=== PATIENT | female | born 1955 | race Caucasian/White ===

== ENCOUNTER 2022-11-25 10:02 | Inpatient (IN) | payer MEDICARE, MEDICAID, SELFPAY ==
[2022-11-25] VITALS (88 sets, daily range): BP systolic 58–145; BP diastolic 45–105; PULSE 73–119; RESP 12–31; TEMP 36.8–36.9; O2SAT 20–100; BMI 43.4; BMI 36.6
--- NOTE | 2022-11-25 09:54 | XR_ITS ---
The [address] [address] Patient Name: ANDERSON IZQUIERDO MRN: [id number] date: 1955 Sex: F Assigned Patient Location: ER Current Patient Location: ED.MAIN Accession/Order Number: [id number] Exam Date: 11/25/2022 10:22 Report Date: 11/25/2022 11:20 At the request of: ASHLEY CLARK Procedure: XR chest 1V XR chest 1V CLINICAL HISTORY: Shortness of breath. COMPARISON: 11/03/2020. TECHNIQUE: Single AP portable upright view of the chest. FINDINGS: Lungs are moderately well-expanded with mild perihilar congestion similar to prior. Cannot exclude trace left effusion but decreased from prior. No effusion on the right. No other active airspace opacities. No pneumothorax. Stable cardiomegaly. Atherosclerotic aorta. Osteopenia. Thoracic spondylosis. IMPRESSION: Cardiomegaly and congestion. Question trace left effusion but decreased from prior. Electronically authenticated by: SCOTTIE HOUSER Date: 11/25/2022 11:20
--- NOTE | 2022-11-25 09:54 | ECG_ITS ---
The [facility] Test Date: 2022-11-25 Pat Name: Alexa Christine Department: Room: - Gender: Female Office Specialist: : 1955 Requested By: MERVAT ARECHIGA Order Number: [id number] Reading MD: KAYLA KNOX Measurements Intervals Gerlaw Rate: 98 P: -19135 KS: -95187 QRS: 32 QRSD: 88 T: 188 QT: 336 QTc: 391 Interpretive Statements 1210 Atrial fibrillation 2420 RSR (QR) in lead V1/V2, consistent with right ventricular conduction delay Low voltage across the precordium 57056 Twave abnormality, possible inferolateral ischemia or digitalis effectt 7300 Indeterminate axis 9150 abnormal ECG No previous ECG available for comparison Electronically Signed On 11-26-2022 11:43:05 EDT by KAYLA KNOX
[2022-11-25 10:18] LABS: Basophils Absolute Auto 0.1 10^3/uL (0.0-0.1); Basophils Percent Auto 0.4 % (0.2-2.0); Eosinophils Absolute Auto 0.1 10^3/uL (0.0-0.7); Eosinophils Percent Auto 1.1 % (0.9-7.0); Hematocrit 41.7 % (36.0-48.0); Hemoglobin 12.2 g/dL (12.0-16.0); Immature Granulocytes Abs Auto 0.07 10^3/uL (0.00-0.03); Immature Granulocytes Pct Auto 0.6 % (0.0-0.5); Lymphocytes Absolute Auto 1.6 10^3/uL (1.2-3.8); Lymphocytes Percent Auto 12.9 % (20.5-60.0); Mean Corpuscular HGB Conc 29.3 g/dL (29.9-35.2); Mean Corpuscular Hemoglobin 26.5 pg (26.7-34.0); Mean Corpuscular Volume 90.7 fL (81.0-99.0); Mean Platelet Volume 9.3 fL (9.5-13.5); Monocytes Absolute Auto 0.9 10^3/uL (0.3-0.8); Monocytes Percent Auto 7.4 % (1.7-12.0); Neutrophils Absolute Auto 9.3 10^3/uL (1.4-6.5); Neutrophils Percent Auto 77.6 % (43.0-75.0); Platelet Count 213 10^3/uL (150-450); Red Cell Distribution Width 15.5 % (11.0-15.0)
[2022-11-25 10:30] LABS: HCO3 ABG 46.7 mmol/L (22.0-26.0); PO2 ABG 64.8 mmHg (80.0-100.0)
[2022-11-25 10:31] LABS: Allen Test POS (POSITIVE); Base Excess ABG 18.9 mmol/L (-2.0-2.0); Liters per Minute 5; O2 Mode NASAL CANNULA; Oxygen Saturation ABG 89.7 %; Puncture Site RIGHT RADIAL
[2022-11-25 10:33] LABS: pH ABG 7.221 (7.350-7.450)
[2022-11-25 10:44] LABS: Anion Gap 3.5; BUN Creatinine Ratio 18.6; Calcium 9.2 mg/dL (8.5-10.1); Carbon Dioxide 45.4 mmol/L (21.0-32.0); Chloride 97 mmol/L (98-107); Estimated GFR (African America >60 (>=60); Estimated GFR (Non-African Ame >60 (>=60); Glucose 173 mg/dL (74-106); Lactate/Lactic Acid 1.1 mmol/L (0.4-2.0); Potassium 3.9 mmol/L (3.5-5.1); Sodium 142 mmol/L (136-145); Troponin I High Sensitivity 21.9 pg/mL (4.0-51.3)
[2022-11-25] MEDS: METHYLPREDNISOLONE SOD SUCC PF 125 MG/2 ML VIAL IVP (10:59)
--- NOTE | 2022-11-25 11:03 | ED.SOB1 ---
HPI - SOB/Dyspnea General Chief Complaint: Shortness of Breath/Dyspnea Stated Complaint: shortness of breath Time Seen by Provider: 11/25/22 10:03 Source: caregiver Source comment: [facility] Mode of arrival: ambulance Limitations: altered mental status History of Present Illness HPI Narrative: patient brought in by ambulance for treatment of shortness fo breath, which began a few days ago but acutely worsened last night. No fever or chills. She is coughing and crying on arrival. Related Data Home Medications Medication Instructions Recorded Confirmed apixaban 5 mg tablet (Eliquis) 5 mg PO BID 11/25/22 11/25/22 atorvastatin 20 mg tablet 20 mg PO .QHS 11/25/22 11/25/22 digoxin 125 mcg (0.125 mg) tablet 0.125 mg PO .QD 11/25/22 11/25/22 dulaglutide 3 mg/0.5 mL 3 mg subcut QWEEK 11/25/22 11/25/22 subcutaneous pen injector (Trulicity) empagliflozin 25 mg tablet 25 mg PO .QD 11/25/22 11/25/22 (Jardiance) fluticasone 500 mcg-salmeterol 50 1 inh inhalation BID 11/25/22 11/25/22 mcg/dose blistr powdr for inhalation (Advair Diskus) furosemide 20 mg tablet 40 mg PO .QD 11/25/22 11/25/22 furosemide 40 mg tablet 40 mg PO .QD 11/25/22 11/25/22 gabapentin 100 mg capsule 100 mg PO .QD 11/25/22 11/25/22 insulin aspart U-100 100 unit/mL subcut 11/25/22 (3 mL) subcutaneous pen (Novolog FlexPen U-100 Insulin aspart) ipratropium 0.5 mg-albuterol 3 mg 3 ml inhalation Q4H PRN shortness 11/25/22 11/25/22 (2.5 mg base)/3 mL nebulization of breath or wheezing soln ipratropium bromide 21 mcg (0.03 2 spray intranasal QID PRN allergy 11/25/22 11/25/22 %) nasal spray symptoms metoprolol succinate 100 mg 100 mg PO .QD 11/25/22 11/25/22 tablet,extended release 24 hr metoprolol succinate 50 mg 50 mg PO .QD 11/25/22 11/25/22 tablet,extended release 24 hr ondansetron HCl 4 mg tablet 4 mg PO BID PRN nausea and vomiting 11/25/22 11/25/22 potassium chloride 20 mEq 20 meq PO .QD 11/25/22 11/25/22 tablet,extended release(part/cryst) sacubitril 49 mg-valsartan 51 mg 1 tab PO BID 11/25/22 11/25/22 tablet (Entresto) spironolactone 50 mg tablet 50 mg PO .QD 11/25/22 11/25/22 trazodone 50 mg tablet 50 mg PO .QHS 11/25/22 11/25/22 triamcinolone acetonide 0.1 % 1 applic topical PRN 11/25/22 11/25/22 topical cream Allergies Allergy/AdvReac Type Severity Reaction Status Date / Time cephalexin [From Keflex] Allergy Intermediate Verified 11/25/22 09:54 silver sulfadiazine Allergy Intermediate Verified 11/25/22 09:54 [From Silvadene] Exam Narrative Exam Narrative: Nurses notes and vital signs reviewed and patient is not hypoxic. afebrile General: Moaning and crying on arrival. Skin: Warm, dry, no pallor noted. Head: Normocephalic, atraumatic. Eye: Pupils are equal, round and EOMI. No scleral icterus. Ears, Nose, Mouth, and Throat: Oral mucosa is moist Cardiovascular: borderline tachycardia. Respiratory: Accessory muscle use or respiratory distress. Lungs with rales and rhonchi throughout Musculoskeletal: normal ROM, no calf or popliteal tenderness, trace lower extremity edema/swelling GI: Abdomen is soft, non-distended. Normal bowel sounds. No tenderness to palpation. No rebound, guarding, or rigidity noted. Neurological: A&O x4. No cranial nerve dysfunction observed. No truncal ataxia. Moves all extremities. Sensation intact. Psychiatric: Cooperative and interactive. Normal mood and affect. Constitutional Vital Signs - 24 hr 11/25/22 09:46 11/25/22 10:07 11/25/22 09:53 Temperature 98.5 F Pulse Rate 110 H Pulse Rate [Monitor] 108 H Respiratory Rate 25 H 20 Blood Pressure Blood Pressure [Left Arm] 92/62 Pulse Oximetry 90 L 90 L 92 L Oxygen Delivery Method Nasal Cannula Nasal Cannula Oxygen Delivery Flow Rate 5 5 Fraction of Inspired Oxygen 11/25/22 09:55 11/25/22 09:55 11/25/22 09:55 Temperature Pulse Rate 100 H 107 H 96 H Pulse Rate [Monitor] Respiratory Rate 25 H 26 H 24 Blood Pressure 82/62 L 82/62 L Blood Pressure [Left Arm] Pulse Oximetry 90 L 92 L Oxygen Delivery Method Oxygen Delivery Flow Rate Fraction of Inspired Oxygen 11/25/22 10:02 11/25/22 10:10 11/25/22 10:48 Temperature Pulse Rate 97 H 97 H Pulse Rate [Monitor] Respiratory Rate 30 H 25 H Blood Pressure Blood Pressure [Left Arm] Pulse Oximetry 93 L 89 L 92 L Oxygen Delivery Method BIPAP Oxygen Delivery Flow Rate Fraction of Inspired Oxygen 11/25/22 10:51 11/25/22 10:51 11/25/22 11:09 Temperature Pulse Rate 104 H Pulse Rate [Monitor] Respiratory Rate Blood Pressure 78/50 L Blood Pressure [Left Arm] Pulse Oximetry 92 L 92 L Oxygen Delivery Method BIPAP Oxygen Delivery Flow Rate Fraction of Inspired Oxygen 40 40 11/25/22 10:20 11/25/22 10:30 11/25/22 10:40 Temperature Pulse Rate 91 H 101 H 92 H Pulse Rate [Monitor] Respiratory Rate 23 25 H 23 Blood Pressure Blood Pressure [Left Arm] Pulse Oximetry 91 L 91 L 91 L Oxygen Delivery Method Oxygen Delivery Flow Rate Fraction of Inspired Oxygen 11/25/22 10:44 11/25/22 10:44 11/25/22 10:44 Temperature Pulse Rate 88 102 H 114 H Pulse Rate [Monitor] Respiratory Rate 20 17 19 Blood Pressure 78/52 L 78/52 L Blood Pressure [Left Arm] Pulse Oximetry 90 L 89 L 92 L Oxygen Delivery Method Oxygen Delivery Flow Rate Fraction of Inspired Oxygen 11/25/22 11:00 11/25/22 11:05 11/25/22 11:10 Temperature Pulse Rate 90 103 H 107 H Pulse Rate [Monitor] Respiratory Rate 20 15 16 Blood Pressure 58/45 L Blood Pressure [Left Arm] Pulse Oximetry 88 L 89 L 94 L Oxygen Delivery Method Oxygen Delivery Flow Rate Fraction of Inspired Oxygen 11/25/22 11:20 11/25/22 11:30 11/25/22 11:40 Temperature Pulse Rate 108 H 100 H 106 H Pulse Rate [Monitor] Respiratory Rate 16 21 19 Blood Pressure Blood Pressure [Left Arm] Pulse Oximetry 95 95 98 Oxygen Delivery Method Oxygen Delivery Flow Rate Fraction of Inspired Oxygen 11/25/22 11:46 11/25/22 11:46 11/25/22 11:50 Temperature Pulse Rate 89 92 H 101 H Pulse Rate [Monitor] Respiratory Rate 13 15 16 Blood Pressure Blood Pressure [Left Arm] Pulse Oximetry 96 99 96 Oxygen Delivery Method Oxygen Delivery Flow Rate Fraction of Inspired Oxygen 11/25/22 11:59 11/25/22 12:00 11/25/22 12:00 Temperature Pulse Rate 91 H 87 88 Pulse Rate [Monitor] Respiratory Rate 22 19 19 Blood Pressure 109/60 109/60 Blood Pressure [Left Arm] Pulse Oximetry 93 L 89 L 93 L Oxygen Delivery Method Oxygen Delivery Flow Rate Fraction of Inspired Oxygen 11/25/22 12:16 11/25/22 12:16 Temperature Pulse Rate 84 91 H Pulse Rate [Monitor] Respiratory Rate 15 14 Blood Pressure 114/65 114/65 Blood Pressure [Left Arm] Pulse Oximetry 99 92 L Oxygen Delivery Method Oxygen Delivery Flow Rate Fraction of Inspired Oxygen Course Vital Signs Vital signs: Vital Signs Temperature 98.5 F 11/25/22 09:46 Pulse Rate 108 H 11/25/22 09:46 Respiratory Rate 25 H 11/25/22 09:46 Blood Pressure 92/62 11/25/22 09:46 Pulse Oximetry 90 L 11/25/22 09:46 Oxygen Delivery Method Nasal Cannula 11/25/22 09:46 Oxygen Delivery Flow Rate 5 11/25/22 09:46 Temperature 98.2 F 11/25/22 13:33 Pulse Rate 88 11/25/22 18:16 Respiratory Rate 28 H 11/25/22 18:16 Blood Pressure 109/94 H 11/25/22 18:16 Pulse Oximetry 95 11/25/22 18:16 Oxygen Delivery Method Nasal Cannula 11/25/22 16:24 Oxygen Delivery Flow Rate 5 11/25/22 16:24 Fraction of Inspired Oxygen 40 11/25/22 14:53 MDM - SOB/Dyspnea MDM Narrative Medical decision making narrative: Patient was placed on maintenance mechanic millwright and EKG obtained. Blood drawn and sent for evaluation. portable chest x-ray obtained. ABG obtained. The patient's pH is 7.22 but her PCO2 was 114 hours patient to be started on BiPAP. Chest x-ray is consistent with acute congestive heart failure. BNP elevated. The patient initially had a blood pressure with borderline hypotension. I was reluctant to start normal saline IV fluid to the patient's exam findings and history of congestive heart failure. White blood cell count was elevated at 13k but lactate was negative. Patient was given IV Levaquin for coverage of any infiltrate that may not be identified due to the cephalization from the congestive heart failure. The cultures were obtained and are pending. The patient's blood pressure remained low therefore I ordered normal saline IV fluid at 500 mL's but also ordered 40 mg of Lasix IV. I ordered pressors to be started. the patient will need to be admitted to the ICU for continued care and monitoring of her blood pressure as well as and BiPAP use. Call placed to the on-call physician to discuss admission. Dr Chambers and I discussed the patient's case and she will be admitted for further evaluation and testing in the ICU. Lab Data Attestation: I reviewed the patient's lab results. Labs: Lab Results 11/25/22 11/25/22 Range/Units 10:01 10:19 WBC 12.0 H (4.0-11.0) 10^3/uL RBC 4.60 (4.20-5.40) 10^6/uL Hgb 12.2 (12.0-16.0) g/dL Hct 41.7 (36.0-48.0) % MCV 90.7 (81.0-99.0) fL MCH 26.5 L (26.7-34.0) pg MCHC 29.3 L (29.9-35.2) g/dL RDW 15.5 H (11.0-15.0) % Plt Count 213 (150-450) 10^3/uL MPV 9.3 L (9.5-13.5) fL Neut % (Auto) 77.6 H (43.0-75.0) % Lymph % (Auto) 12.9 L (20.5-60.0) % Sanders % (Auto) 7.4 (1.7-12.0) % Eos % (Auto) 1.1 (0.9-7.0) % Baso % (Auto) 0.4 (0.2-2.0) % Neut # (Auto) 9.3 H (1.4-6.5) 10^3/uL Lymph # (Auto) 1.6 (1.2-3.8) 10^3/uL Sanders # (Auto) 0.9 H (0.3-0.8) 10^3/uL Eos # (Auto) 0.1 (0.0-0.7) 10^3/uL Baso # (Auto) 0.1 (0.0-0.1) 10^3/uL Abs Immat Gran (auto) 0.07 H (0.00-0.03) 10^3/uL Imm/Tot Granulo (auto) 0.6 H (0.0-0.5) % Puncture Site Right radial ABG pH 7.221 L* (7.350-7.450) ABG pCO2 114.0 H* (35.0-45.0) mmHg ABG pO2 64.8 L (80.0-100.0) mmHg ABG HCO3 46.7 H (22.0-26.0) mmol/L ABG O2 Saturation 89.7 % ABG Base Excess 18.9 H (-2.0-2.0) mmol/L Mariano Test Pos (POSITIVE) O2 Liters/Min 5 Sodium 142 (136-145) mmol/L Potassium 3.9 (3.5-5.1) mmol/L Chloride 97 L (98-107) mmol/L Carbon Dioxide 45.4 H (21.0-32.0) mmol/L Anion Gap 3.5 BUN 13.0 (7.0-18.0) mg/dL Creatinine 0.70 (0.55-1.02) mg/dL Est GFR ( Amer) >60 (>=60) Est GFR (Non-Af Amer) >60 (>=60) BUN/Creatinine Ratio 18.6 Glucose 173 H (74-106) mg/dL Lactate 1.1 (0.4-2.0) mmol/L Calcium 9.2 (8.5-10.1) mg/dL Troponin I High Sens 21.9 (4.0-51.3) pg/mL NT-Pro-B Natriuret Pep 2297.0 H* (<=900.0) pg/mL ABG Data Attestation: I have reviewed the pertinent ABG results. Interpretation: acidosis with CO2 retention Imaging Data Chest x-ray: Attestation: I have reviewed the pertinent imaging results. Radiologist's impression: Patient Name: ANDERSON IZQUIERDO MRN: [facility]:[id number] date: 1955 Sex: F Assigned Patient Location: ER Current Patient Location: ED.MAIN Accession/Order Number: [id number] Exam Date: 11/25/2022 10:22 Report Date: 11/25/2022 11:20 At the request of: ASHLEY CLARK Procedure: XR chest 1V XR chest 1V CLINICAL HISTORY: Shortness of breath. COMPARISON: 11/03/2020. TECHNIQUE: Single AP portable upright view of the chest. FINDINGS: Lungs are moderately well-expanded with mild perihilar congestion similar to prior. Cannot exclude trace left effusion but decreased from prior. No effusion on the right. No other active airspace opacities. No pneumothorax. Stable cardiomegaly. Atherosclerotic aorta. Osteopenia. Thoracic spondylosis. IMPRESSION: Cardiomegaly and congestion. Question trace left effusion but decreased from prior. Electronically authenticated by: SCOTTIE HOUSER Date: 11/25/2022 11:20 ECG Data Attestation: ?I have reviewed the pertinent ECG results. Interpretation: EKG interpretation: Emergency Department physician interpretation. atrial fibrillation at 98bpm. Indeterminate axis, Right ventricular conduction delay. Non-specific ST-T changes. No ST segment elevation. SOme ST depression noted. Discharge Plan Discharge Chief Complaint: Shortness of Breath/Dyspnea Clinical Impression: Acute hypotension, Congestive heart failure Patient Disposition: Admitted As Inpatient Time of Disposition Decision: 11:04 Discharge Date/Time: 11/25/22 13:24
[2022-11-25] MEDS: 0.9 % SODIUM CHLORIDE 500 ML IV (11:26)
[2022-11-25] MEDS: FUROSEMIDE 40 MG/4 ML VIAL IVP (11:27)
[2022-11-25] MEDS: LEVOFLOXACIN IN DEXTROSE 5 % 750 MG/150 ML IV.SOLN 100 MG IV (11:37)
[2022-11-25] MEDS: NOREPINEPHRINE BITARTRATE 4 MG in DEXTROSE 5 % IN WATER 250 ML 30.48 MG IV (11:38)
--- NOTE | 2022-11-25 15:00 | CA_ITS ---
Patient: ANDERSON IZQUIERDO Exam Date: 11/27/2022 : 1955 Gender:F Ordering : DR SABINE TANNER . Admission #: [id number] Family : Order #: [id number] CLICK HERE TO VIEW EXAM ECHOCARDIOGRAM REPORT PROCEDURE: CA ECHO DOPPLER COMPLETE INDICATIONS: CHF COMPARISON: None. DESCRIPTION: COMPLETE ECHOCARDIOGRAM Real-time transthoracic echocardiography with 2D, M-mode, spectral and color flow Doppler performed. QUALITY: Technical quality was adequate. LEFT VENTRICLE: Normal chamber size. Moderate concentric left ventricular hypertrophy. LV EF: Global left ventricular systolic function is normal. Visual estimation of left ventricular ejection fraction is 55-60% DIASTOLIC: Not adequately assessed due to heart rhythm. ATRIAL SEPTUM: Inadequately seen. LEFT ATRIUM: The left atrium appears enlarged. RIGHT ATRIUM: The right atrium appears enlarged. RIGHT VENTRICLE: Right ventricle is poorly seen; appears enlarged with reduced systolic function. TRICUSPID VALVE: Normal mobility and thickness. No stenosis with mild regurgitation. Moderate to severe pulmonary hypertension.RVSP 59mmHg MITRAL VALVE: Normal mobility and thickness. No evidence of mitral valve stenosis. There is no mitral annular calcification. No mitral regurgitation. AORTIC VALVE: Normal trileaflet appearance. Thickened aortic valve. Normal leaflet mobility. No evidence of aortic valve stenosis. No aortic regurgitation. AORTIC ROOT: Mildly dilated. Measuring 4.2cm. The ascending aorta is mildly dilated measuring 3.7cm. PULMONIC VALVE: Normal thickness and mobility. No stenosis. Trivial regurgitation. PERICARDIUM: Anterior free space; trivial effusion versus fat pad IVC: Mild dilation measuring .6cm with partial collapse. CONCLUSION: 1. Global left ventricular systolic function is normal; visually estimated ejection fraction is 55 to 60% 2. Moderate left ventricular hypertrophy 3. Biatrial enlargement 4. The right ventricle appears enlarged with reduced systolic function 5. Mild tricuspid regurgitation 6. Moderately elevated right ventricular systolic pressure; RVSP 59 mmHg 7. The aortic root and ascending aorta are mildly dilated 8. Anterior free space; trivial effusion versus fat pad Adult Echocardiography Procedure Report Left Ventricle LVEDD (3.7 - 5.6 cm): 4.70 cm LVESD (2.2 - 4.0 cm): 3.00 cm LVIVS thickness (0.6 - 1.2 cm): 1.35 cm LVPW thickness (0.5 - 1.0 cm): 1.16 cm e': 0.13 m/s E - e': 5.97 LVOT Max Gradient: 2.33 mm[Hg] LVOT Area (cm2): 0.76 m/s Peak Velocity (LVOT): 0.76 m/s LVOT Diameter 2.45 cm Left Atrium Left Atrium Systolic Dimension: 5.31 cm Mitral Valve Mitral Valve E-Wave Peak Velocity: 0.75 m/s Right Ventricle RV Internal Diastolic Dimension: 4.24 cm Aorta AO Root Diam: 4.22 cm Ascending Ao Diam: 3.71 cm Aortic Valve AoV Area (Peak Jose): 2.49 cm2, 2.49 cm2 Peak Velocity(Antegrade Flow): 1.44 m/s Peak Gradient(Antegrade Flow): 8.26 mm[Hg] Tricuspid Valve Peak Velocity (Regurgitant Flow): 2.86 m/s, 2.46 m/s, 3.32 m/s Pulmonic Valve Peak Velocity: 0.99 m/s Peak Gradient: 3.30 mm[Hg], 4.54 mm[Hg] Right Atrium Right Atrium Systolic Pressure: 109.73 ml, 109.73 ml Dictated by: Philippe Mann M.D. on 11/30/2022 at 12:43 Approved by: Philippe Mann M.D. on 11/30/2022 at 12:47
--- NOTE | 2022-11-25 15:16 | PC.NURSE ---
Patient is on a BIPAP machine.
--- NOTE | 2022-11-25 15:24 | PC.NURSE ---
bilateral excoriation under both breasts with a strong odor
--- NOTE | 2022-11-25 15:27 | PC.NURSE ---
patient is unable to answer questions at this time
--- NOTE | 2022-11-25 15:36 | P.HP_ITS ---
H&P: HPI History of Present Illness Chief complaint: shortness of breath Narrative: 67 y/o female with a history of COPD and CHF presents with worsening SOB. C/o increased symptoms over the past few days. Severe SOB and chest tightness. Increased sedation and sleeping more. Frequent cough and sputum. To ER and 88% on room air. Placed on 5 LPM. ABG showed CO2 114 and placed on BiPAP. Chest x-ray with fluid overload and given IV lasix. Given levaquin and steroids. BNP elevated. BP low and started levophed. Admitted to ICU for treatment. Review of Systems ROS Narrative Not able to obtain due to somnolence Meds Home Medications and Allergies Home Medications Medication Instructions Recorded Confirmed Type apixaban 5 mg tablet (Eliquis) 5 mg PO BID 11/25/22 11/25/22 History atorvastatin 20 mg tablet 20 mg PO .QHS 11/25/22 11/25/22 History digoxin 125 mcg (0.125 mg) tablet 0.125 mg PO .QD 11/25/22 11/25/22 History dulaglutide 3 mg/0.5 mL 3 mg subcut QWEEK 11/25/22 11/25/22 History subcutaneous pen injector (Trulicity) empagliflozin 25 mg tablet 25 mg PO .QD 11/25/22 11/25/22 History (Jardiance) fluticasone 500 mcg-salmeterol 50 1 inh inhalation BID 11/25/22 11/25/22 History mcg/dose blistr powdr for inhalation (Advair Diskus) furosemide 20 mg tablet 20 mg PO .QD 11/25/22 11/25/22 History furosemide 40 mg tablet 40 mg PO .QD 11/25/22 11/25/22 History gabapentin 100 mg capsule 100 mg PO .QD 11/25/22 11/25/22 History insulin aspart U-100 100 unit/mL subcut 11/25/22 History (3 mL) subcutaneous pen (Novolog FlexPen U-100 Insulin aspart) ipratropium 0.5 mg-albuterol 3 mg 3 ml inhalation Q4H PRN shortness 11/25/22 11/25/22 History (2.5 mg base)/3 mL nebulization of breath or wheezing soln ipratropium bromide 21 mcg (0.03 2 spray intranasal QID PRN allergy 11/25/22 11/25/22 History %) nasal spray symptoms metoprolol succinate 100 mg 100 mg PO .QD 11/25/22 11/25/22 History tablet,extended release 24 hr metoprolol succinate 50 mg 50 mg PO .QD 11/25/22 11/25/22 History tablet,extended release 24 hr ondansetron HCl 4 mg tablet 4 mg PO BID PRN nausea and vomiting 11/25/22 11/25/22 History potassium chloride 20 mEq 20 meq PO .QD 11/25/22 11/25/22 History tablet,extended release(part/cryst) sacubitril 49 mg-valsartan 51 mg 1 tab PO BID 11/25/22 11/25/22 History tablet (Entresto) spironolactone 50 mg tablet 50 mg PO .QD 11/25/22 11/25/22 History trazodone 50 mg tablet 50 mg PO .QHS 11/25/22 11/25/22 History triamcinolone acetonide 0.1 % 1 applic topical PRN 11/25/22 11/25/22 History topical cream Allergies Allergy/AdvReac Type Severity Reaction Status Date / Time cephalexin [From Keflex] Allergy Intermediate Verified 11/25/22 09:54 silver sulfadiazine Allergy Intermediate Verified 11/25/22 09:54 [From Silvadene] Exam Constitutional Vital Signs - 24 hr 11/25/22 09:46 11/25/22 10:07 11/25/22 09:53 Temperature 98.5 F Pulse Rate 110 H Pulse Rate [Monitor] 108 H Respiratory Rate 25 H 20 Blood Pressure Blood Pressure [Left Arm] 92/62 Pulse Oximetry 90 L 90 L 92 L Oxygen Delivery Method Nasal Cannula Nasal Cannula Oxygen Delivery Flow Rate 5 5 Fraction of Inspired Oxygen 11/25/22 09:55 11/25/22 09:55 11/25/22 09:55 Temperature Pulse Rate 100 H 107 H 96 H Pulse Rate [Monitor] Respiratory Rate 25 H 26 H 24 Blood Pressure 82/62 L 82/62 L Blood Pressure [Left Arm] Pulse Oximetry 90 L 92 L Oxygen Delivery Method Oxygen Delivery Flow Rate Fraction of Inspired Oxygen 11/25/22 10:02 11/25/22 10:10 11/25/22 10:48 Temperature Pulse Rate 97 H 97 H Pulse Rate [Monitor] Respiratory Rate 30 H 25 H Blood Pressure Blood Pressure [Left Arm] Pulse Oximetry 93 L 89 L 92 L Oxygen Delivery Method BIPAP Oxygen Delivery Flow Rate Fraction of Inspired Oxygen 11/25/22 10:51 11/25/22 10:51 11/25/22 11:09 Temperature Pulse Rate 104 H Pulse Rate [Monitor] Respiratory Rate Blood Pressure 78/50 L Blood Pressure [Left Arm] Pulse Oximetry 92 L 92 L Oxygen Delivery Method BIPAP Oxygen Delivery Flow Rate Fraction of Inspired Oxygen 40 40 11/25/22 10:20 11/25/22 10:30 11/25/22 10:40 Temperature Pulse Rate 91 H 101 H 92 H Pulse Rate [Monitor] Respiratory Rate 23 25 H 23 Blood Pressure Blood Pressure [Left Arm] Pulse Oximetry 91 L 91 L 91 L Oxygen Delivery Method Oxygen Delivery Flow Rate Fraction of Inspired Oxygen 11/25/22 10:44 11/25/22 10:44 11/25/22 10:44 Temperature Pulse Rate 88 102 H 114 H Pulse Rate [Monitor] Respiratory Rate 20 17 19 Blood Pressure 78/52 L 78/52 L Blood Pressure [Left Arm] Pulse Oximetry 90 L 89 L 92 L Oxygen Delivery Method Oxygen Delivery Flow Rate Fraction of Inspired Oxygen 11/25/22 11:00 11/25/22 11:05 11/25/22 11:10 Temperature Pulse Rate 90 103 H 107 H Pulse Rate [Monitor] Respiratory Rate 20 15 16 Blood Pressure 58/45 L Blood Pressure [Left Arm] Pulse Oximetry 88 L 89 L 94 L Oxygen Delivery Method Oxygen Delivery Flow Rate Fraction of Inspired Oxygen 11/25/22 11:20 11/25/22 11:30 11/25/22 11:40 Temperature Pulse Rate 108 H 100 H 106 H Pulse Rate [Monitor] Respiratory Rate 16 21 19 Blood Pressure Blood Pressure [Left Arm] Pulse Oximetry 95 95 98 Oxygen Delivery Method Oxygen Delivery Flow Rate Fraction of Inspired Oxygen 11/25/22 11:46 11/25/22 11:46 11/25/22 11:50 Temperature Pulse Rate 89 92 H 101 H Pulse Rate [Monitor] Respiratory Rate 13 15 16 Blood Pressure Blood Pressure [Left Arm] Pulse Oximetry 96 99 96 Oxygen Delivery Method Oxygen Delivery Flow Rate Fraction of Inspired Oxygen 11/25/22 11:59 11/25/22 12:00 11/25/22 12:00 Temperature Pulse Rate 91 H 87 88 Pulse Rate [Monitor] Respiratory Rate 22 19 19 Blood Pressure 109/60 109/60 Blood Pressure [Left Arm] Pulse Oximetry 93 L 89 L 93 L Oxygen Delivery Method Oxygen Delivery Flow Rate Fraction of Inspired Oxygen 11/25/22 12:16 11/25/22 13:33 11/25/22 13:33 Temperature 98.2 F 98.2 F Pulse Rate 84 77 77 Pulse Rate [Monitor] Respiratory Rate 15 22 22 Blood Pressure 114/65 Blood Pressure [Left Arm] 112/80 H 112/80 H Pulse Oximetry 99 94 L 94 L Oxygen Delivery Method BIPAP BIPAP Oxygen Delivery Flow Rate Fraction of Inspired Oxygen 11/25/22 14:53 11/25/22 12:16 11/25/22 12:31 Temperature Pulse Rate 91 H 86 Pulse Rate [Monitor] Respiratory Rate 20 14 14 Blood Pressure 114/65 Blood Pressure [Left Arm] Pulse Oximetry 20 L 92 L 100 Oxygen Delivery Method BIPAP Oxygen Delivery Flow Rate Fraction of Inspired Oxygen 40 11/25/22 12:48 11/25/22 12:50 11/25/22 12:52 Temperature Pulse Rate 92 H 89 82 Pulse Rate [Monitor] Respiratory Rate 12 19 22 Blood Pressure 118/87 H Blood Pressure [Left Arm] Pulse Oximetry 99 98 96 Oxygen Delivery Method Oxygen Delivery Flow Rate Fraction of Inspired Oxygen 11/25/22 12:52 11/25/22 12:52 11/25/22 13:00 Temperature Pulse Rate 89 84 88 Pulse Rate [Monitor] Respiratory Rate 16 24 22 Blood Pressure 118/87 H 109/63 Blood Pressure [Left Arm] Pulse Oximetry 94 L 93 L Oxygen Delivery Method Oxygen Delivery Flow Rate Fraction of Inspired Oxygen 11/25/22 13:15 11/25/22 13:18 11/25/22 13:20 Temperature Pulse Rate 91 H 89 89 Pulse Rate [Monitor] Respiratory Rate 20 20 19 Blood Pressure 119/53 L Blood Pressure [Left Arm] Pulse Oximetry Oxygen Delivery Method Oxygen Delivery Flow Rate Fraction of Inspired Oxygen 11/25/22 13:26 11/25/22 13:26 11/25/22 13:28 Temperature Pulse Rate 90 93 H 81 Pulse Rate [Monitor] Respiratory Rate 19 24 17 Blood Pressure 112/80 H Blood Pressure [Left Arm] Pulse Oximetry 81 L Oxygen Delivery Method Oxygen Delivery Flow Rate Fraction of Inspired Oxygen 11/25/22 14:02 11/25/22 14:15 11/25/22 14:31 Temperature Pulse Rate 78 91 H 76 Pulse Rate [Monitor] Respiratory Rate 24 27 H 21 Blood Pressure 128/90 H 113/84 H 119/79 Blood Pressure [Left Arm] Pulse Oximetry 92 L 95 Oxygen Delivery Method Oxygen Delivery Flow Rate Fraction of Inspired Oxygen 11/25/22 14:45 11/25/22 15:07 11/25/22 15:10 Temperature Pulse Rate 78 86 84 Pulse Rate [Monitor] Respiratory Rate 19 26 H 27 H Blood Pressure 136/78 H Blood Pressure [Left Arm] Pulse Oximetry 93 L 92 L 91 L Oxygen Delivery Method Oxygen Delivery Flow Rate Fraction of Inspired Oxygen 11/25/22 15:20 11/25/22 15:22 11/25/22 15:22 Temperature Pulse Rate 80 84 81 Pulse Rate [Monitor] Respiratory Rate 25 H 26 H 24 Blood Pressure 140/92 H Blood Pressure [Left Arm] Pulse Oximetry 92 L 91 L 91 L Oxygen Delivery Method Oxygen Delivery Flow Rate Fraction of Inspired Oxygen 11/25/22 15:22 11/25/22 15:30 Temperature Pulse Rate 73 76 Pulse Rate [Monitor] Respiratory Rate 30 H 23 Blood Pressure 140/92 H 143/84 H Blood Pressure [Left Arm] Pulse Oximetry 92 L 91 L Oxygen Delivery Method Oxygen Delivery Flow Rate Fraction of Inspired Oxygen Documenting provider has reviewed patient's vital signs: yes Common normals: no apparent distress and well nourished Nutritional appearance: overweight HENMT Common normals: normocephalic Eye Common normals: PERRL and EOMs intact bilaterally Neck & C-Spine Common normals: no lymphadenopathy, supple and no carotid bruits Respiratory Auscultation: diminished lung sounds bilateral Cardio Common normals: regular rate, regular rhythm, no gallops, no murmurs and no rub GI Common normals: Normal to inspection, nondistended, normoactive bowel sounds present and non-tender Extremity General: no edema Results Labs Labs: Short CBC 11/25/22 Range/Units 10:01 WBC 12.0 H (4.0-11.0) 10^3/uL Hgb 12.2 (12.0-16.0) g/dL Hct 41.7 (36.0-48.0) % Plt Count 213 (150-450) 10^3/uL BMP 11/25/22 10:01 Sodium 142 Potassium 3.9 Chloride 97 L Carbon Dioxide 45.4 H BUN 13.0 Creatinine 0.70 Glucose 173 H Calcium 9.2 ABG ABG results: 11/25/22 10:19 ABG pH 7.221 L* ABG pCO2 114.0 H* ABG pO2 64.8 L ABG HCO3 46.7 H ABG O2 Saturation 89.7 ABG Base Excess 18.9 H Attestation: I have reviewed the pertinent ABG results. Imaging Chest x-ray: Attestation: I have reviewed the pertinent imaging results. Assessment and Plan Assessment and Plan (1) Acute on chronic HFrEF (heart failure with reduced ejection fraction): (2) Acute on chronic respiratory failure with hypoxia and hypercapnia: (3) COPD with exacerbation: (4) Acute hypotension: (5) Type 2 diabetes mellitus with hyperglycemia: (6) Benign essential hypertension: (7) Paroxysmal atrial fibrillation: (8) Obesity (BMI 30-39.9): Plan Given IV lasix for fluid overload and will start bumex drip. Continue BiPAP for hypercapnea and monitor ABG. Start antibiotics, steroids, and breathing treatments for COPD exacerbation. Continue levophed for hypotension. Repeat x- ray in am. Resume home medication. Will need PT/OT evaluation. Check echo. Add insulin sliding scale. Will need 3-4 days in the hospital.
[2022-11-25] MEDS: BUMETANIDE 10 MG in 0.9 % SODIUM CHLORIDE 160 ML 20 MG IV (15:44)
--- NOTE | 2022-11-25 16:07 | PC.NURSE ---
BUMEX DRIP STARTED ORDERED . HERMOSILLO EMPTIED AT TIME OF START
--- NOTE | 2022-11-25 16:24 | RESP.RT ---
removed from BiPAP and placed on 5 LPM NC
[2022-11-25] MEDS: NOREPINEPHRINE BITARTRATE 4 MG in DEXTROSE 5 % IN WATER 250 ML 37.5 MG IV (17:10)
[2022-11-25] MEDS: METHYLPREDNISOLONE SOD SUCC PF 125 MG/2 ML VIAL 60 MG IVP ×2 (17:11→22:28)
[2022-11-25 17:35] LABS: Glucometer 287 mg/dL (74-106)
[2022-11-25] MEDS: INSULIN ASPART 300 UNIT/3 ML PEN SUBQ ×2 (18:23→22:29)
[2022-11-25 22:24] LABS: Glucometer 329 mg/dL (74-106)
[2022-11-25] MEDS: APIXABAN 5 MG TABLET PO (22:29)
[2022-11-25] MEDS: ATORVASTATIN CALCIUM 20 MG TABLET PO (22:29)
[2022-11-25] MEDS: TRAZODONE HCL 50 MG TABLET PO (22:29)
[2022-11-25] MEDS: ALBUTEROL SULFATE 2.5 MG/3 ML VIAL NEB IH (23:23)
[2022-11-25] MEDS: BUDESONIDE 0.5 MG/2 ML AMPULE NEB IH (23:25)
--- NOTE | 2022-11-25 23:40 | RESP.RT ---
Placed patient back on bipap at this time
[2022-11-26] VITALS (106 sets, daily range): BP systolic 66–138; BP diastolic 33–100; PULSE 79–162; RESP 10–46; TEMP 36.6; O2SAT 76–100
--- NOTE | 2022-11-26 02:36 | RESP.RT ---
increased to 50
--- NOTE | 2022-11-26 02:38 | RESP.RT ---
increased to 50
--- NOTE | 2022-11-26 02:39 | RESP.RT ---
increase to 50%
--- NOTE | 2022-11-26 02:40 | RESP.RT ---
increase to 50%
[2022-11-26] MEDS: ALBUTEROL SULFATE 2.5 MG/3 ML VIAL NEB IH ×2 (04:13→11:02)
[2022-11-26 04:41] LABS: pH ABG 7.341 (7.350-7.450)
[2022-11-26 04:42] LABS: ABG PCO2 79.3 mmHg (35.0-45.0); PO2 ABG 72.8 mmHg (80.0-100.0)
[2022-11-26 04:43] LABS: Allen Test POSITIVE (POSITIVE); Base Excess ABG 17.1 mmol/L (-2.0-2.0); Fractionated Inspired Oxygen 50 %; HCO3 ABG 42.9 mmol/L (22.0-26.0); O2 Mode BIPAP; Oxygen Saturation ABG 95.1 %; Puncture Site R RADIAL
[2022-11-26 04:44] LABS: BIPAP Pressure 18/5; Rate 20
[2022-11-26 05:28] LABS: Basophils Percent Auto 0.2 % (0.2-2.0); Hematocrit 41.4 % (36.0-48.0); Hemoglobin 12.5 g/dL (12.0-16.0); Immature Granulocytes Abs Auto 0.05 10^3/uL (0.00-0.03); Lymphocytes Absolute Auto 0.6 10^3/uL (1.2-3.8); Lymphocytes Percent Auto 10.9 % (20.5-60.0); Mean Corpuscular HGB Conc 30.2 g/dL (29.9-35.2); Mean Corpuscular Hemoglobin 26.8 pg (26.7-34.0); Mean Corpuscular Volume 88.8 fL (81.0-99.0); Monocytes Absolute Auto 0.2 10^3/uL (0.3-0.8); Monocytes Percent Auto 4.2 % (1.7-12.0); Neutrophils Absolute Auto 4.4 10^3/uL (1.4-6.5); Neutrophils Percent Auto 83.7 % (43.0-75.0); Platelet Count 199 10^3/uL (150-450); Red Blood Count 4.66 10^6/uL (4.20-5.40); Red Cell Distribution Width 15.5 % (11.0-15.0); White Blood Count 5.2 10^3/uL (4.0-11.0)
[2022-11-26 06:00] LABS: Alanine Aminotransferase <6 U/L (14-59); Albumin Globulin Ratio 0.5; Albumin Level 2.7 g/dL (3.4-5.0); Alkaline Phosphatase 88 U/L (46-116); Anion Gap 9.7; Aspartate Amino Transferase 16 U/L (15-37); BUN Creatinine Ratio 28.7; Bilirubin Total 0.5 mg/dL (0.2-1.0); Calcium 9.5 mg/dL (8.5-10.1); Carbon Dioxide 36.7 mmol/L (21.0-32.0); Chloride 98 mmol/L (98-107); Estimated GFR (African America >60 (>=60); Estimated GFR (Non-African Ame 55 (>=60); Globulin 5.2 g/dL; Glucose 332 mg/dL (74-106); Potassium 4.4 mmol/L (3.5-5.1); Sodium 140 mmol/L (136-145); Total Protein 7.9 g/dL (6.4-8.2)
--- NOTE | 2022-11-26 06:00 | XR_ITS ---
[place] [id number] Patient Name: ANDERSON IZQUIERDO MRN: [id number] date: 1955 Sex: F Assigned Patient Location: ICU Current Patient Location: ICU Accession/Order Number: [id number] Exam Date: 11/26/2022 06:10 Report Date: 11/26/2022 08:15 At the request of: SABINE TANNER Procedure: XR chest 1V Exam: Radiographs: XR chest 1V Reason for exam: Dyspnea Comparison: Chest x-ray from yesterday IMPRESSION: Pulmonary venous hypertension. Chest is otherwise unremarkable. Electronically authenticated by: GAB DE LA CRUZ Date: 11/26/2022 08:15
[2022-11-26] MEDS: METHYLPREDNISOLONE SOD SUCC PF 125 MG/2 ML VIAL 60 MG IVP ×4 (06:01→22:58)
[2022-11-26 07:44] LABS: Glucometer 311 mg/dL (74-106)
[2022-11-26] MEDS: INSULIN ASPART 300 UNIT/3 ML PEN SUBQ ×4 (07:45→21:27)
[2022-11-26] MEDS: POTASSIUM CHLORIDE 10 MEQ ER TABLET 20 MEQ PO (09:09)
[2022-11-26] MEDS: METOPROLOL SUCCINATE 100 MG TAB.ER.24H PO (09:09)
[2022-11-26] MEDS: SPIRONOLACTONE 25 MG TABLET 50 MG PO (09:09)
[2022-11-26] MEDS: GABAPENTIN 100 MG CAPSULE PO (09:10)
[2022-11-26] MEDS: APIXABAN 5 MG TABLET PO ×2 (09:10→21:24)
[2022-11-26] MEDS: DIGOXIN 125 MCG TABLET PO (09:10)
[2022-11-26] MEDS: ACETAMINOPHEN 500 MG TABLET 1000 MG PO ×3 (09:10→23:31)
[2022-11-26] MEDS: CANAGLIFLOZIN 100 MG TABLET 300 MG PO (09:37)
[2022-11-26] MEDS: BUDESONIDE 0.5 MG/2 ML AMPULE NEB IH (11:03)
--- NOTE | 2022-11-26 11:15 | RESP.RT ---
o2 decreased to 40%
[2022-11-26 12:07] LABS: Glucometer 330 mg/dL (74-106)
[2022-11-26] MEDS: SACUBITRIL/VALSARTAN 1 EACH TABLET 2 TAB PO ×2 (12:07→21:24)
[2022-11-26] MEDS: FUROSEMIDE 40 MG/4 ML VIAL IVP (12:07)
--- NOTE | 2022-11-26 14:07 | PM.PN ---
Progress Note: Subjective Subjective Interval history: Patient improved overnight. Remains on BiPAP and ABG showed improved CO2. More alert this am and answering questions. Continued to have chest tightness and SOB. Edema improved. Afebrile. Starting to feel hungry and no emesis or diarrhea. Exam Constitutional Vital Signs - 24 hr 11/25/22 14:53 11/25/22 14:15 11/25/22 14:31 Temperature Pulse Rate 91 H 76 Pulse Rate [Monitor] Respiratory Rate 20 27 H 21 Blood Pressure 113/84 H 119/79 Pulse Oximetry 20 L 92 L 95 Oxygen Delivery Method BIPAP Oxygen Delivery Flow Rate Fraction of Inspired Oxygen 40 11/25/22 14:45 11/25/22 15:07 11/25/22 15:10 Temperature Pulse Rate 78 86 84 Pulse Rate [Monitor] Respiratory Rate 19 26 H 27 H Blood Pressure 136/78 H Pulse Oximetry 93 L 92 L 91 L Oxygen Delivery Method Oxygen Delivery Flow Rate Fraction of Inspired Oxygen 11/25/22 15:20 11/25/22 15:22 11/25/22 15:22 Temperature Pulse Rate 80 84 81 Pulse Rate [Monitor] Respiratory Rate 25 H 26 H 24 Blood Pressure 140/92 H Pulse Oximetry 92 L 91 L 91 L Oxygen Delivery Method Oxygen Delivery Flow Rate Fraction of Inspired Oxygen 11/25/22 15:22 11/25/22 15:30 11/25/22 15:44 Temperature Pulse Rate 73 76 Pulse Rate [Monitor] Respiratory Rate 30 H 23 Blood Pressure 140/92 H 143/84 H 143/84 H Pulse Oximetry 92 L 91 L Oxygen Delivery Method Oxygen Delivery Flow Rate Fraction of Inspired Oxygen 11/25/22 16:08 11/25/22 16:24 11/25/22 17:35 Temperature Pulse Rate 81 85 Pulse Rate [Monitor] Respiratory Rate Blood Pressure Pulse Oximetry 96 Oxygen Delivery Method Nasal Cannula Oxygen Delivery Flow Rate 5 Fraction of Inspired Oxygen 11/25/22 15:30 11/25/22 15:45 11/25/22 16:01 Temperature Pulse Rate 74 80 79 Pulse Rate [Monitor] Respiratory Rate 21 20 16 Blood Pressure 143/84 H 142/100 H 124/68 H Pulse Oximetry 92 L 96 96 Oxygen Delivery Method Oxygen Delivery Flow Rate Fraction of Inspired Oxygen 11/25/22 16:16 11/25/22 16:30 11/25/22 16:45 Temperature Pulse Rate 78 90 86 Pulse Rate [Monitor] Respiratory Rate 31 H 19 29 H Blood Pressure 119/85 H 135/76 H 135/105 H Pulse Oximetry 97 90 L 96 Oxygen Delivery Method Oxygen Delivery Flow Rate Fraction of Inspired Oxygen 11/25/22 17:00 11/25/22 17:15 11/25/22 17:30 Temperature Pulse Rate 82 78 84 Pulse Rate [Monitor] Respiratory Rate 28 H 28 H 25 H Blood Pressure 129/89 H 130/88 H 125/83 H Pulse Oximetry 96 97 96 Oxygen Delivery Method Oxygen Delivery Flow Rate Fraction of Inspired Oxygen 11/25/22 17:45 11/25/22 18:00 11/25/22 18:16 Temperature Pulse Rate 85 83 88 Pulse Rate [Monitor] Respiratory Rate 26 H 23 28 H Blood Pressure 125/72 H 131/81 H 109/94 H Pulse Oximetry 95 95 95 Oxygen Delivery Method Oxygen Delivery Flow Rate Fraction of Inspired Oxygen 11/25/22 18:16 11/25/22 18:31 11/25/22 18:45 Temperature Pulse Rate 90 91 H 81 Pulse Rate [Monitor] Respiratory Rate 23 20 24 Blood Pressure 109/94 H 141/87 H 131/102 H Pulse Oximetry 97 Oxygen Delivery Method Oxygen Delivery Flow Rate Fraction of Inspired Oxygen 11/25/22 18:53 11/25/22 19:00 11/25/22 19:15 Temperature Pulse Rate 94 H 93 H 93 H Pulse Rate [Monitor] Respiratory Rate 27 H 28 H 25 H Blood Pressure 136/83 H 120/84 H 118/81 H Pulse Oximetry 95 96 96 Oxygen Delivery Method Oxygen Delivery Flow Rate Fraction of Inspired Oxygen 11/25/22 19:15 11/25/22 19:30 11/25/22 22:00 Temperature Pulse Rate 88 86 Pulse Rate [Monitor] 94 H Respiratory Rate 25 H 24 Blood Pressure 118/81 H 117/78 Pulse Oximetry 96 96 Oxygen Delivery Method Oxygen Delivery Flow Rate Fraction of Inspired Oxygen 11/25/22 20:26 11/25/22 20:26 11/25/22 21:01 Temperature Pulse Rate 96 H 91 H Pulse Rate [Monitor] Respiratory Rate Blood Pressure Pulse Oximetry 93 L 93 L 94 L Oxygen Delivery Method BIPAP Oxygen Delivery Flow Rate Fraction of Inspired Oxygen 40 40 11/25/22 19:30 11/25/22 19:45 11/25/22 20:00 Temperature Pulse Rate 96 H 94 H 97 H Pulse Rate [Monitor] Respiratory Rate 24 24 24 Blood Pressure 117/78 116/71 119/77 Pulse Oximetry 96 95 94 L Oxygen Delivery Method Oxygen Delivery Flow Rate Fraction of Inspired Oxygen 11/25/22 20:15 11/25/22 20:30 11/25/22 20:45 Temperature Pulse Rate 88 93 H 93 H Pulse Rate [Monitor] Respiratory Rate 23 27 H 24 Blood Pressure 132/81 H 115/78 114/81 H Pulse Oximetry 93 L 94 L 94 L Oxygen Delivery Method Oxygen Delivery Flow Rate Fraction of Inspired Oxygen 11/25/22 23:23 11/25/22 23:23 11/25/22 23:23 Temperature Pulse Rate 100 H 100 H Pulse Rate [Monitor] Respiratory Rate 23 Blood Pressure Pulse Oximetry 96 96 96 Oxygen Delivery Method BIPAP Oxygen Delivery Flow Rate 4 Fraction of Inspired Oxygen 40 40 11/26/22 00:00 11/26/22 00:00 11/25/22 20:45 Temperature Pulse Rate 88 97 H Pulse Rate [Monitor] 88 Respiratory Rate 16 23 Blood Pressure 114/81 H Pulse Oximetry 95 Oxygen Delivery Method Oxygen Delivery Flow Rate Fraction of Inspired Oxygen 11/25/22 21:00 11/25/22 21:15 11/25/22 21:30 Temperature Pulse Rate 95 H 94 H 82 Pulse Rate [Monitor] Respiratory Rate 22 23 18 Blood Pressure 145/72 H 113/81 H 109/73 Pulse Oximetry 96 97 95 Oxygen Delivery Method Oxygen Delivery Flow Rate Fraction of Inspired Oxygen 11/25/22 21:46 11/25/22 22:00 11/25/22 22:15 Temperature Pulse Rate 104 H 103 H 108 H Pulse Rate [Monitor] Respiratory Rate 17 20 23 Blood Pressure 134/92 H 140/102 H 135/83 H Pulse Oximetry 96 96 94 L Oxygen Delivery Method Oxygen Delivery Flow Rate Fraction of Inspired Oxygen 11/25/22 22:30 11/25/22 22:45 11/25/22 23:00 Temperature Pulse Rate 94 H 104 H 109 H Pulse Rate [Monitor] Respiratory Rate 25 H 26 H 23 Blood Pressure 129/84 H 102/83 H 99/63 Pulse Oximetry 90 L 92 L 95 Oxygen Delivery Method Oxygen Delivery Flow Rate Fraction of Inspired Oxygen 11/25/22 23:15 11/25/22 23:28 11/25/22 23:30 Temperature Pulse Rate 109 H 100 H 119 H Pulse Rate [Monitor] Respiratory Rate 25 H 19 17 Blood Pressure 83/59 L 90/66 88/58 L Pulse Oximetry 95 Oxygen Delivery Method Oxygen Delivery Flow Rate 3.5 3.5 Fraction of Inspired Oxygen 40 11/25/22 23:45 11/26/22 00:04 11/26/22 00:14 Temperature Pulse Rate 101 H 100 H 120 H Pulse Rate [Monitor] Respiratory Rate 27 H 34 H 25 H Blood Pressure 90/64 87/70 L 104/69 Pulse Oximetry 96 96 93 L Oxygen Delivery Method Oxygen Delivery Flow Rate Fraction of Inspired Oxygen 40 40 40 11/26/22 00:16 11/26/22 00:30 11/26/22 01:01 Temperature Pulse Rate 113 H 106 H 91 H Pulse Rate [Monitor] Respiratory Rate 33 H 20 20 Blood Pressure 118/69 96/68 83/60 L Pulse Oximetry 99 84 L 90 L Oxygen Delivery Method Oxygen Delivery Flow Rate Fraction of Inspired Oxygen 40 40 11/26/22 01:10 11/26/22 01:11 11/26/22 01:17 Temperature Pulse Rate 98 H 101 H 95 H Pulse Rate [Monitor] Respiratory Rate 20 20 20 Blood Pressure 66/49 L 74/48 L 107/33 L Pulse Oximetry 92 L 96 93 L Oxygen Delivery Method Oxygen Delivery Flow Rate Fraction of Inspired Oxygen 40 11/26/22 01:30 11/26/22 01:45 11/26/22 01:10 Temperature Pulse Rate 92 H 102 H Pulse Rate [Monitor] Respiratory Rate 20 20 Blood Pressure 93/60 103/57 L Pulse Oximetry 94 L 94 L 87 L Oxygen Delivery Method Oxygen Delivery Flow Rate Fraction of Inspired Oxygen 50 40 11/26/22 01:10 11/26/22 01:10 11/26/22 04:00 Temperature Pulse Rate Pulse Rate [Monitor] 79 Respiratory Rate 16 Blood Pressure Pulse Oximetry 87 L 87 L Oxygen Delivery Method BIPAP BIPAP Oxygen Delivery Flow Rate Fraction of Inspired Oxygen 40 40 11/26/22 04:00 11/26/22 01:45 11/26/22 02:00 Temperature Pulse Rate 112 H 109 H 102 H Pulse Rate [Monitor] Respiratory Rate 20 20 Blood Pressure 103/57 L 91/63 Pulse Oximetry 95 93 L Oxygen Delivery Method Oxygen Delivery Flow Rate Fraction of Inspired Oxygen 50 50 11/26/22 02:15 11/26/22 02:30 11/26/22 02:46 Temperature Pulse Rate 95 H 103 H 104 H Pulse Rate [Monitor] Respiratory Rate 20 16 20 Blood Pressure 90/61 94/64 107/73 Pulse Oximetry 95 97 96 Oxygen Delivery Method Oxygen Delivery Flow Rate Fraction of Inspired Oxygen 11/26/22 03:00 11/26/22 03:15 11/26/22 03:30 Temperature Pulse Rate 110 H 117 H 113 H Pulse Rate [Monitor] Respiratory Rate 17 20 20 Blood Pressure 110/73 113/58 L 96/74 Pulse Oximetry 99 96 96 Oxygen Delivery Method Oxygen Delivery Flow Rate Fraction of Inspired Oxygen 11/26/22 03:45 11/26/22 04:00 11/26/22 04:15 Temperature Pulse Rate 98 H 107 H 125 H Pulse Rate [Monitor] Respiratory Rate 20 20 38 H Blood Pressure 88/65 L 93/68 103/68 Pulse Oximetry 97 97 95 Oxygen Delivery Method Oxygen Delivery Flow Rate Fraction of Inspired Oxygen 11/26/22 04:30 11/26/22 04:48 11/26/22 04:50 Temperature Pulse Rate 140 H 127 H 109 H Pulse Rate [Monitor] Respiratory Rate 26 H 26 H 20 Blood Pressure 97/65 95/69 Pulse Oximetry 97 96 Oxygen Delivery Method Oxygen Delivery Flow Rate Fraction of Inspired Oxygen 11/26/22 04:50 11/26/22 05:00 11/26/22 04:13 Temperature Pulse Rate 132 H 121 H 96 H Pulse Rate [Monitor] Respiratory Rate 22 20 Blood Pressure 100/60 Pulse Oximetry 94 L 96 97 Oxygen Delivery Method Oxygen Delivery Flow Rate Fraction of Inspired Oxygen 50 11/26/22 04:13 11/26/22 05:00 11/26/22 05:16 Temperature Pulse Rate 96 H 114 H 128 H Pulse Rate [Monitor] Respiratory Rate 20 20 27 H Blood Pressure 100/60 111/63 Pulse Oximetry 97 94 L 94 L Oxygen Delivery Method BIPAP Oxygen Delivery Flow Rate Fraction of Inspired Oxygen 50 11/26/22 05:31 11/26/22 05:46 11/26/22 06:00 Temperature Pulse Rate 120 H 130 H 123 H Pulse Rate [Monitor] Respiratory Rate 17 20 19 Blood Pressure 95/60 92/59 L 98/56 L Pulse Oximetry 96 95 99 Oxygen Delivery Method Oxygen Delivery Flow Rate Fraction of Inspired Oxygen 11/26/22 06:16 11/26/22 06:31 11/26/22 06:46 Temperature Pulse Rate 119 H 157 H 123 H Pulse Rate [Monitor] Respiratory Rate 20 21 21 Blood Pressure 87/61 L 83/65 L Pulse Oximetry 98 97 93 L Oxygen Delivery Method Oxygen Delivery Flow Rate Fraction of Inspired Oxygen 11/26/22 06:52 11/26/22 07:00 11/26/22 07:16 Temperature Pulse Rate 133 H 117 H 134 H Pulse Rate [Monitor] Respiratory Rate 29 H 26 H 21 Blood Pressure 106/63 112/85 H 105/78 Pulse Oximetry 97 97 97 Oxygen Delivery Method Oxygen Delivery Flow Rate Fraction of Inspired Oxygen 11/26/22 07:16 11/26/22 07:33 11/26/22 07:34 Temperature 97.8 F Pulse Rate 115 H 113 H 115 H Pulse Rate [Monitor] Respiratory Rate 20 21 15 Blood Pressure 135/74 H Pulse Oximetry 98 97 98 Oxygen Delivery Method Oxygen Delivery Flow Rate Fraction of Inspired Oxygen 11/26/22 07:35 11/26/22 09:09 11/26/22 09:10 Temperature Pulse Rate 115 H 123 H Pulse Rate [Monitor] Respiratory Rate 20 Blood Pressure 135/74 H 123/84 H Pulse Oximetry 98 Oxygen Delivery Method Oxygen Delivery Flow Rate Fraction of Inspired Oxygen 11/26/22 08:00 11/26/22 11:02 11/26/22 11:06 Temperature Pulse Rate 123 H 128 H Pulse Rate [Monitor] Respiratory Rate 20 Blood Pressure Pulse Oximetry 100 Oxygen Delivery Method Oxygen Delivery Flow Rate Fraction of Inspired Oxygen 50 11/26/22 11:06 11/26/22 07:35 11/26/22 07:46 Temperature Pulse Rate 126 H 130 H 111 H Pulse Rate [Monitor] Respiratory Rate 20 20 21 Blood Pressure 135/74 H 123/91 H Pulse Oximetry 100 100 95 Oxygen Delivery Method BIPAP Oxygen Delivery Flow Rate Fraction of Inspired Oxygen 50 11/26/22 08:00 11/26/22 08:16 11/26/22 08:32 Temperature Pulse Rate 116 H 116 H 120 H Pulse Rate [Monitor] Respiratory Rate 20 23 20 Blood Pressure 126/82 H 106/70 Pulse Oximetry 94 L 100 99 Oxygen Delivery Method Oxygen Delivery Flow Rate Fraction of Inspired Oxygen 11/26/22 08:46 11/26/22 09:00 11/26/22 09:16 Temperature Pulse Rate 135 H 122 H 150 H Pulse Rate [Monitor] Respiratory Rate 20 22 23 Blood Pressure 116/76 123/84 H 99/80 H Pulse Oximetry 100 98 97 Oxygen Delivery Method Oxygen Delivery Flow Rate Fraction of Inspired Oxygen 11/26/22 09:32 11/26/22 09:46 11/26/22 10:00 Temperature Pulse Rate 120 H 134 H 118 H Pulse Rate [Monitor] Respiratory Rate 18 27 H 26 H Blood Pressure 136/65 H 126/98 H 138/100 H Pulse Oximetry 100 99 99 Oxygen Delivery Method Oxygen Delivery Flow Rate Fraction of Inspired Oxygen 11/26/22 10:16 11/26/22 10:31 11/26/22 10:45 Temperature Pulse Rate 106 H 118 H 110 H Pulse Rate [Monitor] Respiratory Rate 32 H 25 H 27 H Blood Pressure 111/60 96/63 86/65 L Pulse Oximetry Oxygen Delivery Method Oxygen Delivery Flow Rate Fraction of Inspired Oxygen 11/26/22 11:01 11/26/22 11:16 11/26/22 11:31 Temperature Pulse Rate 150 H 125 H 124 H Pulse Rate [Monitor] Respiratory Rate 29 H 24 23 Blood Pressure 101/68 110/76 101/68 Pulse Oximetry 99 100 98 Oxygen Delivery Method Oxygen Delivery Flow Rate Fraction of Inspired Oxygen 11/26/22 11:46 11/26/22 12:07 11/26/22 12:00 Temperature Pulse Rate 144 H 115 H Pulse Rate [Monitor] Respiratory Rate 20 Blood Pressure 105/71 105/71 Pulse Oximetry 99 Oxygen Delivery Method Oxygen Delivery Flow Rate Fraction of Inspired Oxygen 11/26/22 11:46 Temperature Pulse Rate 123 H Pulse Rate [Monitor] Respiratory Rate 15 Blood Pressure 105/71 Pulse Oximetry 95 Oxygen Delivery Method Oxygen Delivery Flow Rate Fraction of Inspired Oxygen Documenting provider has reviewed patient's vital signs: yes Common normals: no apparent distress, oriented x3 and alert HENMT Common normals: normocephalic Eye Common normals: PERRL and EOMs intact bilaterally Respiratory Common normals: normal respiratory effort and clear to auscultation bilaterally Cardio Common normals: regular rate, regular rhythm, no gallops, no murmurs and no rub GI Common normals: Normal to inspection, nondistended, normoactive bowel sounds present and non-tender Extremity General: edema (1+ bipedal edema) Progress Note: Objective Labs Labs: Short CBC 11/26/22 Range/Units 04:37 WBC 5.2 (4.0-11.0) 10^3/uL Hgb 12.5 (12.0-16.0) g/dL Hct 41.4 (36.0-48.0) % Plt Count 199 (150-450) 10^3/uL BMP 11/26/22 04:37 Sodium 140 Potassium 4.4 Chloride 98 Carbon Dioxide 36.7 H BUN 29.0 H Creatinine 1.01 Glucose 332 H Calcium 9.5 Liver Function 11/26/22 Range/Units 04:37 Total Bilirubin 0.5 (0.2-1.0) mg/dL AST 16 (15-37) U/L ALT <6 L (14-59) U/L Alkaline Phosphatase 88 (46-116) U/L Albumin 2.7 L (3.4-5.0) g/dL ABG Attestation: I have reviewed the pertinent ABG results. Progress Note: A&P Assessment and Plan (1) Acute on chronic HFrEF (heart failure with reduced ejection fraction): (2) Acute on chronic respiratory failure with hypoxia and hypercapnia: (3) COPD with exacerbation: (4) Acute hypotension: (5) Type 2 diabetes mellitus with hyperglycemia: (6) Benign essential hypertension: (7) Paroxysmal atrial fibrillation: (8) Obesity (BMI 30-39.9): Plan Patient improved and more alert. Continue BiPAP and monitor ABG. Continue antibiotics, steroids, and breathing treatments. Continue lasix for edema. Start PT/OT. Monitor labs. Wean levophed.
[2022-11-26 17:26] LABS: Glucometer 308 mg/dL (74-106)
[2022-11-26] MEDS: ATORVASTATIN CALCIUM 20 MG TABLET PO (21:24)
[2022-11-26] MEDS: TRAZODONE HCL 50 MG TABLET PO (21:24)
[2022-11-26] MEDS: METOPROLOL SUCCINATE 50 MG TAB.ER.24H PO (21:24)
[2022-11-26 21:34] LABS: Glucometer 347 mg/dL (74-106)
[2022-11-27] VITALS (24 sets, daily range): BP systolic 94–127; BP diastolic 48–83; PULSE 99–171; RESP 12–49; TEMP 36.7; O2SAT 93–100
[2022-11-27] MEDS: ALBUTEROL SULFATE 2.5 MG/3 ML VIAL NEB IH ×2 (04:15→12:01)
[2022-11-27 04:52] LABS: Hematocrit 39.3 % (36.0-48.0); Hemoglobin 12.3 g/dL (12.0-16.0); Immature Granulocytes Abs Auto 0.03 10^3/uL (0.00-0.03); Immature Granulocytes Pct Auto 0.5 % (0.0-0.5); Lymphocytes Absolute Auto 0.6 10^3/uL (1.2-3.8); Lymphocytes Percent Auto 10.3 % (20.5-60.0); Mean Corpuscular HGB Conc 31.3 g/dL (29.9-35.2); Mean Corpuscular Hemoglobin 26.6 pg (26.7-34.0); Mean Corpuscular Volume 85.1 fL (81.0-99.0); Mean Platelet Volume 9.9 fL (9.5-13.5); Monocytes Absolute Auto 0.3 10^3/uL (0.3-0.8); Monocytes Percent Auto 5.3 % (1.7-12.0); Neutrophils Absolute Auto 4.6 10^3/uL (1.4-6.5); Neutrophils Percent Auto 83.9 % (43.0-75.0); Platelet Count 189 10^3/uL (150-450); Red Blood Count 4.62 10^6/uL (4.20-5.40); Red Cell Distribution Width 15.4 % (11.0-15.0); White Blood Count 5.5 10^3/uL (4.0-11.0)
[2022-11-27 05:13] LABS: Alanine Aminotransferase 12 U/L (14-59); Albumin Globulin Ratio 0.7; Albumin Level 2.8 g/dL (3.4-5.0); Alkaline Phosphatase 76 U/L (46-116); Anion Gap 6.3; Aspartate Amino Transferase 11 U/L (15-37); BUN Creatinine Ratio 43.5; Bilirubin Total 0.4 mg/dL (0.2-1.0); Calcium 9.6 mg/dL (8.5-10.1); Carbon Dioxide 39.7 mmol/L (21.0-32.0); Chloride 94 mmol/L (98-107); Estimated GFR (African America >60 (>=60); Estimated GFR (Non-African Ame 51 (>=60); Globulin 4.1 g/dL; Glucose 323 mg/dL (74-106); Sodium 136 mmol/L (136-145); Total Protein 6.9 g/dL (6.4-8.2)
[2022-11-27] MEDS: METHYLPREDNISOLONE SOD SUCC PF 125 MG/2 ML VIAL 60 MG IVP ×2 (05:35→11:48)
[2022-11-27] MEDS: ACETAMINOPHEN 500 MG TABLET 1000 MG PO (05:36)
[2022-11-27 07:27] LABS: ABG PCO2 46.7 mmHg (35.0-45.0); Allen Test POSITIVE (POSITIVE); Base Excess ABG 13.9 mmol/L (-2.0-2.0); Oxygen Saturation ABG 97.3 %; PO2 ABG 80.1 mmHg (80.0-100.0)
[2022-11-27 07:28] LABS: BIPAP Pressure 40; O2 Mode BIPAP; Puncture Site RR
[2022-11-27 07:31] LABS: pH ABG 7.507 (7.350-7.450)
[2022-11-27] MEDS: INSULIN ASPART 300 UNIT/3 ML PEN SUBQ ×2 (09:15→11:47)
[2022-11-27] MEDS: SPIRONOLACTONE 25 MG TABLET 50 MG PO (09:16)
[2022-11-27] MEDS: DIGOXIN 125 MCG TABLET PO (09:16)
[2022-11-27] MEDS: CANAGLIFLOZIN 100 MG TABLET 300 MG PO (09:16)
[2022-11-27] MEDS: POTASSIUM CHLORIDE 10 MEQ ER TABLET 20 MEQ PO (09:16)
[2022-11-27] MEDS: SACUBITRIL/VALSARTAN 1 EACH TABLET 2 TAB PO (09:16)
[2022-11-27] MEDS: APIXABAN 5 MG TABLET PO (09:17)
[2022-11-27] MEDS: METOPROLOL SUCCINATE 100 MG TAB.ER.24H PO (09:17)
[2022-11-27] MEDS: FUROSEMIDE 40 MG/4 ML VIAL IVP (09:27)
--- NOTE | 2022-11-27 10:06 | SWNOTE1 ---
Pt is from [facility], ready for dc today. SW to send updates.
--- NOTE | 2022-11-27 11:18 | SWNOTE1 ---
SANTOSH met with pt to discuss any dc needs. Pt is from [place], she has been there for 2 years. Pt does like it at [facility] and she does want to return. SANTOSH did send updates to [facility] and will set up transport once dc orders are in.
--- NOTE | 2022-11-27 11:36 | PM.DS1 ---
DS: Providers Provider Date of admission: 11/25/22 12:24 Primary care physician: MERVAT ARECHIGA Consults: 11/25/22 15:44 Occupational Therapy Eval and Treat Routine Physical Therapy Eval and Treat Routine DS: Diagnosis Discharge Diagnosis (1) Acute on chronic HFrEF (heart failure with reduced ejection fraction): (2) Acute on chronic respiratory failure with hypoxia and hypercapnia: (3) COPD with exacerbation: (4) Acute hypotension: (5) Type 2 diabetes mellitus with hyperglycemia: (6) Benign essential hypertension: (7) Paroxysmal atrial fibrillation: (8) Obesity (BMI 30-39.9): Plan Primary diagnosis: Acute on chronic HFrEF Secondary diagnosis: 1. Acute on chronic hypercapnic and hypoxic respiratory failure 2. COPD exacerbation 3. Acute hyponatension 4. DM2 with hyperglycemia 5. HTN 6. Paroxysmal afib 7. Obesity DS: Summary Hospital Course Hospital Course: Reason for admission: See H&P for details. 67 y/o female with a history of COPD and CHF presents with worsening SOB.? C/o increased symptoms over the past few days.? Severe SOB and chest tightness.? Increased sedation and sleeping more.? Frequent cough and sputum.? To ER and 88% on room air.? Placed on 5 LPM.? ABG showed CO2 114 and placed on BiPAP.? Chest x-ray with fluid overload and given IV lasix.? Given levaquin and steroids.? BNP elevated.? BP low and started levophed.? Admitted to ICU for treatment. Continued levophed for hypotension. Remained on BiPAP for hypercapnea. Started IV lasix and solu-medrol. Resumed home medication. Patient slowly improved. ABG showed improved CO2 and more alert. Edema improved. BP improved and able to wean off levophed. Able to remove BiPAP and place on NC. Alert and felt well. No SOB and back to baseline. Transferred back to SNF in stable condition. Will take medrol dose pack. Resume home medication as directed. Time Spent with Patient Time attestation: Total time spent providing and/or coordinating discharge services: Exam Constitutional Vital Signs - 24 hr 11/26/22 11:46 11/26/22 12:07 11/26/22 12:00 Temperature Pulse Rate 144 H 115 H Respiratory Rate 20 Blood Pressure 105/71 105/71 Pulse Oximetry 99 Oxygen Delivery Method Oxygen Delivery Flow Rate Fraction of Inspired Oxygen 11/26/22 11:46 11/26/22 15:32 11/26/22 11:46 Temperature Pulse Rate 123 H 140 H 139 H Respiratory Rate 15 28 H Blood Pressure 105/71 105/71 Pulse Oximetry 95 96 Oxygen Delivery Method Oxygen Delivery Flow Rate Fraction of Inspired Oxygen 11/26/22 14:26 11/26/22 14:30 11/26/22 14:45 Temperature Pulse Rate 135 H 134 H 119 H Respiratory Rate 26 H 46 H 26 H Blood Pressure 106/68 122/62 H 103/84 H Pulse Oximetry Oxygen Delivery Method Oxygen Delivery Flow Rate Fraction of Inspired Oxygen 11/26/22 15:00 11/26/22 15:15 11/26/22 15:31 Temperature Pulse Rate 114 H 160 H 116 H Respiratory Rate 24 30 H 18 Blood Pressure 109/66 108/67 97/76 Pulse Oximetry 94 L 97 Oxygen Delivery Method Oxygen Delivery Flow Rate Fraction of Inspired Oxygen 11/26/22 15:37 11/26/22 15:45 11/26/22 16:01 Temperature Pulse Rate 114 H 117 H 141 H Respiratory Rate 36 H 23 10 L Blood Pressure 110/87 H 106/77 127/67 H Pulse Oximetry 97 97 96 Oxygen Delivery Method Oxygen Delivery Flow Rate Fraction of Inspired Oxygen 11/26/22 16:16 11/26/22 16:00 11/26/22 20:00 Temperature Pulse Rate 123 H 118 H 82 Respiratory Rate 25 H Blood Pressure 92/70 Pulse Oximetry 95 Oxygen Delivery Method Oxygen Delivery Flow Rate Fraction of Inspired Oxygen 11/26/22 20:06 11/26/22 20:11 11/26/22 16:16 Temperature Pulse Rate 136 H 135 H Respiratory Rate 24 Blood Pressure 92/70 Pulse Oximetry 97 94 L Oxygen Delivery Method Nasal Cannula Oxygen Delivery Flow Rate 4 Fraction of Inspired Oxygen 11/26/22 16:30 11/26/22 16:46 11/26/22 17:01 Temperature Pulse Rate 127 H 126 H 125 H Respiratory Rate 25 H 23 25 H Blood Pressure 124/58 H 101/58 L 96/59 L Pulse Oximetry 97 95 95 Oxygen Delivery Method Oxygen Delivery Flow Rate Fraction of Inspired Oxygen 11/26/22 17:15 11/26/22 17:31 11/26/22 17:45 Temperature Pulse Rate 138 H 150 H 144 H Respiratory Rate 21 29 H 27 H Blood Pressure 98/66 108/93 H 106/60 Pulse Oximetry 97 Oxygen Delivery Method Oxygen Delivery Flow Rate Fraction of Inspired Oxygen 11/26/22 18:00 11/26/22 18:16 11/26/22 18:30 Temperature Pulse Rate 143 H 146 H 129 H Respiratory Rate 25 H 41 H 15 Blood Pressure 111/79 102/66 114/81 H Pulse Oximetry 95 95 84 L Oxygen Delivery Method Oxygen Delivery Flow Rate Fraction of Inspired Oxygen 11/26/22 18:47 11/26/22 19:01 11/26/22 19:15 Temperature Pulse Rate 162 H 123 H 129 H Respiratory Rate 28 H 26 H 21 Blood Pressure 95/67 99/55 L Pulse Oximetry 76 L 95 95 Oxygen Delivery Method Oxygen Delivery Flow Rate 4 4 4 Fraction of Inspired Oxygen 11/26/22 19:30 11/26/22 19:46 11/26/22 20:00 Temperature Pulse Rate 126 H 138 H 116 H Respiratory Rate 27 H 26 H 25 H Blood Pressure 99/67 109/61 98/79 Pulse Oximetry 94 L 96 96 Oxygen Delivery Method Oxygen Delivery Flow Rate 4 4 4 Fraction of Inspired Oxygen 11/26/22 20:15 11/26/22 20:31 11/26/22 20:31 Temperature Pulse Rate 124 H 121 H 117 H Respiratory Rate 29 H 28 H 28 H Blood Pressure 96/73 131/67 H 131/67 H Pulse Oximetry 96 94 L 94 L Oxygen Delivery Method Oxygen Delivery Flow Rate 4 4 Fraction of Inspired Oxygen 11/26/22 20:46 11/26/22 21:01 11/26/22 21:16 Temperature Pulse Rate 130 H 119 H 136 H Respiratory Rate 23 19 23 Blood Pressure 109/72 108/77 134/62 H Pulse Oximetry 96 95 89 L Oxygen Delivery Method Oxygen Delivery Flow Rate Fraction of Inspired Oxygen 11/26/22 21:31 11/26/22 21:45 11/26/22 22:01 Temperature Pulse Rate 121 H 124 H 116 H Respiratory Rate 26 H 25 H 27 H Blood Pressure 93/66 115/69 118/60 Pulse Oximetry 92 L 91 L 93 L Oxygen Delivery Method Oxygen Delivery Flow Rate Fraction of Inspired Oxygen 11/26/22 22:15 11/26/22 22:31 11/26/22 22:46 Temperature Pulse Rate 130 H 126 H 124 H Respiratory Rate 26 H 15 14 Blood Pressure 131/71 H 138/68 H 100/69 Pulse Oximetry 96 96 92 L Oxygen Delivery Method Oxygen Delivery Flow Rate Fraction of Inspired Oxygen 11/26/22 23:02 11/26/22 23:16 11/26/22 23:31 Temperature Pulse Rate 123 H 134 H 124 H Respiratory Rate 21 27 H 26 H Blood Pressure 127/73 H 120/72 H 130/76 H Pulse Oximetry 96 95 93 L Oxygen Delivery Method Oxygen Delivery Flow Rate Fraction of Inspired Oxygen 11/26/22 23:31 11/26/22 23:46 11/27/22 00:03 Temperature Pulse Rate 155 H 127 H 124 H Respiratory Rate 24 21 Blood Pressure 130/76 H 111/49 L Pulse Oximetry 91 L 94 L 96 Oxygen Delivery Method Oxygen Delivery Flow Rate 4 4 Fraction of Inspired Oxygen 40 11/27/22 00:07 11/26/22 23:46 11/27/22 00:01 Temperature Pulse Rate 124 H 138 H 104 H Respiratory Rate 24 24 Blood Pressure 111/49 L 103/83 H Pulse Oximetry 94 L 93 L Oxygen Delivery Method Oxygen Delivery Flow Rate 4 Fraction of Inspired Oxygen 11/27/22 01:14 11/27/22 00:01 11/27/22 01:01 Temperature Pulse Rate 142 H 136 H 122 H Respiratory Rate 24 25 H Blood Pressure 103/83 H 94/68 Pulse Oximetry 98 98 Oxygen Delivery Method Oxygen Delivery Flow Rate 4 Fraction of Inspired Oxygen 11/27/22 01:01 11/27/22 01:01 11/27/22 02:01 Temperature Pulse Rate 153 H 122 H 140 H Respiratory Rate 17 19 37 H Blood Pressure 94/68 94/68 127/60 H Pulse Oximetry 98 97 98 Oxygen Delivery Method Oxygen Delivery Flow Rate 4 4 Fraction of Inspired Oxygen 11/27/22 03:25 11/27/22 02:01 11/27/22 03:01 Temperature Pulse Rate 111 H 99 H Respiratory Rate 18 42 H Blood Pressure 127/60 H 111/78 Pulse Oximetry 96 99 97 Oxygen Delivery Method BIPAP Oxygen Delivery Flow Rate Fraction of Inspired Oxygen 11/27/22 04:15 11/27/22 04:16 11/27/22 04:16 Temperature Pulse Rate 119 H 119 H 127 H Respiratory Rate 20 Blood Pressure Pulse Oximetry 97 97 Oxygen Delivery Method Oxygen Delivery Flow Rate Fraction of Inspired Oxygen 40 40 11/27/22 05:03 11/27/22 03:01 11/27/22 04:01 Temperature Pulse Rate 124 H 131 H 129 H Respiratory Rate 27 H 21 Blood Pressure 111/78 126/48 H Pulse Oximetry 95 99 Oxygen Delivery Method Oxygen Delivery Flow Rate Fraction of Inspired Oxygen 11/27/22 05:02 11/27/22 05:10 11/27/22 05:20 Temperature Pulse Rate 151 H 128 H 151 H Respiratory Rate 16 49 H 17 Blood Pressure Pulse Oximetry 99 Oxygen Delivery Method Oxygen Delivery Flow Rate Fraction of Inspired Oxygen 11/27/22 05:30 11/27/22 05:40 11/27/22 05:50 Temperature Pulse Rate 136 H 139 H 171 H Respiratory Rate 18 16 13 Blood Pressure Pulse Oximetry 98 97 99 Oxygen Delivery Method Oxygen Delivery Flow Rate Fraction of Inspired Oxygen 11/27/22 06:00 11/27/22 06:01 11/27/22 06:01 Temperature Pulse Rate 125 H 167 H 164 H Respiratory Rate 22 12 19 Blood Pressure 97/70 Pulse Oximetry 100 100 100 Oxygen Delivery Method Oxygen Delivery Flow Rate Fraction of Inspired Oxygen 11/27/22 06:01 11/27/22 09:23 11/27/22 09:00 Temperature 98.0 F Pulse Rate 131 H 127 H 124 H Respiratory Rate 23 Blood Pressure 97/70 108/59 L Pulse Oximetry 99 98 Oxygen Delivery Method Oxygen Delivery Flow Rate 4 Fraction of Inspired Oxygen Documenting provider has reviewed patient's vital signs: yes Common normals: no apparent distress, oriented x3 and alert HENMT Common normals: normocephalic Eye Common normals: PERRL and EOMs intact bilaterally Respiratory Common normals: normal respiratory effort and clear to auscultation bilaterally Cardio Common normals: regular rate, regular rhythm, no gallops, no murmurs and no rub GI Common normals: Normal to inspection, nondistended, normoactive bowel sounds present and non-tender Extremity General: no edema DS: Data Data Completed and Pending Labs on day of discharge: Labs from last 24 hours 11/27/22 11/27/22 11/26/22 07:10 04:03 21:23 WBC 5.5 RBC 4.62 Hgb 12.3 Hct 39.3 MCV 85.1 MCH 26.6 L MCHC 31.3 RDW 15.4 H Plt Count 189 MPV 9.9 Neut % (Auto) 83.9 H Lymph % (Auto) 10.3 L [place] % (Auto) 5.3 Eos % (Auto) 0.0 L Baso % (Auto) 0.0 L Neut # (Auto) 4.6 Lymph # (Auto) 0.6 L [place] # (Auto) 0.3 Eos # (Auto) 0.0 Baso # (Auto) 0.0 Abs Immat Gran (auto) 0.03 Imm/Tot Granulo (auto) 0.5 Puncture Site Rr ABG pH 7.507 H* ABG pCO2 46.7 H ABG pO2 80.1 ABG HCO3 37.0 H ABG O2 Saturation 97.3 ABG Base Excess 13.9 H Mariano Test Positive BiPAP 40 Sodium 136 Potassium 4.0 Chloride 94 L Carbon Dioxide 39.7 H Anion Gap 6.3 BUN 47.0 H Creatinine 1.08 H Est GFR ( Amer) >60 Est GFR (Non-Af Amer) 51 L BUN/Creatinine Ratio 43.5 Glucose 323 H Calcium 9.6 Total Bilirubin 0.4 AST 11 L ALT 12 L Alkaline Phosphatase 76 Total Protein 6.9 Albumin 2.8 L Globulin 4.1 Albumin/Globulin Ratio 0.7 POC Glucose 347 H 11/26/22 11/26/22 17:24 12:06 WBC RBC Hgb Hct MCV MCH MCHC RDW Plt Count MPV Neut % (Auto) Lymph % (Auto) Nicollet % (Auto) Eos % (Auto) Baso % (Auto) Neut # (Auto) Lymph # (Auto) [place] # (Auto) Eos # (Auto) Baso # (Auto) Abs Immat Gran (auto) Imm/Tot Granulo (auto) Puncture Site ABG pH ABG pCO2 ABG pO2 ABG HCO3 ABG O2 Saturation ABG Base Excess Mariano Test BiPAP Sodium Potassium Chloride Carbon Dioxide Anion Gap BUN Creatinine Est GFR ( Amer) Est GFR (Non-Af Amer) BUN/Creatinine Ratio Glucose Calcium Total Bilirubin AST ALT Alkaline Phosphatase Total Protein Albumin Globulin Albumin/Globulin Ratio POC Glucose 308 H 330 H Preliminary micro results at discharge 11/25/22 10:01 - Preliminary Blood NO GROWTH AT 36-48 HOURS. FINAL TO FOLLOW. 11/25/22 10:01 Blood Culture Result 1 - Preliminary Blood NO GROWTH AT 36-48 HOURS. FINAL TO FOLLOW. Discharge Plan Discharge Discharge Medications: New methylprednisolone [Methylpred DP] 4 mg tablets,dose pack 4 mg PO DAILY Qty: 21 0RF Rx Instructions: as directed Continued furosemide 40 mg tablet 40 mg PO .QD atorvastatin 20 mg tablet 20 mg PO .QHS ipratropium-albuterol 0.5 mg-3 mg(2.5 mg base)/3 mL solution for nebulization 3 ml INHALATION Q4H PRN (Reason: shortness of breath or wheezing) trazodone 50 mg tablet 50 mg PO .QHS metoprolol succinate 50 mg tablet extended release 24 hr 50 mg PO BEDTIME ondansetron HCl 4 mg tablet 4 mg PO BID PRN (Reason: nausea and vomiting) metoprolol succinate 100 mg tablet extended release 24 hr 100 mg PO .QD triamcinolone acetonide 0.1 % cream 1 applic TOPICAL .QHS PRN (Reason: TOP) Rx Instructions: APPLY TO FEET potassium chloride 20 mEq tablet,ER particles/crystals 20 meq PO .QD fluticasone propion-salmeterol [Advair Diskus] 500-50 mcg/dose blister with device 1 inh INHALATION BID digoxin 125 mcg (0.125 mg) tablet 0.125 mg PO .QD gabapentin 100 mg capsule 100 mg PO .HS ipratropium bromide 21 mcg (0.03 %) spray,non-aerosol 2 spray INTRANASAL TID PRN (Reason: allergy symptoms) spironolactone 50 mg tablet 50 mg PO .QD insulin aspart U-100 [Novolog FlexPen U-100 Insulin] 100 unit/mL (3 mL) insulin pen 10 unit SUBCUT BID Eliquis 5 mg tablet 5 mg PO BID Jardiance 25 mg tablet 25 mg PO .QD Entresto 49-51 mg tablet 1 tab PO BID Trulicity 3 mg/0.5 mL pen injector 3 mg subcut QWEEK ammonium lactate 12 % cream 1 applic topical .QHS Rx Instructions: apply to BLE topically every evening bismuth subsalicylate 525 mg/15 mL suspension 525 mg PO .q24 hours PRN (Reason: diarrhea) Patient Comments: PRN every 24 hours for diarrhea Rx Instructions: do not exceed 8 doses in a 24 hour period (DME) FreeStyle Mara 14 Day Sensor Kit See Rx Instructions .ROUTE Rx Instructions: As directed polyethylene glycol 3350 [ClearLax] 17 gram/dose powder 17 g PO DAILY PRN (Reason: constipation) loperamide [Anti-Diarrheal (loperamide)] 2 mg capsule 4 mg PO Q6H PRN (Reason: loose stool) psyllium Packet 1 packet PO DAILY Rx Instructions: mix into at least 8 oz of water or juice before administering hydrocodone-acetaminophen 5-325 mg tablet 1 tab PO Q8H PRN (Reason: pain) nystatin 100,000 unit/gram powder 1 applic topical DAILY PRN (Reason: excoriation) Saccharomyces boulardii [Daily Probiotic (S. boulardii)] 250 mg capsule 250 mg PO DAILY Rx Instructions: probiotic sennosides [Shannen-victor manuel] 8.6 mg tablet 8.6 mg PO DAILY PRN (Reason: constipation) calcium carbonate [Calcium 500] 500 mg calcium (1,250 mg) tablet,chewable 1,000 mg PO .q6 hours PRN (Reason: indigestion) acetaminophen [Tylenol] 325 mg capsule 650 mg PO Q6H PRN (Reason: pain) melatonin 5 mg tablet 5 mg PO .QHS Forms: Portal Instructions
[2022-11-27 11:53] LABS: Glucometer 360 mg/dL (74-106)
[2022-11-27] MEDS: BUDESONIDE 0.5 MG/2 ML AMPULE NEB IH (12:00)
--- NOTE | 2022-11-27 13:28 | SWNOTE1 ---
SW set up stretcher transport with [facility]. Transport will be here between 1:15-1:30. SW completed forms, packet is updated. SANTOSH let nursing, pt, [place], and pt's sister know of time.
--- NOTE | 2022-11-27 13:39 | PC.NURSE ---
Report called to nurse Brumfield at the [facility].
--- NOTE | 2022-11-27 16:04 | CM.NOTE ---
0930- Rounds made with emanuel Parisi for discharge back to [facility] today. No discharge needs identified. Dr. Chambers discussed with pt importance of wearing BIPAP. Pt verbalizes understanding.
== END 2022-11-27 13:40 | DRG 291 ==
LOC: ER 11:58 → ICU 12:25
PROVIDERS: Admitting Provider Family Medicine; Emergency Provider Emergency Medicine; PCP Internal Medicine; Visit Provider Family Medicine
DX: I11.0 Hypertensive heart disease with heart failure (principal); I50.23 Acute on chronic systolic (congestive) heart failure; J96.21 Acute and chronic respiratory failure with hypoxia; J96.22 Acute and chronic respiratory failure with hypercapnia; J44.1 Chronic obstructive pulmonary disease with (acute) exacerbation; I95.9 Hypotension, unspecified; E11.65 Type 2 diabetes mellitus with hyperglycemia; I48.0 Paroxysmal atrial fibrillation; E66.9 Obesity, unspecified; Z68.30 Body mass index [BMI] 30.0-30.9, adult; Z79.01 Long term (current) use of anticoagulants; Z79.84 Long term (current) use of oral hypoglycemic drugs; Z79.51 Long term (current) use of inhaled steroids; Z79.4 Long term (current) use of insulin; Z79.899 Other long term (current) drug therapy; Z88.1 Allergy status to other antibiotic agents; Z88.8 Allergy status to other drugs, medicaments and biological substances
CPT/HCPCS: 36415; 36600; 51702; 71045; 80048; 80053; 82805; 82948; 83605; 83880; 84484; 85025; 87040; 93005; 93306; 94640; 94660; 94761; 96365; 96366; 96368; 96375; 96376; 97165; 99285; J2930

== ENCOUNTER 2023-10-04 15:08 | Outpatient (REF) | payer MEDICARE, MEDICAID, SELFPAY ==
[2023-10-04 15:30] LABS: Basophils Absolute Auto 0.1 10^3/uL (0.0-0.1); Basophils Percent Auto 0.6 % (0.2-2.0); Eosinophils Absolute Auto 0.4 10^3/uL (0.0-0.7); Eosinophils Percent Auto 4.6 % (0.9-7.0); Hemoglobin 12.2 g/dL (12.0-16.0); Immature Granulocytes Abs Auto 0.04 10^3/uL (0.00-0.03); Immature Granulocytes Pct Auto 0.5 % (0.0-0.5); Lymphocytes Absolute Auto 1.7 10^3/uL (1.2-3.8); Lymphocytes Percent Auto 21.9 % (20.5-60.0); Mean Corpuscular HGB Conc 30.5 g/dL (29.9-35.2); Mean Corpuscular Hemoglobin 28.5 pg (26.7-34.0); Mean Corpuscular Volume 93.5 fL (81.0-99.0); Mean Platelet Volume 10.1 fL (9.5-13.5); Monocytes Absolute Auto 0.6 10^3/uL (0.3-0.8); Monocytes Percent Auto 8.1 % (1.7-12.0); Neutrophils Percent Auto 64.3 % (43.0-75.0); Platelet Count 161 10^3/uL (150-450); Red Blood Count 4.28 10^6/uL (4.20-5.40); White Blood Count 7.8 10^3/uL (4.0-11.0)
[2023-10-04 17:16] LABS: Anion Gap 7.6; BUN Creatinine Ratio 24.7; Carbon Dioxide 38.7 mmol/L (21.0-32.0); Chloride 97 mmol/L (98-107); Estimated GFR (African America >60 (>=60); Estimated GFR (Non-African Ame >60 (>=60); Glucose 230 mg/dL (74-106); Potassium 3.3 mmol/L (3.5-5.1); Sodium 140 mmol/L (136-145)
== END 2023-10-04 15:09 | disposition home or self-care (01) ==
LOC: LAB 15:08
PROVIDERS: PCP Internal Medicine; Visit Provider Family Medicine
DX: R41.82 Altered mental status, unspecified (principal)
CPT/HCPCS: 36415; 80048; 85025

== ENCOUNTER 2024-05-08 08:55 | Emergency (ER) | payer MEDICARE, MEDICAID, SELFPAY ==
[2024-05-08 08:58] VITALS: BP 106/64; PULSE 102; TEMP 36.4; O2SAT 96; BMI 40.7
--- NOTE | 2024-05-08 09:01 | ECG_ITS ---
The [facility] Test Date: 2024-05-08 Pat Name: ANDERSON IZQUIERDO Department: Room: - Gender: Female Fans Clerk: : 1955 Requested By: MERVAT ARECHIGA Order Number: [id number] Reading MD: KEVIN LINO Measurements Intervals [place] Rate: 93 P: -[id number] IN: -[id number] QRS: 84 QRSD: 76 T: 101 QT: 312 QTc: 363 Interpretive Statements 1210 Atrial fibrillation [address] depression, probably digitalis effect 9150 abnormal ECG Compared to ECG 11/25/2022 09:53:00 ST (T wave) deviation now present Possible ischemia no longer present Indeterminate axis no longer present Electronically Signed On 05-13-2024 6:51:22 EST by KEVIN LINO
--- NOTE | 2024-05-08 09:01 | XR_ITS ---
The [place] [id number] Patient Name: ANDERSON IZQUIERDO MRN: [id number] date: 1955 Sex: F Assigned Patient Location: ED.MAIN Current Patient Location: ER Accession/Order Number: [id number] Exam Date: 05/08/2024 10:00 Report Date: 05/08/2024 10:30 At the request of: BRIAN BECKWITH Procedure: XR chest 1V EXAMINATION: XR chest 1V HISTORY: sob COMPARISON: 11/26/2022 TECHNIQUE: AP portable erect FINDINGS: LUNGS: No significant pulmonary parenchymal abnormalities. Low lung volumes VASCULATURE: No increased pulmonary vasculature. PLEURA: No pneumothorax, effusion, or pleural thickening. CARDIAC: Mild stable cardiomegaly. MEDIASTINUM: No visible mass or adenopathy. BONES: No fracture or visible bone lesion. OTHER: Negative. XR/XR chest 1V IMPRESSION: No acute cardiopulmonary process Electronically authenticated by: JASON DALTON Date: 05/08/2024 10:30
--- OUTSIDE RECORDS SUMMARY | 2024-05-08 09:18 | XMS_ITS | CCD ---
Author Organization [facility] Care Team Providers [facility] Technician Name Role Phone BRYCE REID Referring Unavailable BRYCE REID Primary Care Unavailable UNKNOWN, PROVIDER Attending Unavailable UNKNOWN, PROVIDER Admitting Unavailable PROVIDER, UNKNOWN Admitting Unavailable PROVIDER, UNKNOWN Attending Unavailable REQUEST, IP PLASTICS PLATER SERVICE Consul maggi Unavailable ANDRIY LUCAS Admitting Unavailable ANDRIY LUCAS Attending Unavailable GAB CARDENAS Referring Unavailable REQUEST, IP PHYSICAL THERAPY SERVICE Consulting Unavailable REQUEST, IP OCCUPATIONAL THERAPY SERVICE Consult ing Unavailable PROVIDER, UNKNOWN Attending Unavailable ANDRIY LUCAS Admitting Unavailable GAB CARDENAS Referring Unavailable HAWK, DR CROWELL Primary Care Unavailable PAY, DR VILLA Consulting Unavailable SHAIKH Rufus COLMENARES Admitting Unavailable SHAIKH Rufus COLMENARES Attending Unavailable AMBER, DR RAMIREZ Consulting Unavailable DEVIN TORRES Consulting Unavailable KERRY CAMPOS Consulting Unavailable DARRIAN, RUDOLPH H Consulting Unavailable NETO REYNA Consulting Unavailable Brayden Tomas DO Primary Care Provider Allergies Allergy Classification Reported Allergen(s) Allergy Type Date of Onset Reaction(s) Facility (1 source) 53360,00 Drug allergy (disorder) 1 [facility] Repository (9 sources) Cephalexin; Translations: [CEPHALEXIN] Drug Allergy 1 [facility] Repository (9 sources) silver sulfADIAZINE; Translations: [SILVER SULFADIAZINE] Drug Allergy 1 [facility] Repository (1 source) Cephalexin Drug Allergy 0 [facility] Repository (1 source) Gestronol Drug Allergy 0 [facility] Repository (8 sources) Sulfamethoxazole / Trimethoprim Drug Allergy 2 [facility] Medications Current Medications Medication Drug Class(es) Dates Sig (Normalized) Sig (Original) albuterol 0.21 mg/ml inhalation solution (8 sources) beta2-Adrenergic Agonist albuterol (ACCUNEB) 0.63 mg/3 mL nebulizer solution Inhale 1 ampule by nebulization every 4 (four) hours as needed for wheezing. Active allopurinol 100 mg oral tablet (8 sources) Xanthine Oxidase Inhibitor take 1 tablet by mouth once daily allopurinoL (ZYLOPRIM) 100 mg tablet Take 100 mg by mouth daily. Active apixaban 5 mg oral tablet (8 sources) Factor Xa Inhibitor take 1 tablet by mouth twice daily apixaban (ELIQUIS) 5 mg tablet Take 5 mg by mouth 2 (two) times a day. Active atorvastatin 40 mg oral tablet (8 sources) HMG-CoA Reductase Inhibitor take 1 tablet by mouth once daily atorvastatin (LIPITOR) 40 mg tablet Take 40 mg by mouth daily. Active busPIRone hydrochloride 15 mg oral tablet (8 sources) take 1 tablet by mouth three times daily busPIRone (BUSPAR) 15 mg tablet Take 15 mg by mouth 3 (three) times a day. Active 24 hr dilTIAZem hydrochloride 360 mg extended release oral tablet (8 sources) Calcium Channel Chanell take 1 tablet by mouth once daily dilTIAZem LA (CARDIZEM LA) 360 mg 24 hr tablet Take 360 mg by mouth daily. Active docusate sodium 100 mg oral capsule (8 sources) take 1 capsule by mouth twice daily docusate sodium (COLACE) 100 mg capsule Take 100 mg by mouth 2 (two) times a day. Active empagliflozin 10 mg oral tablet (8 sources) Sodium-Glucose Cotransporter 2 Inhibitor Start: 01-08-2021 take 2.5 tablets by mouth in the morning empagliflozin (JARDIANCE) 10 mg tablet tablet Take 2.5 tablets (25 mg total) by mouth in the morning. 01/08/2021 Active fluticasone / salmeterol (8 sources) Corticosteroid, beta2-Adrenergic Agonist take 1 puff(s) by inhalation twice daily fluticasone propion-salmeteroL (ADVAIR) 250-50 mcg/dose DISKUS Inhale 1 puff 2 (two) times a day. Active take 1 puff(s) by in halation twice daily fluticasone propion-salmeteroL (ADVAIR) 250-50 mcg/dose DISKUS Inhale 1 puff 2 (two) times a day. 0 Active furosemide 40 mg oral tablet (8 sources) Loop Diuretic take 1 tablet by mouth once daily furosemide (LASIX) 40 mg tablet Take 40 mg by mouth daily. Active 3 ml insulin aspart, human 100 unt/ml pen injector (8 sources) Insulin Analog Start: 01-08-2021 inject 10 [IU] by subcutaneous injection in the morning insulin aspart U-100 (NovoLOG Flexpen U-100 Insulin) 100 unit/mL (3 mL) insulin pen Inject 10 Units under the skin in the morning and 10 Units before bedtime. 01/08/2021 Active 3 ml insulin glargine 100 unt/ml pen injector (8 sources) Insulin Analog insulin glargine (LANTUS, BASAGLAR) 100 unit/mL (3 mL) insulin pen Inject 25 Units under the skin. Active insulin glargine (LANTUS, BASAGLAR) 100 unit/mL (3 mL) insulin pen Inject 25 Units under the skin. 0 Active ipratropium bromide 0.021 mg/actuat metered dose nasal spray (8 sources) Anticholinergic Start: 01-08-2021 ipratropium (ATROVENT) 21 mcg (0.03 %) nasal spray Administer 2 sprays into each nostril. 01/08/2021 Active ammonium lactate 120 mg/ml topical cream (8 sources) ammonium lactate (AMLACTIN) 12 % cream Apply 1 application topically as needed for dry skin. LOWER LEGS BID Active 24 hr metoprolol succinate 50 mg extended release oral tablet (16 sources) beta-Adrenergic Chanell Start: 01-08-2021 take 1 tablet by mouth every twenty-four hours metoprolol succinate XL (TOPROL XL) 50 mg 24 hr tablet Take 1 tablet (50 mg total) by mouth. 01/08/2021 Active metoprolol succi millicent 100 mg capsule,sprinkle,ER 24hr daily. Active morphine sulfate 15 mg oral tablet (8 sources) Opioid Agonist Start: 01-08-2021 take 1 tablet by mouth in the morning morphine (MSIR) 15 mg tablet Take 1 tablet (15 mg total) by mouth in the morning and 1 tablet (15 mg total) before bedtime. Max Daily Amount: 30 mg. 01/08/2021 Active nitroglycerin 0.4 mg sublingual tablet (8 sources) Nitrate Vasodilator nitroglyceri n (NITROSTAT) 0.4 MG SL tablet nitroglycerin 0.[address] 1 tablet as needed by sublingual route. Active ondansetron 4 mg oral tablet (8 sources) Serotonin-3 Receptor Antagonist Start: 01-08-2021 ondansetron (ZOFRAN) 4 mg tablet Take 1 tablet (4 mg total) by mouth. 01/08/2021 Active polyethylene glycol 3350 10104 mg powder for oral solution (8 sources) Osmotic Laxative polyethylene glycol (GLYCOLAX) 17 gram packet Take 17 g by mouth daily. Active microencapsulated potassium chloride 20 meq extended release oral tablet (8 sources) potassium chloride (KLOR-CON M 20) 20 MEQ CR tablet daily. Active roflumilast 0.5 mg oral tablet (8 sources) Phosphodiesterase 4 Inhibitor take 1 tablet by mouth once daily roflumilast (DALIRESP) 500 mcg tablet Take 500 mcg by mouth daily. Active sennosides, senior care 8.6 mg oral tablet (8 sources) Start: 01-08-2021 senna (SENOKOT) 8.6 mg tablet Take 1 tablet (8.6 mg total) by mouth. 01/08/2021 Active traZODone hydrochloride 50 mg oral tablet (8 sources) Serotonin Reuptake Inhibitor Start: 01-08-2021 traZODone (DESYREL) 50 mg tablet Take 1 tablet (50 mg total) by mouth. 01/08/2021 Active Problems Active Problems Problem Classification Problem Date Documented Date Episodic/Chronic Abdominal pain (1 source) Pelvic and perineal pain; Translations: [PELVIC AND PERINEAL PAIN] Onset: 3 Episodic Acute and unspecified renal failure (1 source) Acute kidney failure, unspecified; Translations: [ACUTE KIDNEY FAILURE UNSPECIFIED] Onset: 3 Episodic Administrative/social admission (1 source) Bed confinement status; Translations: [BED CONFINEMENT STATUS] Onset: 3 Episodic Allergic reactions (1 source) Dermatitis, unspecified; Translations: [DERMATITIS UNSPECIFIED] Onset: 3 Episodic Cardiac dysrhythmias (13 sources) Unspecified atrial fibrillation; Translations: [Paroxysmal atrial fibrillation] Onset: 9 Chronic Chronic kidney disease (18 sources) Chronic kidney disease, stage 2 (mild); Translations: [Chronic kidney disease stage 2] Onset: 9 Resolved: 3 06-22-2023 Chronic Chronic obstructive pulmonary disease and bronchiectasis (11 sources) Chronic obstructive pulmonary disease, unspecified; Translations: [Chronic obstructive lung disease] Onset: 9 05-26-2022 Chronic Congestive heart failure; nonhypertensive (20 sources) Chronic systolic (congestive) heart failure; Translations: [Chronic combined systolic and diastolic heart failure] Onset: 9 06-22-2023 Chronic Diabetes mellitus with complications (13 sources) Type 2 diabetes mellitus with diabetic chronic kidney disease; Translations: [Type 2 diabetes mellitus] Onset: 2 06-22-2023 Chronic Disorders of lipid metabolism (10 sources) Hyperlipidemia, unspecified; Translations: [Hyperlipidemia] Onset: 3 07-28-2022 Chronic Essential hypertension (11 sources) Benign essential hypertension; Translations: [Essential (primary) hypertension] Onset: 9 05-26-2022 Chronic Hypertension with complications and secondary hypertension (1 source) Hypertensive heart and chronic kidney disease with heart failure and stage 1 through stage 4 chronic kidney disease, or unspecified chronic kidney disease; Translations: [HTN HRT CKD W/HF STAGE 1-4/UNS CKD] Onset: 3 Chronic Inflammation; infection of eye (except that caused by tuberculosis or sexually transmitteddisease) (2 sources) Allergic conjunctivitis of bilateral eyes; Translations: [Acute atopic conjunctivitis, bilateral] Onset: 4 05-02-2024 Episodic Mood disorders (6 sources) Single episode of major depression in full remission; Translations: [Major depressive disorder, single episode, in full remission] Onset: 4 08-31-2023 Chronic Open wounds of extremities (8 sources) Traumatic amputation, finger, multiple; Translations: [Complete traumatic metacarpophalangeal amputation of unspecified finger, initial encounter] Onset: 2 05-26-2022 Chronic Other aftercare (1 source) Other adjunct faculty for medical terminology (current) drug therapy; Translations: [OTH SENIOR LIVING CURRENT DRUG THERAPY] Onset: 3 Episodic Other aftercare (1 source) skilled nursing (current) use of insulin; Translations: [SENIOR LIVING CURRENT USE OF INSULIN] Onset: 3 Episodic Other bone disease and musculoskeletal deformities (1 source) Acquired absence of unspecified finger(s); Translations: [ACQUIRED ABSENCE UNSPEC FINGERS] Onset: 3 Episodic Other connective tissue disease (8 sources) Muscle weakness; Translations: [Muscle weakness (generalized)] 10-18-2022 Episodic Other nervous system disorders (1 source) Other chronic pain; Translations: [OTHER CHRONIC PAIN] Onset: 3 Chronic Other non-traumatic joint disorders (1 source) Pain in left hip; Translations: [PAIN IN LEFT HIP] Onset: 3 Episodic Other non-traumatic joint disorders (1 source) Pain in right hip; Translations: [PAIN IN RIGHT HIP] Onset: 3 Episodic Other non-traumatic joint disorders (1 source) Pain in left knee; Translations: [Pain in joint, lower leg] 06-27-2023 Episodic Other nutritional; endocrine; and metabolic disorders (1 source) Morbid (severe) obesity due to excess calories; Translations: [MORBID SEVERE OBES D/T EXCESS OMAR] Onset: 3 Chronic Other nutritional; endocrine; and metabolic disorders (1 source) Body mass index (BMI) 38.0-38.9, adult; Translations: [BODY MASS INDEX BMI 38.0-38.9 ADULT] Onset: 3 Chronic Other nutritional; endocrine; and metabolic disorders (9 sources) Hypocalcemia; Translations: [Hypocalcemia] Onset: 9 06-22-2023 Chronic Other nutritional; endocrine; and metabolic disorders (11 sources) Morbid obesity; Translations: [Morbid (severe) obesity due to excess calories] Onset: 8 05-26-2022 Chronic Other skin disorders (9 sources) Asteatosis cutis; Translations: [Xerosis cutis] Onset: 3 06-18-2022 Episodic Phlebitis; thrombophlebitis and thromboembolism (1 source) Personal history of other venous thrombosis and embolism; Translations: [PERS HX OTH VENOUS THROMBOSIS AND EMBO] Onset: 3 Episodic Pulmonary heart disease (1 source) Personal history of pulmonary embolism; Translations: [PERSONAL HISTORY PULMONARY EMBOLISM] Onset: 3 Episodic Residual codes; unclassified (5 sources) Sleep apnea; Translations: [Sleep apnea, unspecified] Onset: 4 10-05-2023 Chronic Respiratory failure; insufficiency; arrest (adult) (10 sources) Chronic respiratory failure with hypoxia; Translations: [Dependence on supplemental oxygen] Onset: 3 Resolved: 3 10-18-2022 Chronic Screening and history of mental health and substance abuse codes (1 source) Personal history of nicotine dependence; Translations: [PERSONAL HISTORY OF NICOTINE DEPEND] Onset: 3 Episodic Unclassified (1 source) LOW BACK PAIN, UNSPECIFIED; Translations: [LOW BACK PAIN, UNSPECIFIED] Onset: 3 Unclassified (1 source) CONTACT W/AND (SUSP) EXPOS COVID-19; Translations: [CONTACT W/AND (SUSP) EXPOS COVID-19] Onset: 3 Past or Other Problems Problem Classification Problem Date Documented Da te Episodic/Chronic Fluid and electrolyte disorders (11 sources) Hyperkalemia; Translations: [Hypokalemia] Onset: 05-26-2022 06-22-2023 Episodic Intestinal infection (16 sources) Clostridioides difficile infection; Translations: [Enterocolitis due to Clostridium difficile, not specified as recurrent] Onset: 06-18-2022 Resolved: 10-31-2022 10-31-2022 Episodic Other gastrointestinal disorders (8 sources) Diarrhea of presumed infectious origin; Translations: [Diarrhea, unspecified] Onset: 05-26-2022 Resolved: 10-31-2022 10-31-2022 Episodic Other infections; including parasitic (8 sources) Personal history of other infectious and parasitic diseases; Translations: [Personal history of other infectious and parasitic diseases] Onset: 07-03-2022 Resolved: 10-31-2022 10-31-2022 Episodic Other lower respiratory disease (9 sources) Hypoxemia; Translations: [Hypoxemia] Onset: 02-07-2019 06-22-2023 Episodic Other nervous system disorders (8 sources) Allodynia; Translations: [Other disturbances of skin sensation] Onset: 09-06-2022 09-06-2022 Episodic Other nervous system disorders (8 sources) Abnormal gait; Translations: [Unspecified abnormalities of gait and mobility] Onset: 12-22-2022 12-22-2022 Episodic Residual codes; unclassified (6 sources) Insomnia; Translations: [Insomnia, unspecified] Onset: 08-31-2023 08-31-2023 Episodic Skin and subcutaneous tissue infections (16 sources) Cellulitis of lower limb; Translations: [Cellulitis of unspecified part of limb] Onset: 05-26-2022 Resolved: 10-31-2022 10-31-2022 Episodic Spondylosis; intervertebral disc disorders; other back problems (8 sources) Chronic back pain ; Translations: [Dorsalgia, unspecified] Onset: 05-26-2022 05-26-2022 Episodic Results Test Name Value Interpretation Reference Range Facil ity CBC AUTO DIFFon 07-01-2022 BASO # 0.0 103/ul Normal 0.0-0.1 [facility] Comment on above: Performed By: #### C BC #### [facility] [address] [place] [address] Dr. Xiomara Li Basophils/100 WBC (Bld) 0.4 % Normal 0.2-2.0 [facility] Comment on above: Performed By: #### C BC #### [facility] [address] [address] [address] Xiomara Li EO # 0.3 103/ul Normal 0.0-0.7 [facility] Comment on above: Performed By: #### C BC #### [facility] [address] [address] [address] Xiomara Li Eosinophils/100 WBC (Bld) 4.1 % Normal 0.9-7.0 [facility] Comment on above: Performed By: #### C BC #### [facility] [address] [place] [address] Dr. Xiomara Li Erythrocyte distribution width (RBC) [Ratio] 15.9 % Critically high 11.0-15.0 [facility] Comment on above: Performed By: #### C BC #### [facility] [address] [place] [address] Dr. Xiomara Li Hematocrit (Bld) [Volume fraction] 38.5 % Normal 36.0-48.0 [facility] Comment on above: Performed By: #### C BC #### [facility] [address] [place] [address] Dr. Xiomara Li Hemoglobin (Bld) [Mass/Vol] 11.9 g/dL Critically low 12.0-16.0 [facility] Comment on above: Performed By: #### C BC #### [facility] [address] [place] [address] Dr. Xiomara Li IG # 0.03 10e3/ul Normal 0.00-0.03 [facility] Comment on above: Performed By: #### C BC #### [facility] [address] [place] [address] Dr. Xiomara Li IG % 0.4 % Normal 0.0-0.5 [facility] Comment on above: Performed By: #### C BC #### [facility] [address] [place] [address] Dr. Xiomara Li LYMPH # 1.7 103/ul Normal 1.2-3.8 [facility] Comment on above: Performed By: #### C BC #### [facility] [address] [place] [address] Dr. Xiomara Li Lymphocytes/100 WBC (Bld) 22.1 % Normal 20.5-60.0 [facility] Comment on above: Performed By: #### C BC #### [facility] [address] [place] [address] Dr. Xiomara Li MANUAL DIFF REQ NO Normal [facility] Comment on above: Performed By: #### C BC #### [facility] [address] [place] [address] Dr. Xiomara Li MCH (RBC) [Entitic mass] 29.2 pg Normal 26.7-34.0 [facility] Comment on above: Performed By: #### C BC #### [facility] [address] [place] [address] Dr. Xiomara Li MCHC (RBC) [Mass/Vol] 30.9 g/dL Normal 29.9-35.2 [facility] Comment on above: Performed By: #### C BC #### [facility] [address] [address] [address] Xiomara Li MCV (RBC) [Entitic vol] 94.6 fL Normal 81.0-99.0 [facility] Comment on above: Performed By: #### C BC #### [facility] [address] [address] [address] Xiomara Li MONO # 0.5 103/ul Normal 0.3-0.8 [facility] Comment on above: Performed By: #### C BC #### [facility] [address] [address] [address] Xiomara Li Monocytes/100 WBC (Bld) 7.0 % Normal 1.7-12.0 [facility] Comment on above: Performed By: #### C BC #### [facility] [address] [place] [address] Dr. Xiomara Li NEUT # 5.0 103/ul Normal 1.4-6.5 [facility] Comment on above: Performed By: #### C BC #### [facility] [address] [place] [address] Dr. Xiomara Li Neutrophils/100 WBC (Bld) 66.0 % Normal 43.0-75.0 [facility] Comment on above: Performed By: #### C BC #### [facility] [address] [place] [address] Dr. Xiomara Li Platelet mean volume (Bld) [Entitic vol] 9.8 fL Normal 9.5-13.5 [facility] Comment on above: Performed By: #### C BC #### [facility] [address] [place] [address] Dr. Xiomara Li PLT 192 103/ul Normal 150-450 [facility] Comment on above: Performed By: #### C BC #### [facility] [address] [address] [address] Xiomara Li RBC 4.07 106/ul Critically low 4.20-5.40 [facility] Comment on above: Performed By: #### C BC #### [facility] [address] [place] [address] Dr. Xiomara Li WBC 7.6 103/ul Normal 4.0-11.0 [facility] Comment on above: Performed By: #### C BC #### [facility] [address] [place] [address] Dr. Xiomara Li Covid-19 PCR (CVDTB)on SARS-CoV-2 (COVID-19) RNA PARISH+probe Ql (Unsp spec) Not detected Normal NOT DETECTED [facility] Comment on above: Result Comment: When diagnostic testing is negative, the possibility of a false negative should be considered in the context of a patient's recent exposures and the presence of clinical signs and symptoms consistent with SARS-CoV-2. This test is not yet approved or cleared by the [place] FDA. When there are no FDA-approved or cleared tests available, and other criteria are met, FDA can make tests available under an emergency access mechanism called an Emergency Use Authorization (EUA). The EUA for this test is supported by the [place] of Health and Human Service's declaration that circumstances exist to justify the emergency use of in vitro diagnostics for the detection and/or diagnosis of the virus that causes COVID-19. This EUA will remain in effect for the duration of the COVID-19 declaration justifying emergency of IVDs, unless it is terminated or revoked by the FDA (after which the test may no longer be used). Performed By: #### C VDTBH #### [facility] [address] [place] [address] Dr. Xiomara Li POINT OF CARE GLUCOSEon Glucose [Mass/Vol] 182 mg/dL Critically high 74-106 [facility] Comment on above: Performed By: #### P OCGLUC #### [facility] [address] [place] [address] Dr. Xiomara Li Glucose [Mass/Vol] 160 mg/dL Critically high 74-106 [facility] Comment on above: Performed By: #### P OCGLUC #### [facility] [address] [place] [address] Dr. Xiomara Li PROF CHEM 8 (BAS METB)on Anion gap [Moles/Vol] 10.3 mmol/L Normal [facility] Comment on above: Performed By: #### B MP ####[facility] [address] [place], [place] [address]Dr. Xiomara Li Calcium [Mass/Vol] 9.5 mg/dL Normal 8.5-10.1 [facility] Comment on above: Performed By: #### B MP ####[facility] [address] [place], [place] [address]Dr. Xiomara Li Chloride [Moles/Vol] 105 mmol/L Normal 98-107 [facility] Comment on above: Performed By: #### B MP ####[facility] [address] [place], [place] [address]Dr. Xiomara Li CO2 [Moles/Vol] 29.8 mmol/L Normal 21.0-32.0 [facility] Comment on above: Performed By: #### B MP ####[facility] [address] [place], [place] [address]Dr. Xiomara Li Creatinine [Mass/Vol] 1.07 mg/dL Critically high 0.55-1.02 [facility] Comment on above: Performed By: #### B MP ####[facility] [address] [place], [place] [address]Dr. Xiomara Li EGFR-AF PANAMANIAN >60 Normal >=60 [facility] Comment on above: Performed By: #### B MP ####[facility] [address] [place], [place] [address]Dr. Xiomara Li EGFR-NON AF PANAMANIAN 51 mL/min/1.73m2 Critically low >=60 [facility] Comment on above: Performed By: #### B MP ####[facility] [address] [place], [place] [address]Dr. Xiomara Li Glucose [Mass/Vol] 184 mg/dL Critically high 74-106 [facility] Comment on above: Performed By: #### B MP ####[facility] [address] [place], [place] [address]Dr. Xiomara Li Potassium [Moles/Vol] 5.1 mmol/L Normal 3.5-5.1 [facility] Comment on above: Performed By: #### B MP ####[facility] [address] [address]Dr. Xiomara Li Sodium [Moles/Vol] 140 mmol/L Normal 136-145 [facility] Comment on above: Performed By: #### B MP ####[facility] [address] [address]DrChristel Li Urea nitrogen [Mass/Vol] 52.0 mg/dL Critically high 7.0-18.0 [facility] Comment on above: Performed By: #### B MP ####[facility] [address] [address]Dr. Xiomara Li Urea nitrogen/Creatinin e [Mass ratio] 48.6 mg/mg Normal [facility] [facility] Comment on above: Performed By: #### B MP ####[facility] [id number] [id number] Li Anion gap [Moles/Vol] 12.0 mmol/L Normal [facility] Comment on above: Performed By: #### B MP #### [facility] [address] [address] [address] Xiomara Li Calcium [Mass/Vol] 9.5 mg/dL Normal 8.5-10.1 The [facility] Comment on above: Performed By: #### B MP #### [facility] [address] [address] [address] Xiomara Li Chloride [Moles/Vol] 105 mmol/L Normal 98-107 [facility] Comment on above: Performed By: #### B MP #### [facility] [address] [address] [address] Xiomara Li CO2 [Moles/Vol] 27.3 mmol/L Normal 21.0-32.0 [facility] Comment on above: Performed By: #### B MP #### [facility] [address] [address] [address] Xiomara Li Creatinine [Mass/Vol] 1.10 mg/dL Critically high 0.55-1.02 [facility] Comment on above: Performed By: #### B MP #### [facility] [address] [address] [address] Xiomara Li EGFR-AF PANAMANIAN 60 mL/min/1.73m2 Normal >=60 Th [facility] Comment on above: Performed By: #### B MP #### [facility] [address] [address] [address] Xiomara Li EGFR-NON AF PANAMANIAN 50 mL/min/1.73m2 Critically low >=60 [facility] Comment on above: Performed By: #### B MP #### [facility] [address] [place] [address] Dr. Xiomara Li Glucose [Mass/Vol] 189 mg/dL Critically high 74-106 T [facility] Comment on above: Performed By: #### B MP #### [facility] [address] [address] [address] Xiomara Li Potassium [Moles/Vol] 5.3 mmol/L Critically high 3.5-5.1 [facility] Comment on above: Performed By: #### B MP #### [facility] [address] [place] [address] Dr. Xiomara Li Sodium [Moles/Vol] 139 mmol/L Normal 136-145 [facility] Comment on above: Performed By: #### B MP #### [facility] [address] [address] [address] Xiomara Li Urea nitrogen [Mass/Vol] 53.0 mg/dL Critically high 7.0-18.0 [facility] Comment on above: Performed By: #### B MP #### [facility] [address] [place] [address] Dr. Xiomara Li Urea nitrogen/Creatinin e [Mass ratio] 48.2 mg/mg Normal [facility] Comment on above: Performed By: #### B MP #### [facility] [address] [place] [address] Dr. Xiomara Li CBC AUTO DIFFon 06-30-2022 BASO # 0.1 103/ul Normal 0.0-0.1 [facility] Comment on above: Performed By: #### C BC #### [facility] [address] [place] [address] Dr. Xiomara Li Basophils/100 WBC (Bld) 0.7 % Normal 0.2-2.0 [facility] Comment on above: Performed By: #### C BC #### [facility] [address] [place] [address] Dr. Xiomara Li EO # 0.4 103/ul Normal 0.0-0.7 [facility] Comment on above: Performed By: #### C BC #### [facility] [address] [place] [address] Dr. Xiomara Li Eosinophils/100 WBC (Bld) 4.0 % Normal 0.9-7.0 [facility] Comment on above: Performed By: #### C BC #### [facility] [address] [place] [address] Dr. Xiomara Li Erythrocyte distribution width (RBC) [Ratio] 15.8 % Critically high 11.0-15.0 [facility] Comment on above: Performed By: #### C BC #### [facility] [address] [place] [address] Dr. Xiomara Li Hematocrit (Bld) [Volume fraction] 43.0 % Normal 36.0-48.0 [facility] Comment on above: Performed By: #### C BC #### [facility] [address] [place] [address] Dr. Xiomara Li Hemoglobin (Bld) [Mass/Vol] 13.6 g/dL Normal 12.0-16.0 [facility] Comment on above: Performed By: #### C BC #### [facility] [address] [place] [address] Dr. Xiomara Li IG # 0.03 10e3/ul Normal 0.00-0.03 [facility] Comment on above: Performed By: #### C BC #### [facility] [address] [place] [address] Dr. Xiomara Li IG % 0.3 % Normal 0.0-0.5 [facility] Comment on above: Performed By: #### C BC #### [facility] [address] [place] [address] Dr. Xiomara Li LYMPH # 2.6 103/ul Normal 1.2-3.8 [facility] Comment on above: Performed By: #### C BC #### [facility] [address] [place] [address] Dr. Xiomara Li Lymphocytes/100 WBC (Bld) 27.1 % Normal 20.5-60.0 [facility] Comment on above: Performed By: #### C BC #### [facility] [address] [place] [address] Dr. Xiomara Li MANUAL DIFF REQ NO Normal [facility] Comment on above: Performed By: #### C BC #### [facility] [address] [place] [address] Dr. Xiomara Li MCH (RBC) [Entitic mass] 29.1 pg Normal 26.7-34.0 [facility] Comment on above: Performed By: #### C BC #### [facility] [address] [place] [address] Dr. Xiomara Li MCHC (RBC) [Mass/Vol] 31.6 g/dL Normal 29.9-35.2 [facility] Comment on above: Performed By: #### C BC #### [facility] [address] [place] [address] Dr. Xiomara Li MCV (RBC) [Entitic vol] 91.9 fL Normal 81.0-99.0 [facility] Comment on above: Performed By: #### C BC #### [facility] [address] [place] [address] Dr. Xiomara Li MONO # 0.7 103/ul Normal 0.3-0.8 [facility] Comment on above: Performed By: #### C BC #### [facility] [address] [place] [address] Dr. Xiomara Li Monocytes/100 WBC (Bld) 7.1 % Normal 1.7-12.0 [facility] Comment on above: Performed By: #### C BC #### [facility] [address] [place] [address] Dr. Xiomara Li NEUT # 5.7 103/ul Normal 1.4-6.5 [facility] Comment on above: Performed By: #### C BC #### [facility] [address] [place] [address] Dr. Xiomara Li Neutrophils/100 WBC (Bld) 60.8 % Normal 43.0-75.0 [facility] Comment on above: Performed By: #### C BC #### [facility] [address] [place] [address] Dr. Xiomara Li Platelet mean volume (Bld) [Entitic vol] 9.9 fL Normal 9.5-13.5 [facility] Comment on above: Performed By: #### C BC #### [facility] [address] [place] [address] Dr. Xiomara Li PLT 258 103/ul Normal 150-450 [facility] Comment on above: Performed By: #### C BC #### [facility] [address] [place] [address] Dr. Xiomara Li RBC 4.68 106/ul Normal 4.20-5.40 [facility] Comment on above: Performed By: #### C BC #### [facility] [address] [place] [address] Dr. Xiomara Li WBC 9.4 103/ul Normal 4.0-11.0 [facility] Comment on above: Performed By: #### C BC #### [facility] [address] [place] [address] Dr. Xiomara Li CPKon 06-30-2022 CK [Catalytic activity/Vol] 53 U/L Normal 26-192 [facility] Comment on above: Performed By: #### C K #### [facility] [address] [place] [address] LSPINE WO CONon 3 CT LSPINE WO CON EXAM: CT L-SPINE WO CON HISTORY: MUSCLE WEAKNESS (GENERALIZED), right lower extremity radiculopathy. COMPARISON: 06/26/2019. TECHNIQUE: Unenhanced helical acquisition obtained through the lumbar spine with axial, coronal and sagittal MPR reconstructions. FINDINGS: Diffuse demineralization. Chronic mild compression deformity of the superior T11 vertebral body endplate. Chronic moderate compression deformity of the inferior T12 vertebral body endplate. Moderate compression deformity of L2 vertebral body which has mildly progressed, with approximately 40% height loss. Chronic mild compression deformity of the inferior L3 vertebral body endplate, unchanged. Severe multilevel bilateral facet arthropathy is present throughout the lumbar spine. Associated grade 1 degenerative anterolisthesis of L4 on L5, unchanged. There is evidence of multilevel spinal canal stenosis throughout the lumbar spine with AP diameter of the thecal sac at the L3-L4 level measuring approximately 9 mm and at L4-L5 level measuring approximately 7 mm. Moderate right L2-L3 and severe left L5-S1 foraminal narrowing. Moderate-severe diffuse atherosclerotic disease is noted. Stable 3.8 cm benign left adrenal adenoma is present. Stable left renal cysts which are not optimally assessed. IMPRESSION: 1. No evidence of acute fracture. Multilevel chronic compression deformities involving visualized lower thoracic and lumbar vertebral bodies with interval mild progression of moderate compression fracture deformity of L2 vertebral body. 2. Multilevel spinal canal stenosis. Moderate right L2-L3 and severe left L5-S1 foraminal narrowing. 3. Moderate-severe diffuse atherosclerotic disease. Benign stable left adrenal adenoma. Renal cysts which are not optimally assessed on this examination. Electronically authenticated by: KERRY CAMPOS Date: 2022-06-30 20:[address] [facility] CT PELVIS WO CONon 3 CT PELVIS WO CON EXAMINATION: CT PELVIS WO CON HISTORY: MUSCLE WEAKNESS (GENERALIZED) right leg pain COMPARISON: 04/05/2020, 06/26/2019 TECHNIQUE: Multiplanar CT images of the pelvis without contrast Dose reduction techniques were achieved by using automated exposure control and/or adjustment of mA and/or kV according to patient size and/or use of iterative reconstruction technique. FINDINGS: No CT evidence of acute osseous abnormality of the pelvis. Osteopenia. Severe osteoarthritis of bilateral hips. Enthesopathic change at bilateral trochanters. Moderate degenerative change of bilateral SI joints. Refer to CT L-spine dictation for evaluation of the lumbar spine. No acute intrapelvic abnormality. No presacral edema. Severe atherosclerosis. Colonic diverticulosis. IMPRESSION: No CT evidence of acute osseous abnormality of the pelvis. Osteopenia. Severe osteoarthritis of bilateral hips. Electronically authenticated by: DEVIN FELIPEZ Date: 2022-06-30 19:49 Normal [facility] PROF CHEM 8 (BAS METB)on Anion gap [Moles/Vol] 16.4 mmol/L Normal [facility] Comment on above: Performed By: #### B MP #### [facility] [address] [address] [address] Xiomara Li Calcium [Mass/Vol] 10.3 mg/dL Critically high 8.5-10.1 [facility] Comment on above: Performed By: #### B MP #### [facility] [address] [address] [address] Xiomara Li Chloride [Moles/Vol] 99 mmol/L Normal 98-107 [facility] Comment on above: Performed By: #### B MP #### [facility] [address] [address] [address] Xiomara Li CO2 [Moles/Vol] 26.7 mmol/L Normal 21.0-32.0 [facility] Comment on above: Performed By: #### B MP #### [facility] [address] [address] [address] Xiomara Li Creatinine [Mass/Vol] 1.27 mg/dL Critically high 0.55-1.02 [facility] Comment on above: Performed By: #### B MP #### [facility] [address] [address] [address] Xiomara Li EGFR-AF PANAMANIAN 51 mL/min/1.73m2 Critically low >=60 [facility] Comment on above: Performed By: #### B MP #### [facility] [address] [address] [address] Xiomara Li EGFR-NON AF PANAMANIAN 42 mL/min/1.73m2 Critically low >=60 [facility] Comment on above: Performed By: #### B MP #### [facility] [address] [address] [address] Xiomara Li Glucose [Mass/Vol] 215 mg/dL Critically high 74-106 T [facility] Comment on above: Performed By: #### B MP #### [facility] [address] [place] [address] Dr. Xiomara Li Potassium [Moles/Vol] 6.0 mmol/L Critically high 3.5-5.1 [facility] Comment on above: Performed By: #### B MP #### [facility] [address] [place] [address] Dr. Xiomara Li Sodium [Moles/Vol] 135 mmol/L Critically low 136-145 Th [facility] Comment on above: Performed By: #### B MP #### [facility] [address] [place] [address] Dr. Xiomara Li Urea nitrogen [Mass/Vol] 58.0 mg/dL Critically high 7.0-18.0 [facility] Comment on above: Performed By: #### B MP #### [facility] [address] [place] [address] Dr. Xiomara Li Urea nitrogen/Creatinin e [Mass ratio] 45.7 mg/mg Normal [facility] Comment on above: Performed By: #### B MP #### [facility] [address] [place] [address] Dr. Xiomara Li BASIC METABOLIC PANELon 12-26 Anion gap [Moles/Vol] 15 mmol/L High 5-13 [facility] Comment on above: Performed By: #### C R BGA #### [facility] [address] [place] [address], Calcium [Mass/Vol] 8.7 mg/dL Normal 8.4-10.4 [facility] Comment on above: Performed By: #### C R BGA #### [facility] [address] [place] [address], Chloride [Moles/Vol] 95 mmol/L Low 97-111 [facility] Comment on above: Performed By: #### C R BGA #### [facility] [address] [place] [address], CO2 [Moles/Vol] 37 mmol/L High 21-30 [facility] Comment on above: Performed By: #### C R BGA #### [facility] [address] [place] [address], Creatinine [Mass/Vol] 0.69 mg/dL Normal 0.50-1.10 [facility] Comment on above: Performed By: #### C R BGA #### [facility] [address] [place] [address], ESTIMATED GFR (CKD-EPI) 93 mL/min/1.73sqm Normal >=60 [facility] Comment on above: Performed By: #### C R BGA #### [facility] [address] [place] [address], Glucose [Mass/Vol] 113 mg/dL Normal 80-116 [facility] Comment on above: Performed By: #### C R BGA #### [facility] [address] [place] [address], Potassium [Moles/Vol] 3.2 mmol/L Low 3.3-5.3 [facility] Comment on above: Performed By: #### C R BGA #### [facility] [address] [place] [address], Sodium [Moles/Vol] 144 mmol/L Normal 135-148 [facility] Comment on above: Performed By: #### C R BGA #### [facility] [address] [place] [address], Urea nitrogen [Mass/Vol] 10 mg/dL Normal 8-22 [facility] Comment on above: Performed By: #### C R BGA #### [facility] [address] [place] [address], CBC WITH DIFFERENTIALon 12-26 Basophils (Bld) [#/Vol] 0.06 10*3/uL Normal 0.00-0.20 [facility] Comment on above: Performed By: #### 8 2948 #### [facility] [address] [place] [address], Basophils/100 WBC (Bld) 0.9 % Normal <=1.9 [facility] Comment on above: Performed By: #### 8 2948 #### [facility] [address] [place], [address] Eosinophils (Bld) [#/Vol] 0.54 10*3/uL Normal 0.00-0.70 [facility] Comment on above: Performed By: #### 8 2948 #### [facility] [address] [place], [address] Eosinophils/100 WBC (Bld) 8.6 % High 0.1-4.0 [facility] Comment on above: Performed By: #### 8 2948 #### [facility] [address] [place], [address] Erythrocyte distribution width (RBC) [Ratio] 18.7 % High 11.5-14.5 [facility] Comment on above: Performed By: #### 8 2948 #### [facility] [address] [place], [address] Hematocrit (Bld) [Volume fraction] 34.0 % Low 36.0-46.0 [facility] Comment on above: Performed By: #### 8 2948 #### [facility] [address] [place], [address] Hemoglobin (Bld) [Mass/Vol] 10.5 g/dL Low 12.0-15.0 [facility] Comment on above: Performed By: #### 8 2948 #### [facility] [address] [place], [address] Lymphocytes (Bld) [#/Vol] 1.29 10*3/uL Normal 1.00-4.80 [facility] Comment on above: Performed By: #### 8 2948 #### [facility] [address] [place], [address] Lymphocytes/100 WBC (Bld) 20.4 % Low 24.0-44.0 [facility] Comment on above: Performed By: #### 8 2948 #### [facility] [address] [place], [address] MCH (RBC) [Entitic mass] 23.3 pg Low 26.0-34.0 [facility] Comment on above: Performed By: #### 8 2948 #### [facility] [address] [place], [address] MCHC (RBC) [Mass/Vol] 30.8 g/dL Low 32.0-35.9 [facility] Comment on above: Performed By: #### 8 2948 #### [facility] [address] [place], [address] MCV (RBC) [Entitic vol] 76 fL Low 80-100 [facility] Comment on above: Performed By: #### 8 2948 #### [facility] [address] [place], [address] MONOCYTE DISTRIBUTION WIDTH Normal [facility] Comment on above: Performed By: #### 8 2948 #### [facility] [address] [place], [address] Monocytes (Bld) [#/Vol] 0.56 10*3/uL Normal 0.20-1.00 [facility] Comment on above: Performed By: #### 8 2948 #### [facility] [address] [place], [address] Monocytes/100 WBC (Bld) 8.8 % Normal 2.0-11.0 [facility] Comment on above: Performed By: #### 8 2948 #### [facility] [address] [place], [address] Neutrophils (Bld) [#/Vol] 3.89 10*3/uL Normal 1.50-8.00 [facility] Comment on above: Performed By: #### 8 2948 #### [facility] [address] [place], [address] Neutrophils/100 WBC (Bld) 61.4 % Normal 31.0-76.0 [facility] Comment on above: Performed By: #### 8 2948 #### [facility] [address] [place], [address] Platelet mean volume (Bld) [Entitic vol] 7.4 fL Low 7.5-11.2 [facility] Comment on above: Performed By: #### 8 2948 #### [facility] [address] [place], [address] Platelets (Bld) [#/Vol] 206 10*3/uL Normal 150-400 [facility] Comment on above: Performed By: #### 8 2948 #### [facility] [address] [place], [address] RBC (Bld) [#/Vol] 4.50 10*6/uL Normal 4.00-5.20 [facility] Comment on above: Performed By: #### 8 2948 #### [facility] [address] [place], [address] WBC (Bld) [#/Vol] 6.3 10*3/uL Normal 4.5-11.5 [facility] Comment on above: Performed By: #### 8 2948 #### [facility] [address] [place], [address] Care Plan Noteon 01-08-2021 Transfer And Line Up Worker Authentication Interface Message Text Problem: Routine Care: Goal: Patient care will be managed and maintained throughout hospital stay per unit specific routine care procedure Outcome: Completed Problem: Alteration in Tissue Perfusion: Cardiac: Goal: Promote adequate perfusion and limit complications resulting from myocardial oxygen supply, demand and imbalance Outcome: Completed Problem: Alteration in Respiratory Status: Goal: Achieve Optimal Respiratory Status with Minimal Ventilatory/Oxygen Support Outcome: Completed Problem: Fluid and Electrolyte Imbalance: Goal: Adequate fluid and electrolyte balance will be achieved and maintained Outcome: Completed Problem: VTE Prophylaxis: Goal: Will be free of DVT Outcome: Completed Problem: Acute Pain: Goal: Ability to identify pain intensity on a pain scale and rate it consistently will be achieved and maintained Outcome: Completed Goal: Understanding of proper administration and use of medicines will be achieved Outcome: Completed Problem: Safety: Goal: Patient will remain free of falls during hospital stay Outcome: Completed Goal: Free from injury during hospitalization Outcome: Completed Problem: Discharge Planning: Goal: Discharge needs of the adult patient will be met Outcome: Completed Normal [facility] Transfer And Line Up Worker Authentication Interface Message Text Problem: Alteration in Tissue Perfusion: Cardiac: Goal: Promote adequate perfusion and limit complications resulting from myocardial oxygen supply, demand and imbalance Outcome: Not Progressing Continue with plan of care as ordered with medication adjustment as per order and continuous cardiac monitoring, accurate I and O, DW and labs per order. Increase activity as tolerated and reinforce teaching as per pt needs. Problem: Alteration in Respiratory Status: Goal: Achieve Optimal Respiratory Status with Minimal Ventilatory/Oxygen Support Outcome: Not Progressing Continue with plan of care as ordered with supplemental oxygen as per pt needs, encourage C and DB, activity as tolerated, and up OOB for meals when medically stable. Problem: Discharge Planning: Goal: Discharge needs of the adult patient will be met Outcome: Not Progressing No plans for dishcharge, reinforce plan of care and teach patient diagnosis as needed with reinforcement and clarification. Explain all medications, treatments, and therapies and encourage pt to voice any questions or concerns. Problem: Routine Care: Goal: Patient care will be managed and maintained throughout hospital stay per unit specific routine care procedure Outcome: Progressing Problem: Fluid and Electrolyte Imbalance: Goal: Adequate fluid and electrolyte balance will be achieved and maintained Outcome: Progressing Problem: VTE Prophylaxis: Goal: Will be free of DVT Outcome: Progressing Problem: Acute Pain: Goal: Ability to identify pain intensity on a pain scale and rate it consistently will be achieved and maintained Outcome: Progressing Goal: Understanding of proper administration and use of medicines will be achieved Outcome: Progressing Problem: Safety: Goal: Patient will remain free of falls during hospital stay Outcome: Progressing Goal: Free from injury during hospitalization Outcome: Progressing Normal [facility] Discharge Planning Noteon Transfer And Line Up Worker Authentication Interface Message Text CASE MANAGEMENT/SOCIAL WORK SNF DC NOTE: Pt has been cleared for transfer to SNF on this date Pt will be transferred to [facility] (name) via Delmer Richard and Juila ([id number]) at 4 PM Nursing report may be called to [phone] ask for Ken Support person notified: Eva Izquierdo at [phone] Patient/Family, team aware of above and agreeable. For discharge, please ensure the following is completed: ??? MD to place DC order, reconcile meds, and print narcotics to go with patient to SNF ??? Upholstery Cleaner to print Discharge Summary, [place], Summary of Care, Narcotic Scripts, and Signature Page and place in a packet to be given to wood pile driver operator If transport/discharge needs to be adjusted/cancelled, team (MD/RN) to cancel transport, update support person, and update receiving facility. ESTHER Tadeo, LEE Inpatient Supervisor Network Control Operators Normal [facility] GLUCOSE, FINGERSTICK-IN OFFI CEon 01-08-2021 Glucose [Mass/Vol] 150 mg/dL High 80-116 [facility] Comment on above: Performed By: #### C OVID19 #### [facility]ORATORY [address] [place] [address], Glucose [Mass/Vol] 103 mg/dL Normal 80-116 [facility] Comment on above: Performed By: #### C R BGA #### [facility] [address] [place], [place], Glucose [Mass/Vol] 149 mg/dL High 80-116 [facility] Comment on above: Result Comment: Colton duvall RN, APN, MD Performed By: #### C R BGA #### [facility] [address] [place] [address], Glucose [Mass/Vol] 179 mg/dL High 80-116 [facility] Comment on above: Result Comment: Foll ow Protocol Performed By: #### C R BGA #### [facility] [address] [place] [address], MAGNESIUMon 01-08-2021 Magnesium [Mass/Vol] 1.9 mg/dL Normal 1.6-2.8 [facility] Comment on above: Performed By: #### C R BGA #### [facility] [address] [place] [address], NOVEL CORONAVIRUS (COVID-19) on 01-08-2021 SARS-CoV-2 (COVID-19) RNA PARISH+probe Ql (Unsp spec) Not detected Normal Not Detected [facility] Comment on above: Order Comment: This test is intended for use only under Emergency Use Authorization (EUA). This test was developed, and its performance characteristics determined by [facility] which is certified under CLIA as qualified to perform high complexity clinical laboratory testing. Result Comment: This assay was performed using Kelsey ADE RTPCR technology. Performed By: #### C OVID19 #### [facility] [address] [place] [address], BASIC METABOLIC PANELon 12-26 Anion gap [Moles/Vol] 14 mmol/L High 5-13 [facility] Comment on above: Performed By: #### A PTT #### [facility] [address] [place] [address], Calcium [Mass/Vol] 9.1 mg/dL Normal 8.4-10.4 [facility] Comment on above: Performed By: #### A PTT #### S PATHOLOGY LABORATORY [address] [place] [address], Chloride [Moles/Vol] 91 mmol/L Low 97-111 [facility] Comment on above: Performed By: #### A PTT #### [facility] [address] [place] [address], CO2 [Moles/Vol] 41 mmol/L High 21-30 [facility] Comment on above: Performed By: #### A PTT #### [facility] [address] [place] [address], Creatinine [Mass/Vol] 0.80 mg/dL Normal 0.50-1.10 [facility] Comment on above: Performed By: #### A PTT #### [facility] [address] [place] [address], ESTIMATED GFR (CKD-EPI) 79 mL/min/1.73sqm Normal >=60 [facility] Comment on above: Performed By: #### A PTT #### [facility] [address] [place] [address], Glucose [Mass/Vol] 147 mg/dL High 80-116 [facility] Comment on above: Performed By: #### A PTT #### S PATHOLOGY LABORATORY [address] [place] [address], Potassium [Moles/Vol] 3.5 mmol/L Normal 3.3-5.3 [facility] Comment on above: Performed By: #### A PTT #### S PATHOLOGY LABORATORY [address] [place] [address], Sodium [Moles/Vol] 142 mmol/L Normal 135-148 [facility] Comment on above: Performed By: #### A PTT #### S PATHOLOGY LABORATORY [address] [place] [address], Urea nitrogen [Mass/Vol] 11 mg/dL Normal 8-22 [facility] Comment on above: Performed By: #### A PTT #### S PATHOLOGY LABORATORY [address] [place] [address], Anion gap [Moles/Vol] 17 mmol/L High 5-13 [facility] Comment on above: Performed By: #### A PTT #### [facility] [address] [place] [address], Calcium [Mass/Vol] 9.0 mg/dL Normal 8.4-10.4 [facility] Comment on above: Performed By: #### A PTT #### [facility] [address] [place] [address], Chloride [Moles/Vol] 92 mmol/L Low 97-111 [facility] Comment on above: Performed By: #### A PTT #### [facility] [address] [place] [address], CO2 [Moles/Vol] 37 mmol/L High 21-30 [facility] Comment on above: Performed By: #### A PTT #### [facility] [address] [place] [address], Creatinine [Mass/Vol] 0.67 mg/dL Normal 0.50-1.10 [facility] Comment on above: Performed By: #### A PTT #### [facility] [address] [place] [address], ESTIMATED GFR (CKD-EPI) 94 mL/min/1.73sqm Normal >=60 [facility] Comment on above: Performed By: #### A PTT #### [facility] [address] [place] [address], Glucose [Mass/Vol] 123 mg/dL High 80-116 [facility] Comment on above: Performed By: #### A PTT #### [facility] [address] [place] [address], Potassium [Moles/Vol] 3.3 mmol/L Normal 3.3-5.3 [facility] Comment on above: Performed By: #### A PTT #### [facility] [address] [place] [address], Sodium [Moles/Vol] 143 mmol/L Normal 135-148 [facility] Comment on above: Performed By: #### A PTT #### [facility] [address], [place], Urea nitrogen [Mass/Vol] 10 mg/dL Normal 8-22 [facility] Comment on above: Performed By: #### A PTT #### [facility] [address], [place], CBC WITH DIFFERENTIALon 12-26 Basophils (Bld) [#/Vol] 0.04 10*3/uL Normal 0.00-0.20 [facility] Comment on above: Performed By: #### C BCDSAT ####[facility] PATHOLOGY [id number] [place], [place], Basophils/100 WBC (Bld) 0.7 % Normal <=1.9 [facility] Comment on above: Performed By: #### C BCDSAT ####[facility] PATHOLOGY [id number] [place] [address], Eosinophils (Bld) [#/Vol] 0.40 10*3/uL Normal 0.00-0.70 [facility] Comment on above: Performed By: #### C BCDSAT ####[facility] PATHOLOGY [id number] [place], [place], Eosinophils/100 WBC (Bld) 6.1 % High 0.1-4.0 [facility] Comment on above: Performed By: #### C BCDSAT ####S PATHOLOGY [id number] [place], [place], Erythrocyte distribution width (RBC) [Ratio] 18.8 % High 11.5-14.5 [facility] Comment on above: Performed By: #### C BCDSAT ####S PATHOLOGY [id number] [place], Hematocrit (Bld) [Volume fraction] 33.4 % Low 36.0-46.0 [facility] Comment on above: Performed By: #### C BCDSAT ####[facility] PATHOLOGY [id number] [place], Hemoglobin (Bld) [Mass/Vol] 10.3 g/dL Low 12.0-15.0 [facility] Comment on above: Performed By: #### Shaun OLIVOAT ####[facility] PATHOLOGY [id number] [place], Lymphocytes (Bld) [#/Vol] 0.86 10*3/uL Low 1.00-4.80 [facility] Comment on above: Performed By: #### Shaun OLIVOAT ####[facility] PATHOLOGY [id number] [place] [address], Lymphocytes/100 WBC (Bld) 13.3 % Low 24.0-44.0 [facility] Comment on above: Performed By: #### Shaun OLIVOAT ####[facility] PATHOLOGY [id number] [place] [address], MCH (RBC) [Entitic mass] 23.0 pg Low 26.0-34.0 [facility] Comment on above: Performed By: #### Shaun OLIVOAT ####[facility] PATHOLOGY [id number] [place] [address], MCHC (RBC) [Mass/Vol] 30.7 g/dL Low 32.0-35.9 [facility] Comment on above: Performed By: #### Shaun OLIVOAT ####[facility] PATHOLOGY [id number] [place] [address], MCV (RBC) [Entitic vol] 75 fL Low 80-100 [facility] Comment on above: Performed By: #### Shaun OLIVOAT ####[facility] PATHOLOGY [id number] [place] [address], MONOCYTE DISTRIBUTION WIDTH Normal [facility] Comment on above: Performed By: #### Shaun OLIVOAT ####[facility] PATHOLOGY [id number] [place], Monocytes (Bld) [#/Vol] 0.55 10*3/uL Normal 0.20-1.00 [facility] Comment on above: Performed By: #### Shaun OLIVOAT ####[facility] PATHOLOGY [id number] [place] [address], Monocytes/100 WBC (Bld) 8.5 % Normal 2.0-11.0 [facility] Comment on above: Performed By: #### C BCDSAT ####[facility] PATHOLOGY [id number] [place], Neutrophils (Bld) [#/Vol] 4.65 10*3/uL Normal 1.50-8.00 [facility] Comment on above: Performed By: #### C TREVORDSAT ####[facility] PATHOLOGY [id number] [place], Neutrophils/100 WBC (Bld) 71.5 % Normal 31.0-76.0 [facility] Comment on above: Performed By: #### Shaun MURRAYDSAT ####[facility] PATHOLOGY [id number] [place], Platelet mean volume (Bld) [Entitic vol] 7.5 fL Normal 7.5-11.2 [facility] Comment on above: Performed By: #### Shaun MURRAYDSAT ####[facility] PATHOLOGY [id number] [place] [address], Platelets (Bld) [#/Vol] 189 10*3/uL Normal 150-400 [facility] Comment on above: Performed By: #### Shaun BCDSAT ####[facility] PATHOLOGY [id number] [place], RBC (Bld) [#/Vol] 4.47 10*6/uL Normal 4.00-5.20 [facility] Comment on above: Performed By: #### C BCDSAT ####[facility] PATHOLOGY [id number] [place], WBC (Bld) [#/Vol] 6.5 10*3/uL Normal 4.5-11.5 [facility] Comment on above: Performed By: #### C BCDSAT ####[facility] PATHOLOGY [id number] [place], Basophils (Bld) [#/Vol] 0.05 10*3/uL Normal 0.00-0.20 [facility] Comment on above: Performed By: #### C BCDSAT ####[facility] PATHOLOGY [id number] [place], Basophils/100 WBC (Bld) 0.8 % Normal <=1.9 [facility] Comment on above: Performed By: #### C BCDSAT ####[facility] PATHOLOGY [id number] [place], Eosinophils (Bld) [#/Vol] 0.54 10*3/uL Normal 0.00-0.70 [facility] Comment on above: Performed By: #### C BCDSAT ####[facility] PATHOLOGY [id number] [place], Eosinophils/100 WBC (Bld) 8.3 % High 0.1-4.0 [facility] Comment on above: Performed By: #### C BCDSAT ####[facility] PATHOLOGY [id number] [place] [address], Erythrocyte distribution width (RBC) [Ratio] 18.8 % High 11.5-14.5 [facility] Comment on above: Performed By: #### C BCDSAT ####[facility] PATHOLOGY [id number] [place], Hematocrit (Bld) [Volume fraction] 33.5 % Low 36.0-46.0 [facility] Comment on above: Performed By: #### C BCDSAT ####[facility] PATHOLOGY [id number] [place], Hemoglobin (Bld) [Mass/Vol] 10.4 g/dL Low 12.0-15.0 [facility] Comment on above: Performed By: #### C BCDSAT ####[facility] PATHOLOGY [id number] [place], Lymphocytes (Bld) [#/Vol] 1.29 10*3/uL Normal 1.00-4.80 [facility] Comment on above: Performed By: #### C BCDSAT ####[facility] PATHOLOGY [id number] [place], Lymphocytes/100 WBC (Bld) 19.8 % Low 24.0-44.0 [facility] Comment on above: Performed By: #### C TREVORDSAT ####[facility] PATHOLOGY [id number] [place], MCH (RBC) [Entitic mass] 22.9 pg Low 26.0-34.0 [facility] Comment on above: Performed By: #### C TREVORDSAT ####[facility] PATHOLOGY [id number] [place], MCHC (RBC) [Mass/Vol] 31.1 g/dL Low 32.0-35.9 [facility] Comment on above: Performed By: #### C TREVORDSAT ####[facility] PATHOLOG[facility] [id number] [place], MCV (RBC) [Entitic vol] 74 fL Low 80-100 [facility] Comment on above: Performed By: #### Shaun MURRAYDSAT ####[facility] PATHOLOGY [id number] [place] [address], MONOCYTE DISTRIBUTION WIDTH Normal [facility] Comment on above: Performed By: #### C TREVORDSAT ####[facility] PATHOLOGY [id number] [place], Monocytes (Bld) [#/Vol] 0.59 10*3/uL Normal 0.20-1.00 [facility] Comment on above: Performed By: #### Shaun MURRAYDSAT ####[facility] PATHOLOGY [id number] [place], Monocytes/100 WBC (Bld) 9.1 % Normal 2.0-11.0 [facility] Comment on above: Performed By: #### C BCDSAT ####[facility] PATHOLOGY [id number] [place], Neutrophils (Bld) [#/Vol] 4.04 10*3/uL Normal 1.50-8.00 [facility] Comment on above: Performed By: #### Shaun BCDSAT ####[facility] PATHOLOGY [id number] [place] [address], Neutrophils/100 WBC (Bld) 62.1 % Normal 31.0-76.0 [facility] Comment on above: Performed By: #### C BCDSAT ####S PATHOLOGY [id number] [place], Platelet mean volume (Bld) [Entitic vol] 6.7 fL Low 7.5-11.2 [facility] Comment on above: Performed By: #### C TREVORDSAT ####S PATHOLOGY [id number] [place], Platelets (Bld) [#/Vol] 182 10*3/uL Normal 150-400 [facility] Comment on above: Performed By: #### C TREVORDSAT ####[facility] [id number] [place], RBC (Bld) [#/Vol] 4.55 10*6/uL Normal 4.00-5.20 [facility] Comment on above: Performed By: #### C TREVORDSAT ####[facility] [id number] [place], WBC (Bld) [#/Vol] 6.5 10*3/uL Normal 4.5-11.5 [facility] Comment on above: Performed By: #### C TREVORDSAT ####S PATHOLOGY [id number] [place], Care Plan Noteon 01-07-2021 Transfer And Line Up Worker Authentication Interface Message Text Problem: Alteration in Respiratory Status: Goal: Achieve Optimal Respiratory Status with Minimal Ventilatory/Oxygen Support Outcome: Not Progressing Note: Patient continues to be above baseline oxygen requirement. Problem: Routine Care: Goal: Patient care will be managed and maintained throughout hospital stay per unit specific routine care procedure Outcome: Progressing Note: Patient plan of care will be maintained per CICU protocol and physician orders. Problem: Alteration in Tissue Perfusion: Cardiac: Goal: Promote adequate perfusion and limit complications resulting from myocardial oxygen supply, demand and imbalance Outcome: Progressing Note: Continuous heparin infusion for anticoagulation in the setting of A.Fib. Problem: Fluid and Electrolyte Imbalance: Goal: Adequate fluid and electrolyte balance will be achieved and maintained Outcome: Progressing Note: Daily labs per physician order. Problem: VTE Prophylaxis: Goal: Will be free of DVT Outcome: Progressing Note: Continuous heparin infusion. Problem: Acute Pain: Goal: Ability to identify pain intensity on a pain scale and rate it consistently will be achieved and maintained Outcome: Progressing Note: Patient able to rate pain on numeric scale. Goal: Understanding of proper administration and use of medicines will be achieved Outcome: Progressing Note: Patient given 1x dose of [place] for pain in buttocks. Problem: Safety: Goal: Patient will remain free of falls during hospital stay Outcome: Progressing Goal: Free from injury during hospitalization Outcome: Progressing Note: Patient free from injury at this time. Daily Falls Risk and Rico Assessment per protocol. Bed in locked and low position. Call light within reach. Purposeful hourly rounding maintained. Problem: Discharge Planning: Goal: Discharge needs of the adult patient will be met Outcome: Progressing Note: No discharge procedures on file. Normal [facility] GLUCOSE, FINGERSTICK-IN OFFI CEon 01-07-2021 Glucose [Mass/Vol] 121 mg/dL High 80-116 [facility] Comment on above: Performed By: #### C R BGA #### S PATHOLOGY LABORATORY [address] [place] [address], Glucose [Mass/Vol] 174 mg/dL High 80-116 [facility] Comment on above: Performed By: #### [id number] #### NURSING GLUCOSE PROGRAM [address] [place] [address], Glucose [Mass/Vol] 126 mg/dL High 80-116 [facility] Comment on above: Performed By: #### A PTT #### S PATHOLOGY LABORATORY [address] [place] [address], Glucose [Mass/Vol] 119 mg/dL High 80-116 [facility] Comment on above: Performed By: #### A PTT #### S PATHOLOGY LABORATORY [address] [place] [address], MAGNESIUMon 01-07-2021 Magnesium [Mass/Vol] 1.9 mg/dL Normal 1.6-2.8 [facility] Comment on above: Performed By: #### A PTT #### S PATHOLOGY LABORATORY [address] [place] [address], PARTIAL THROMBOPLASTIN TIMEo n 01-07-2021 aPTT Coag (Bld) [Time] 49 s High 25-37 [facility] Comment on above: Performed By: #### A PTT ####[facility] [id number] [facility] [place], [address] Progress Noteson 01-07-2021 Transfer And Line Up Worker Authentication Interface Message Text [facility] continues to follow for pt's eventual return to [facility] SNF, where pt is a LTC reside and on bed hold. CICU team is aware that pt will require negative COVID result within 48 hrs of DC. SW sent updated clinicals to [facility] via [employer]. Transportation form saved in [employer]. Medical team to contact Sunday (01/08) at [phone] or Sunday (01/09) at [phone], should pt be cleared for return to her SNF. Analisa Ervin, DRAGLINE MECHANIC, SUPERVISOR METAL FABRICATING Inpatient Supervisor Network Control Operators Normal [facility] Transfer And Line Up Worker Authentication Interface Message Text Attending Physician Teaching Note: I saw and evaluated this patient and personally obtained goldman elements of the history and physical examination, and reviewed goldman labs, and imaging studies. I also discussed the evaluation and management of this patient with the residents team and/or fellow. Please refer to the resident's/fellow's note for more detailed documentation of history and complete problem list and plan of care. Interval History: - remained extubated. Doing well. Pertinent physical exam findings: BP 109/61 (BP Location: left arm) Pulse 93 Temp 97.7 ???F (36.5 ???C) (Oral) Resp 20 Ht 5' 11 (1.803 m) Wt 297 lb 6.4 oz (134.9 kg) Comment: bed scale SpO2 99% BMI 41.48 kg/m??? General:???Awake on the vent and follows commands. ??? Neck:?JVP???12?? ?cm Heart:???normal S1, S2 and +S3 Lungs:???bibasilar rales Abdomen:???Soft, Nontender, Nondistended Extremities: LE edema???Bilateral???+ 1 ? Pertinent diagnostic tests: -???Echocardiogram: LVEF of 40% with globally reduced function and LVH. LA severely dilated. RV normal in size but with reduced function. sPAP 37 mmHg.? Summary:??? 65 year old female with hx of COPD on home O2, hx of DVT, paroxysmal Afib, CKD, IDDM, DLP, and obesity, and HF with systolic and diastolic LV dysfunction, who was transferred from outside hospital with acute respiratory failure.? Active problems during this admission: -???Acute hypoxic respiratory failure, secondary to HF with pulmonary edema. No evidence of pneumonia (normal procalcitonin and WBC count). - ADHF with pulmonary edema. - Afib with RVR. Rate is getting better controlled. ? PLAN FOR THE DAY: -Continue with Digoxin and metoprolol (switch to long acting) - Increase lisinopril to 5 mg daily - transition back to DOAC - Out of bed to chair. - Continue IV diuresis. - Anticipate discharge in the next 1-2 days. . Andriy Lucas MD, MS. Cardiology, Advanced Heart Failure and Transplantation Provider ID: [id number] Normal [facility] BASIC METABOLIC PANELon 12-26 Anion gap [Moles/Vol] 21 mmol/L High 5-13 [facility] Comment on above: Performed By: #### C R BGA #### [facility] [address] [place] [address], Calcium [Mass/Vol] 9.2 mg/dL Normal 8.4-10.4 [facility] Comment on above: Performed By: #### C R BGA #### [facility] [address] [place] [address], Chloride [Moles/Vol] 90 mmol/L Low 97-111 [facility] Comment on above: Performed By: #### C R BGA #### [facility] [address] [place] [address], CO2 [Moles/Vol] 35 mmol/L High 21-30 [facility] Comment on above: Performed By: #### C R BGA #### [facility] [address] [place] [address], Creatinine [Mass/Vol] 0.81 mg/dL Normal 0.50-1.10 [facility] Comment on above: Performed By: #### C R BGA #### [facility] PATH[facility] LABORATORY [address] [place] [address], ESTIMATED GFR (CKD-EPI) 78 mL/min/1.73sqm Normal >=60 [facility] Comment on above: Performed By: #### C R BGA #### [facility] PATH[facility] LABORATORY [address] [place] [address], Glucose [Mass/Vol] 143 mg/dL High 80-116 [facility] Comment on above: Performed By: #### C R BGA #### [facility] PATH[facility] LABORATORY [address] [place] [address], Potassium [Moles/Vol] 3.6 mmol/L Normal 3.3-5.3 [facility] Comment on above: Performed By: #### C R BGA #### [facility] [facility] [address] [place] [address], Sodium [Moles/Vol] 142 mmol/L Normal 135-148 [facility] Comment on above: Performed By: #### C R BGA #### [facility] [address] [place] [address], Urea nitrogen [Mass/Vol] 10 mg/dL Normal 8-22 [facility] Comment on above: Performed By: #### C R BGA #### [facility]OR[facility] [address] [place] [address], CBC WITH DIFFERENTIALon 12-26 Basophils (Bld) [#/Vol] 0.09 10*3/uL Normal 0.00-0.20 [facility] Comment on above: Performed By: #### C BCDSAT ####[facility] PATHOLOGY [id number] [place], [place], Basophils/100 WBC (Bld) 1.4 % Normal <=1.9 [facility] Comment on above: Performed By: #### C BCDSAT ####[facility] PATHOLOGY [id number] [place], [place], Eosinophils (Bld) [#/Vol] 0.43 10*3/uL Normal 0.00-0.70 [facility] Comment on above: Performed By: #### C PALLAVIAT ####[facility] PATHOLOGY [id number] [place], Eosinophils/100 WBC (Bld) 6.7 % High 0.1-4.0 [facility] Comment on above: Performed By: #### C PALLAVIAT ####[facility] PATHOLOGY [id number] [place] [address], Erythrocyte distribution width (RBC) [Ratio] 18.5 % High 11.5-14.5 [facility] Comment on above: Performed By: #### C PALLAVIAT ####[facility] PATHOLOGY [id number] [place] [address], Hematocrit (Bld) [Volume fraction] 32.4 % Low 36.0-46.0 [facility] Comment on above: Performed By: #### C PALLAVIAT ####[facility] PATHOLOGY [id number] [place] [address], Hemoglobin (Bld) [Mass/Vol] 10.2 g/dL Low 12.0-15.0 [facility] Comment on above: Performed By: #### Shaun OLIVOAT ####[facility] PATHOLOGY [id number] [place] [address], Lymphocytes (Bld) [#/Vol] 1.34 10*3/uL Normal 1.00-4.80 [facility] Comment on above: Performed By: #### C PALLAVIAT ####[facility] PATHOLOGY [id number] [place] [address], Lymphocytes/100 WBC (Bld) 21.2 % Low 24.0-44.0 [facility] Comment on above: Performed By: #### C PALLAVIAT ####[facility] PATHOLOGY [id number] [place] [address], MCH (RBC) [Entitic mass] 23.3 pg Low 26.0-34.0 [facility] Comment on above: Performed By: #### C PALLAVIAT ####[facility] PATHOLOGY [id number] [place] [address], MCHC (RBC) [Mass/Vol] 31.6 g/dL Low 32.0-35.9 [facility] Comment on above: Performed By: #### Shaun OLIVOAT ####[facility] PATHOLOGY [id number] [place], MCV (RBC) [Entitic vol] 74 fL Low 80-100 [facility] Comment on above: Performed By: #### C PALLAVIAT ####[facility] PATHOLOGY [id number] [place] [address], MONOCYTE DISTRIBUTION WIDTH Normal [facility] Comment on above: Performed By: #### C PALLAVIAT ####[facility] PATHOLOGY [id number] [place], Monocytes (Bld) [#/Vol] 0.68 10*3/uL Normal 0.20-1.00 [facility] Comment on above: Performed By: #### Shaun OLIVOAT ####[facility] PATHOLOGY [id number] [place] [address], Monocytes/100 WBC (Bld) 10.7 % Normal 2.0-11.0 [facility] Comment on above: Performed By: #### Shaun OLIVOAT ####[facility] PATHOLOGY [id number] [place] [address], Neutrophils (Bld) [#/Vol] 3.81 10*3/uL Normal 1.50-8.00 [facility] Comment on above: Performed By: #### Shaun OLIVOAT ####[facility] PATHOLOGY [id number] [place] [address], Neutrophils/100 WBC (Bld) 60.1 % Normal 31.0-76.0 [facility] Comment on above: Performed By: #### Shaun OLIVOAT ####S PATHOLOGY [id number] [place], Platelet mean volume (Bld) [Entitic vol] 6.8 fL Low 7.5-11.2 [facility] Comment on above: Performed By: #### Shaun OLIVOAT ####[facility] PATHOLOGY [id number] [place] [address] [place], Platelets (Bld) [#/Vol] 208 10*3/uL Normal 150-400 [facility] Comment on above: Performed By: #### C BCDSAT ####S PATHOLOGY [id number] [place], RBC (Bld) [#/Vol] 4.40 10*6/uL Normal 4.00-5.20 [facility] Comment on above: Performed By: #### C BCDSAT ####S PATHOLOGY [id number] [place], WBC (Bld) [#/Vol] 6.3 10*3/uL Normal 4.5-11.5 [facility] Comment on above: Performed By: #### C BCDSAT ####S PATHOLOGY [id number] [place], [place], Consultson 01-06-2021 Transfer And Line Up Worker Authentication Interface Message Text Wound Ostomy Continence (WOC) Nursing Consult Reason for Exam: consult order placed with a reason of WOC Reason for Consult: evaluation for specialty bed, pressure injury Pressure injury on admission sacrum/buttocks, please evaluate elbows, heels, and need for specialized bed. Scattered wounds/abrasions. RN Assigned to Patient During Consult: Corky Banda RN. This RN was not available during the assessment; findings were discussed with them following the assessment. Assessment/Findings: Patient is alert, resting in bed. Recently extubated. Patient denies knowledge of any wounds and states that she is bed bound, currently living in a [facility]. Patient was turned to the left side with 1 assist. Unblanchable burgundy/maroon areas were noted to the left and right sacrum. BLE noted to be dry and scaly with no open wounds, legs washed with soap and water. Calf measurements were obtained today; R=54cm and L=54.5cm. DP pulses were palpable and confirmed patient does not have an allergy to latex. Extra pair of Elasticated Tubular Bandage left at the bedside. Instructions provided to patient on application. Bilateral breast folds noted to be moist/pink/red. Wound 01/04/21 1130 Left Sacrum Pressure injury (Active) 01/04/21 1130 Orientation: Left Wound Location: Sacrum Wound Types: Pressure injury Wound Description: Present on Admission?: Present on Arrival to Hospital Ongoing - Patient Being Discharged: Previously Removed / Not Present: Length (cm) 2.5 cm 01/06/21 1500 Width (cm) 1.5 cm 01/06/21 1500 Wound Surface Area (cm2) 3.75 cm2 01/06/21 1500 Wound Bed Burgundy/Maroon;Unbla nchable erythema;Red 01/06/21 1500 Surrounding Tissue/Wound Edge Blanchable erythema 01/06/21 1500 Drainage None 01/06/21 1500 Dressing Dressing intact 01/06/21 1500 Wound Image 01/06/21 1500 Stage Deep Tissue Injury 01/06/21 1500 Wound 01/04/21 1130 Right Sacrum Pressure injury (Active) 01/04/21 1130 Orientation: Right Wound Location: Sacrum Wound Types: Pressure injury Wound Description: Present on Admission?: Present on Arrival to Hospital Ongoing - Patient Being Discharged: Previously Removed / Not Present: Length (cm) 2.5 cm 01/06/21 1500 Width (cm) 3.5 cm 01/06/21 1500 Wound Surface Area (cm2) 8.75 cm2 01/06/21 1500 Depth (cm) 0 cm 01/06/21 1500 Wound Volume (cm3) 0 cm3 01/06/21 1500 Wound Bed Red;Burgundy/Maroon;U nblanchable erythema 01/06/21 1500 Surrounding Tissue/Wound Edge Blanchable erythema 01/06/21 1500 Drainage None 01/06/21 1500 Dressing Mepilex foam 01/06/21 1500 Stage Deep Tissue Injury 01/06/21 1500 01/06/21 1500 Wound 01/06/21 1628 Lower;Right;Left Breast Moisture-associated skin damage Placement Date/Time: 01/06/211627 Orientation: Lower;Right;Left Wound Location: Breast Wound Types: Moisture-associated skin damage Present on Admission?: Present on Arrival to Hospital Wound Bed Kapowsin;Red;Moist Surrounding Tissue/Wound Edge Blanchable erythema Drainage Scant;Serosanguineous Dressing Open to air Wound Image Skin Rounds: Occiput, ears, elbows, sacrum, and heels inspected. Patient is on a Brian bed with Isogel low air loss mattress/pump in place and functioning. Patient has Molnlyke Z-flex heel boots. Turning wedges in place with Aiotra system in place. Care Provided to Patient Included: dressed wound per recommendation, turned and reposition, wedge/pillow in place and call sepulveda in reach WO Nurse Recommendation: Sacral DTIs- Pad and protect area with Mepilex foam dressing and monitor area at regular intervals. Breast and abdominal folds- Clean folds with pH balanced cleanser, then dry. Gently lift the skin fold and smooth one edge of InterDry in the base of the skin fold. Leave 1-2 inches of the Interdry exposed to air. Product should not be used with other barrier creams/products. Sheets can be left in place for up to 5 days. (Interdry is a floor stock item from store room.) BLE- Apply single layer Elasticated Tubular Bandage (size G) for gentle compression (8-10mmHg). Elasticated Tubular Bandage must be applied with length great enough to extend from approximately 2 below the knee to the toe line. (For today's visit, calf measurements were obtained to ensure appropriate size Elasticated Tubular Bandage would be used, confirmed patient does not have latex allergy and DP pulses were palpable). Extra pair of Elasticated Tubular Bandage left at the bedside for patient. Instructions provided to patient on application and the importance of adjusting them, should they roll behind the upper calf. Nursing staff can assist patient with Elasticated Tubular Bandage care: hand wash in the sink with mild soap and water, rinse well and squeeze out excess water (do not wring out and/or twist excessively as this will impair the elastic integrity.) Pat any excess water away with a towel and hang to fully dry. Do not place wet or damp Elasticat (more content not included)... Normal [facility] GLUCOSE, FINGERSTICK-IN OFFI CEon 01-06-2021 Glucose [Mass/Vol] 129 mg/dL High 80-116 [facility] Comment on above: Performed By: #### C R BGA #### [facility] [address] [place], [address] Glucose [Mass/Vol] 133 mg/dL High 80-116 [facility] Comment on above: Result Comment: Foll ow Protocol Performed By: #### C R BGA #### [facility] [address] [place], [place], Glucose [Mass/Vol] 144 mg/dL High 80-116 [facility] Comment on above: Result Comment: Foll ow Protocol Performed By: #### 8 2948 ####NURSING GLUCOSE [id number] [place], [address] Glucose [Mass/Vol] 120 mg/dL High 80-116 [facility] Comment on above: Performed By: #### 8 2948 ####NURSING GLUCOSE [id number] [place], [address] [place] 01-06-2021 Transfer And Line Up Worker Authentication Interface Message Text Social Work/Case Management: Reason for placement: Other - LTC resident return Patient level of care required : Intermediate Applicant's potential for returning to community: Anticipate pt to remain in LTC setting. Convalescent stay:>180 days Prognosis: Good Rehab Potential: Improve Mental/Behavioral status:Disoriented Affect: Calm Social Work Assessment Functional status prior to admission: Living at SNF for LTC prior to admission. Community agencies active with patient: [facility]. Support system: Family. Eva Stevenson (HCPOA). Capacity for independent living/adjunct faculty for medical terminology plan: Remain in LTC facility. Other hospital admissions within the past 60 days: No Other pertinent problems: n/a. CAROLINA Seymour, SUPERVISOR METAL FABRICATING Inpatient Supervisor Network Control Operators Normal [facility] MAGNESIUMon 01-06-2021 Magnesium [Mass/Vol] 2.1 mg/dL Normal 1.6-2.8 [facility] Comment on above: Performed By: #### C R BGA #### [facility] [address] [place], [place], PARTIAL THROMBOPLASTIN TIMEo n 01-06-2021 aPTT Coag (Bld) [Time] 56 s High 25-37 [facility] Comment on above: Performed By: #### A PTT #### [facility] [address] [place], [place], Progress Noteson 01-06-2021 Transfer And Line Up Worker Authentication Interface Message Text Wound Ostomy Continence (WOC) Nursing Consult Reason for Exam: consult order placed with a reason of WOC Reason for Consult: pressure injury and evaluation for specialty bed Pressure injury on admission sacrum/buttocks, please evaluate elbows, heels, and need for specialized bed. Scattered wounds/abrasions. RN Assigned to Patient During Consult: Corky Banda RN. Assessment/Findings: An attempt was made to see patient for WOC consult. Unable to complete wound consult at this time. Will attempt to complete in-person consult at a later date/time, as able. Alejandra HEALYN, RN WOC Nurse Jesica WYNN, RN, CWOCN Normal [facility] Transfer And Line Up Worker Authentication Interface Message Text SW continues to follow for pt's eventual return to LTC SNF, [facility]. SW sent pt's updated clinicals to [facility] via [facility] (SNF-return referral). CICU team made aware that pt will require a negative COVID test within 48 hours of DC back to SNF. No pre-cert is needed as pt is under bed hold at her SNF. Analisa Ervin, DRAGLINE MECHANIC, SUPERVISOR METAL FABRICATING Inpatient Supervisor Network Control Operators Normal [facility] BASIC METABOLIC PANELon 12-26 Anion gap [Moles/Vol] 14 mmol/L High 5-13 [facility] Comment on above: Performed By: #### C H8 ####S PATHOLOGY [id number] [place], Calcium [Mass/Vol] 8.7 mg/dL Normal 8.4-10.4 [facility] Comment on above: Performed By: #### C H8 ####S PATHOLOGY [id number] [place], Chloride [Moles/Vol] 90 mmol/L Low 97-111 [facility] Comment on above: Performed By: #### C H8 ####[facility] [id number] [place], CO2 [Moles/Vol] 39 mmol/L High 21-30 [facility] Comment on above: Performed By: #### C H8 ####[facility] [id number] [place], Creatinine [Mass/Vol] 0.76 mg/dL Normal 0.50-1.10 [facility] Comment on above: Performed By: #### C H8 ####S PATHOLOGY [id number] [place], ESTIMATED GFR (CKD-EPI) 84 mL/min/1.73sqm Normal >=60 [facility] Comment on above: Performed By: #### C H8 ####S PATHOLOGY [id number] [place], Glucose [Mass/Vol] 143 mg/dL High 80-116 [facility] Comment on above: Performed By: #### C H8 ####S PATHOLOGY [id number] [place], Potassium [Moles/Vol] 3.8 mmol/L Normal 3.3-5.3 [facility] Comment on above: Performed By: #### C H8 ####S PATHOLOGY [id number] [place], Sodium [Moles/Vol] 139 mmol/L Normal 135-148 [facility] Comment on above: Performed By: #### Shaun H8 ####S PATHOLOGY [id number] [place], Urea nitrogen [Mass/Vol] 11 mg/dL Normal 8-22 [facility] Comment on above: Performed By: #### C H8 ####S PATHOLOGY [id number] [place], Anion gap [Moles/Vol] 15 mmol/L High 5-13 [facility] Comment on above: Performed By: #### C OVID19 #### S PATHOLOGY LABORATORY [address] [place] [address], Calcium [Mass/Vol] 9.0 mg/dL Normal 8.4-10.4 [facility] Comment on above: Performed By: #### Shaun OVID19 #### S PATHOLOGY LABORATORY [address] [place] [address], Chloride [Moles/Vol] 88 mmol/L Low 97-111 [facility] Comment on above: Performed By: #### Shaun OVID19 #### S PATHOLOGY LABORATORY [address] [place] [address], CO2 [Moles/Vol] 38 mmol/L High 21-30 [facility] Comment on above: Performed By: #### C OVID19 #### S PATHOLOGY LABORATORY [address] [place], [place], Creatinine [Mass/Vol] 0.67 mg/dL Normal 0.50-1.10 [facility] Comment on above: Performed By: #### C OVID19 #### S PATHOLOGY LABORATORY [address] [place], [place], ESTIMATED GFR (CKD-EPI) 94 mL/min/1.73sqm Normal >=60 [facility] Comment on above: Performed By: #### C OVID19 #### S PATHOLOGY LABORATORY [address] [place], [place], Glucose [Mass/Vol] 153 mg/dL High 80-116 [facility] Comment on above: Performed By: #### C OVID19 #### S PATHOLOGY LABORATORY [address] [place], [place], Potassium [Moles/Vol] 3.1 mmol/L Low 3.3-5.3 [facility] Comment on above: Performed By: #### C OVID19 #### S PATHOLOGY LABORATORY [address] [place], [place], Sodium [Moles/Vol] 138 mmol/L Normal 135-148 [facility] Comment on above: Performed By: #### C OVID19 #### S PATHOLOGY LABORATORY [address] [place], [place], Urea nitrogen [Mass/Vol] 14 mg/dL Normal 8-22 [facility] Comment on above: Performed By: #### C OVID19 #### S PATHOLOGY LABORATORY [address] [place], [place], Anion gap [Moles/Vol] 18 mmol/L High 5-13 [facility] Comment on above: Performed By: #### C H8 ####[facility] [id number] [place], Calcium [Mass/Vol] 8.7 mg/dL Normal 8.4-10.4 [facility] Comment on above: Performed By: #### C H8 ####S PATHOLOGY [id number] [place], Chloride [Moles/Vol] 91 mmol/L Low 97-111 [facility] Comment on above: Performed By: #### Shaun H8 ####[facility] PATHOLOGY [id number] [place], CO2 [Moles/Vol] 34 mmol/L High 21-30 [facility] Comment on above: Performed By: #### Shaun Hooper8 ####[facility] PATHOLOGY [id number] [place], Creatinine [Mass/Vol] 0.80 mg/dL Normal 0.50-1.10 [facility] Comment on above: Performed By: #### Shaun Hooper8 ####[facility] PATHOLOGY [id number] [place] [address], ESTIMATED GFR (CKD-EPI) 79 mL/min/1.73sqm Normal >=60 [facility] Comment on above: Performed By: #### Shaun Hooper8 ####[facility] PATHOLOGY [id number] [place] [address], Glucose [Mass/Vol] 155 mg/dL High 80-116 [facility] Comment on above: Performed By: #### Shaun H8 ####[facility] PATHOLOGY [id number] [place], Potassium [Moles/Vol] 3.3 mmol/L Normal 3.3-5.3 [facility] Comment on above: Performed By: #### Shaun Hooper8 ####S PATHOLOGY [id number] [place], Sodium [Moles/Vol] 140 mmol/L Normal 135-148 [facility] Comment on above: Performed By: #### Shaun H8 ####S PATHOLOGY [id number] [place], Urea nitrogen [Mass/Vol] 13 mg/dL Normal 8-22 [facility] Comment on above: Performed By: #### Shaun Diaz ####S PATHOLOGY [id number] [place] [address], Anion gap [Moles/Vol] 20 mmol/L High 5-13 [facility] Comment on above: Performed By: #### C OVID19 #### S PATHOLOGY LABORATORY [address] [place] [address], Calcium [Mass/Vol] 8.9 mg/dL Normal 8.4-10.4 [facility] Comment on above: Performed By: #### C OVID19 #### S PATHOLOGY LABORATORY [address] [place] [address], Chloride [Moles/Vol] 89 mmol/L Low 97-111 [facility] Comment on above: Performed By: #### C OVID19 #### S PATHOLOGY LABORATORY [address] [place] [address], CO2 [Moles/Vol] 34 mmol/L High 21-30 [facility] Comment on above: Performed By: #### C OVID19 #### [facility] [address] [place] [address], Creatinine [Mass/Vol] 0.90 mg/dL Normal 0.50-1.10 [facility] Comment on above: Performed By: #### C OVID19 #### [facility] [address] [place] [address], ESTIMATED GFR (CKD-EPI) 68 mL/min/1.73sqm Normal >=60 [facility] Comment on above: Performed By: #### C OVID19 #### S PATHOLOGY LABORATORY [address] [place] [address], Glucose [Mass/Vol] 142 mg/dL High 80-116 [facility] Comment on above: Performed By: #### C OVID19 #### S PATHOLOGY LABORATORY [address] [place] [address], Potassium [Moles/Vol] 2.7 mmol/L Low 3.3-5.3 [facility] Comment on above: Performed By: #### C OVID19 #### S PATHOLOGY LABORATORY [address] [place] [address], Sodium [Moles/Vol] 140 mmol/L Normal 135-148 [facility] Comment on above: Performed By: #### C OVID19 #### S PATHOLOGY LABORATORY [address] [place] [address], Urea nitrogen [Mass/Vol] 15 mg/dL Normal 8-22 [facility] Comment on above: Performed By: #### C OVID19 #### [facility] LABORATORY [address] [place] [address], BLOOD GAS, ARTERIALon 2020 CR PETER 15.2 mmol/L High -2.0-2.0 [facility] Comment on above: Performed By: #### C R BGA #### [facility] LABORATORY [address] [place] [address], CR PCO2 48.7 mm Hg High 35.0-45.0 [facility] Comment on above: Performed By: #### C R BGA #### [facility] LABOR[facility]ORY [address] [place] [address], CR PHA 7.526 High 7.35-7.45 [facility] Comment on above: Performed By: #### C R BGA #### [facility] [address] [place] [address], CR PO2 91 mm Hg Normal 80-100 [facility] Comment on above: Performed By: #### C R BGA #### S PATHOLOGY LABORATORY [address] [place] [address], FIO2 (CATEGORY) 40% Normal [facility] Comment on above: Performed By: #### C R BGA #### S PATHOLOGY LABORATORY [address] [place] [address], HCO3 (Bld) [Moles/Vol] 40 mmol/L High 22-28 [facility] Comment on above: Performed By: #### C R BGA #### S PATHOLOGY LABORATORY [address] [place] [address], MODE Vent Normal [facility] Comment on above: Performed By: #### C R BGA #### S PATHOLOGY LABORATORY [address] [place] [address], Oxygen saturation in Blood 97.5 % Normal >=95.1 [facility] Comment on above: Performed By: #### C R BGA #### [facility] [address] [place] [address], CR PETER 14.2 mmol/L High -2.0-2.0 [facility] Comment on above: Performed By: #### A PTT #### [facility] LABORATORY [address] [place] [address], CR PCO2 42.9 mm Hg Normal 35.0-45.0 [facility] Comment on above: Performed By: #### A PTT #### [facility] [address] [place] [address], CR PHA 7.558 High 7.35-7.45 [facility] Comment on above: Performed By: #### A PTT #### [facility] [address] [place] [address], CR PO2 94 mm Hg Normal 80-100 [facility] Comment on above: Performed By: #### A PTT #### [facility] [address] [place] [address], FIO2 (CATEGORY) 40% Normal [facility] System Comment on above: Performed By: #### A PTT #### [facility] [address] [place] [address], HCO3 (Bld) [Moles/Vol] 38 mmol/L High 22-28 [facility] Comment on above: Performed By: #### A PTT #### [facility] [address] [place] [address], MODE Vent Normal [facility] Comment on above: Performed By: #### A PTT #### [facility] [address] [place] [address], Oxygen saturation in Blood 98.4 % Normal >=95.1 [facility] Comment on above: Performed By: #### A PTT #### [facility] [address] [place] [address], CBC WITH DIFFERENTIALon 08-1 Basophils (Bld) [#/Vol] 0.10 10*3/uL Normal 0.00-0.20 [facility] Comment on above: Performed By: #### A PTT #### [facility] [address], [place], Basophils/100 WBC (Bld) 1.1 % Normal <=1.9 [facility] Comment on above: Performed By: #### A PTT #### [facility] [address], [place], Eosinophils (Bld) [#/Vol] 0.15 10*3/uL Normal 0.00-0.70 [facility] Comment on above: Performed By: #### A PTT #### [facility] [address], [place], Eosinophils/100 WBC (Bld) 1.8 % Normal 0.1-4.0 [facility] Comment on above: Performed By: #### A PTT #### [facility] [address], [place], Erythrocyte distribution width (RBC) [Ratio] 18.7 % High 11.5-14.5 [facility] Comment on above: Performed By: #### A PTT #### [facility] [address], [place], Hematocrit (Bld) [Volume fraction] 32.4 % Low 36.0-46.0 [facility] Comment on above: Performed By: #### A PTT #### [facility] [address], [place], Hemoglobin (Bld) [Mass/Vol] 10.2 g/dL Low 12.0-15.0 [facility] Comment on above: Performed By: #### A PTT #### [facility] [address], [place], Lymphocytes (Bld) [#/Vol] 1.19 10*3/uL Normal 1.00-4.80 [facility] Comment on above: Performed By: #### A PTT #### [facility] [address], [place], Lymphocytes/100 WBC (Bld) 13.8 % Low 24.0-44.0 [facility] Comment on above: Performed By: #### A PTT #### [facility] [address] [place] [address], MCH (RBC) [Entitic mass] 23.4 pg Low 26.0-34.0 [facility] Comment on above: Performed By: #### A PTT #### [facility] [address] [place] [address], MCHC (RBC) [Mass/Vol] 31.6 g/dL Low 32.0-35.9 [facility] Comment on above: Performed By: #### A PTT #### [facility] [address] [place] [address], MCV (RBC) [Entitic vol] 74 fL Low 80-100 [facility] Comment on above: Performed By: #### A PTT #### [facility] [address] [place] [address], MONOCYTE DISTRIBUTION WIDTH Normal [facility] Comment on above: Performed By: #### A PTT #### [facility] [address] [place] [address], Monocytes (Bld) [#/Vol] 0.83 10*3/uL Normal 0.20-1.00 [facility] Comment on above: Performed By: #### A PTT #### [facility] [address] [place] [address], Monocytes/100 WBC (Bld) 9.7 % Normal 2.0-11.0 [facility] Comment on above: Performed By: #### A PTT #### [facility] [address] [place] [address], Neutrophils (Bld) [#/Vol] 6.35 10*3/uL Normal 1.50-8.00 [facility] Comment on above: Performed By: #### A PTT #### [facility] [address] [place] [address], Neutrophils/100 WBC (Bld) 73.6 % Normal 31.0-76.0 [facility] Comment on above: Performed By: #### A PTT #### [facility] [address] [place] [address], Platelet mean volume (Bld) [Entitic vol] 7.0 fL Low 7.5-11.2 [facility] Comment on above: Performed By: #### A PTT #### S PATHOLOGY LABORATORY [address], [place], Platelets (Bld) [#/Vol] 214 10*3/uL Normal 150-400 [facility] Comment on above: Performed By: #### A PTT #### S PATHOLOGY LABORATORY [address], [place], RBC (Bld) [#/Vol] 4.38 10*6/uL Normal 4.00-5.20 [facility] Comment on above: Performed By: #### A PTT #### S PATHOLOGY LABORATORY [address], [place], WBC (Bld) [#/Vol] 8.6 10*3/uL Normal 4.5-11.5 [facility] Comment on above: Performed By: #### A PTT #### S PATHOLOGY LABORATORY [address], [place], Care Plan Noteon 01-05-2021 Transfer And Line Up Worker Authentication Interface Message Text Problem: Discharge Planning: Goal: Discharge needs of the adult patient will be met Outcome: Not Progressing Problem: Routine Care: Goal: Patient care will be managed and maintained throughout hospital stay per unit specific routine care procedure Outcome: Progressing Intervention: Implement Routine Care CICU Procedure (continuous) Note: Patient care is managed per unit specific protocols. Problem: Alteration in Tissue Perfusion: Cardiac: Goal: Promote adequate perfusion and limit complications resulting from myocardial oxygen supply, demand and imbalance Outcome: Progressing Intervention: Monitor signs and symptoms of decreased cardiac output (ongoing) Note: Telemetry is being continuously monitored for dysrhythmias, assessing for pain and chest pain every shift and PRN. Daily labs monitored, electrolytes will be replaced as needed. Anticoagulation medications being administered as ordered. Problem: Alteration in Respiratory Status: Goal: Achieve Optimal Respiratory Status with Minimal Ventilatory/Oxygen Support Outcome: Progressing Intervention: Implement Oxygen Therapy (Adult) Procedure (continuous) Note: Assess pulse oxymetry as ordered. Continue to collaborate with respiratory therapy. Respiratory treatments as ordered. Will continue to assess per protocol. Problem: Fluid and Electrolyte Imbalance: Goal: Adequate fluid and electrolyte balance will be achieved and maintained Outcome: Progressing Intervention: Obtain and monitor laboratory values (per order) Note: Obtain and monitor lab values, monitor pt weight and signs of fluid overload Problem: VTE Prophylaxis: Goal: Will be free of DVT Outcome: Progressing Intervention: Initiate early ambulation (per order) Note: Encourage early ambulation when appropriate, anticoag meds as ordered. Problem: Acute Pain: Goal: Ability to identify pain intensity on a pain scale and rate it consistently will be achieved and maintained Outcome: Progressing Intervention: Encourage patient to report pain before it becomes intolerable (ongoing) Note: Patient pain assessed Q4H and PRN. Pain medication administered as ordered. Non pharmacological pain interventions used PRN. Goal: Understanding of proper administration and use of medicines will be achieved Outcome: Progressing Problem: Safety: Goal: Patient will remain free of falls during hospital stay Outcome: Progressing Goal: Free from injury during hospitalization Outcome: Progressing Intervention: Assess for risk related to falls using age appropriate scale (continuous) Note: Falls precautions maintained, no unsafe behavior noted Problem: Restraint: Goal: Remain safe while in restraints and once discontinued Outcome: Progressing Normal [facility] Consultson 01-05-2021 Transfer And Line Up Worker Authentication Interface Message Text Initial Adult Inpatient Nutrition Assessment Reason for Visit: intubated Nutrition Assessment: Admitting Diagnosis: CHF, resp failure COVID negative No past medical history on file. No past surgical history on file. is allergic to cephalexin and silver sulfadiazine. Nutritionally Significant Meds: lasix, humalog SS, KCl, fentanyl gtt, heparin gtt, propofol gtt (Currently @ 26.8 ml/hr) Labs: Basic Metabolic Panel Na K Cl CO2 Gap Glu BUN Cr Ca Mg PO4 01/05/21 1147 140 3.3 91 34 18 155 13 0.80 8.7 01/05/213 4.7 01/05/21 0223 140 2.7 89 34 20 142 15 0.90 8.9 01/04/21 1332 1.6 01/04/21 1332 139 3.0 89 35 18 97 15 0.92 9.6 CBC (last 3 years, up to 5 values) WBC RBC Hgb Hct MCV RDW Plt 01/05/21222 8.6 4.38 10.2 32.4 74 18.7 214 01/04/21 1332 7.6 4.47 10.2 33.2 74 18.6 213 LFT's (last 3 years, up to 5 values) T Prot Albumin D Bili T Bili Alk Phos ALT AST 01/04/21 1332 5.7 3.4 0.20 1.2 57 10 12 Accuchecks: Fingerstick Glucose (last 72 hours) Glucose 01/05/21 1221 163 01/05/21 0828 141 Comment: Notified RN JOSEPH DELGADO Follow Protocol 01/05/21 0644 155 01/04/21 2036 104 01/04/21 1634 96 01/04/21 1354 89 Component 01/04/2021 01/05/2021 01/05/2021 12:34 AM 6:08 AM Mode Vent Vent Vent FiO2% 60% 40% 40% pH 7.573 (H) 7.558 (H) 7.526 (H) PCO2 42.7 42.9 48.7 (H) pO2 92 94 91 Oxygen Saturation 98.4 98.4 97.5 Base Excess 15.4 (H) 14.2 (H) 15.2 (H) HCO3- (Bicarbonate) 40 (H) 38 (H) 40 (H) Vital sign ranges over the past 24 hours (retrieved 01/05/2021 at 3:41 PM): Tmax (24 hours): 98.9 ???F (37.2 ???C) Pulse Av.3 Min: 98 Max: 173 Systolic (24hrs), Av , Min:117 , Max:146 Diastolic (24hrs), Av, Min:64, Max:97 MAP (mmHg) Av mmHg Min: 84 mmHg Max: 110 mmHg Resp Av.8 Min: 14 Max: 53 SpO2 Av.8 % Min: 89 % Max: 100 % LastBM: 01/04 Diet Order: NPO Height: 5' 11 Admit Weight: 144.5 kg Current Weight: 144.3 kg IBW: 70.5 kg Current BMI: 44.37 Weight hx: Kg Lbs 01/04/2021 149 kg 328 lb 7.8 oz 01/05/2021 144.3 kg 318 lb 2 oz Nutrition Focused Physical Exam Muscle loss: none Fat loss: none Edema: BLE +2 pitting, BUE, abdomen, pedal +1 pitting Hair/Nails/Skin: buttock pressure injury x2 Eyes/Nose/Mouth: OGT, ETT Estimated needs: 0358-7334 kcal/d 14-17 kcal/kg (PSU = 1967 Kcal/d) - current wt 105-140 g pro/d 1.5-2.0 g pro/kg - IBW Assessment: 65 yo female with a pmhx of COPD requiring baseline 3L NC, Hx of DVT, Paroxysmal vs longstanding persistent afib, 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 Started on lasix. Pt with 2 pressure injuries on buttock - WOCN consult is pending. If pt with stage 3 or 4 pressure ulcer, recommend wound healing vitamins. K replaced today. Mg high today - was supplemented yesterday. Remains intubated and sedated at this time. On propofol which is currently providing ~710 kcal/d. Recommendations below if able to start tube feeds while intubated. Adjust TF rate as needed based on propofol rate. No weight hx available. Has adequate muscle and adipose stores upon physical exam. Nutrition Problems: Intubated Nutrition Interventions: -Begin tube feeds as medically able while intubated: If Propofol >20 ml/hr: Impact Peptide 1.5 @ 20 mL/hr increasing by 10 mL q 4 hrs until goal of 40 mL/hr continuously (Provides: 960 mL, 1440 kcal, 90 g protein) Also order Liquacel BID (provides 100 kcal, 16 g pro per serv) If Propofol < 20 ml/hr: Impact Peptide 1.5 @ 15 mL/hr increasing by 10 mL q 4 hrs until goal of 50 mL/hr continuously (Provides: 1200 mL, 1800 kcal, 113 g protein) Also order Liquacel once daily -Fluid management per team -Consider checking TG level while on propofol -If extubated, perform swallow eval. Advance towards 2 Gm Na diet with boost plus TID as able -If pt with stage 3 or 4 pressure ulcer, Begin wound healing vitamins: 220 mg Zinc Sulfate daily x 14 days (please include end date) Renal MV vs cerovite 15 ml daily Brianna Alexander, RD, LD Personal Pager [phone] Podiatric Medicine Professor Pager [phone] Normal [facility] GLUCOSE, FINGERSTICK-IN OFFI CEon 01-05-2021 Glucose [Mass/Vol] 131 mg/dL High 80-116 [facility] Comment on above: Performed By: #### C OVID19 #### [facility] [address] [place], [address] Glucose [Mass/Vol] 136 mg/dL High 80-116 [facility] Comment on above: Result Comment: Colton duvall RN, APN, MD Performed By: #### A PTT #### [facility] [address] [place], [place], Glucose [Mass/Vol] 163 mg/dL High 80-116 [facility] Comment on above: Performed By: #### 8 [id number] #### NURSING GLUCOSE PROGRAM [address] [place], [address] Glucose [Mass/Vol] 141 mg/dL High 80-116 [facility] Comment on above: Result Comment: Colton duvall RN, APN, MD Performed By: #### 8 2948 ####NURSING GLUCOSE [id number] [place], [address] Glucose [Mass/Vol] 155 mg/dL High 80-116 [facility] Comment on above: Performed By: #### 8 2948 #### NURSING GLUCOSE PROGRAM [address] [place], [address] MAGNESIUMon 01-05-2021 Magnesium [Mass/Vol] 4.7 mg/dL High 1.6-2.8 [facility] Comment on above: Performed By: #### 8 2948 #### NURSING GLUCOSE PROGRAM [address] [place], [address] Progress Noteson 01-05-2021 Transfer And Line Up Worker Authentication Interface Message Text SW aware that staff from pt's SNF have contacted [facility] dept at [facility]. SANTOSH received message from Sharon with [facility] ([phone]/) requesting updates re: pt's admission. SANTOSH made return PC to Sharon and left requesting a return call. SW will continue to follow. ADDENDUM 14:36- SW received a return call from Sharon with [facility]. Per Sharon, pt has HCPOA assigned. Pt's HCPOA is her sister, Eva Izquierdo ([phone]). Pt's SSN is [id number]. Facility requires a negative COVID test within 48 hrs of pt's return. Pt will not require a pre-cert and is under a Medicaid bed hold at the facility. Analisa Ervin, DRAGLINE MECHANIC, SUPERVISOR METAL FABRICATING Inpatient Supervisor Network Control Operators Normal [facility] BASIC METABOLIC PANELon 12-26 Anion gap [Moles/Vol] 18 mmol/L High 5-13 [facility] Comment on above: Performed By: #### C OVID19 #### S PATHOLOGY LABORATORY [address] [place] [address], Calcium [Mass/Vol] 9.6 mg/dL Normal 8.4-10.4 [facility] Comment on above: Performed By: #### C OVID19 #### S PATHOLOGY LABORATORY [address] [place] [address], Chloride [Moles/Vol] 89 mmol/L Low 97-111 [facility] Comment on above: Performed By: #### C OVID19 #### S PATHOLOGY LABORATORY [address] [place] [address], CO2 [Moles/Vol] 35 mmol/L High 21-30 [facility] Comment on above: Performed By: #### C OVID19 #### [facility] [address] [place] [address], Creatinine [Mass/Vol] 0.92 mg/dL Normal 0.50-1.10 [facility] Comment on above: Performed By: #### C OVID19 #### [facility] [address] [place] [address], ESTIMATED GFR (CKD-EPI) 66 mL/min/1.73sqm Normal >=60 [facility] Comment on above: Performed By: #### C OVID19 #### [facility] [address] [place] [address], Glucose [Mass/Vol] 97 mg/dL Normal 80-116 [facility] Comment on above: Performed By: #### C OVID19 #### S PATHOLOGY LABORATORY [address] [place] [address], Potassium [Moles/Vol] 3.0 mmol/L Low 3.3-5.3 [facility] Comment on above: Performed By: #### C OVID19 #### S PATHOLOGY LABORATORY [address] [place] [address], Sodium [Moles/Vol] 139 mmol/L Normal 135-148 [facility] Comment on above: Performed By: #### C OVID19 #### [facility] [address] [place] [address], Urea nitrogen [Mass/Vol] 15 mg/dL Normal 8-22 [facility] Comment on above: Performed By: #### C OVID19 #### [facility] [address] [place] [address], BLOOD GAS, ARTERIALon 2020 CR PETER 15.4 mmol/L High -2.0-2.0 [facility] Comment on above: Performed By: #### C R BGA #### [facility] [address] [place] [address], CR PCO2 42.7 mm Hg Normal 35.0-45.0 [facility] Comment on above: Performed By: #### C R BGA #### [facility] [address] [place] [address], CR PHA 7.573 High 7.35-7.45 [facility] Comment on above: Performed By: #### C R BGA #### S PATHOLOGY LABORATORY [address] [place] [address], CR PO2 92 mm Hg Normal 80-100 [facility] Comment on above: Performed By: #### C R BGA #### S PATHOLOGY LABORATORY [address] [place] [address], FIO2 (CATEGORY) 60% Normal [facility] Comment on above: Performed By: #### C R BGA #### S PATHOLOGY LABORATORY [address] [place] [address], HCO3 (Bld) [Moles/Vol] 40 mmol/L High 22-28 [facility] Comment on above: Performed By: #### C R BGA #### [facility] [address] [place] [address], MODE Vent Normal [facility] Comment on above: Performed By: #### C R BGA #### [facility] [address] [place] [address], Oxygen saturation in Blood 98.4 % Normal >=95.1 [facility] Comment on above: Performed By: #### C R BGA #### [facility] [address] [place] [address], CBC WITH DIFFERENTIALon 12-26 Basophils (Bld) [#/Vol] 0.05 10*3/uL Normal 0.00-0.20 [facility] Comment on above: Performed By: #### C BCDSAT ####[facility] PATHOLOGY [id number] [place] [address], Basophils/100 WBC (Bld) 0.6 % Normal <=1.9 [facility] Comment on above: Performed By: #### C BCDSAT ####[facility] PATHOLOGY [id number] [place] [address], Eosinophils (Bld) [#/Vol] 0.15 10*3/uL Normal 0.00-0.70 [facility] Comment on above: Performed By: #### C BCDSAT ####[facility] PATHOLOGY [id number] [place] [address], Eosinophils/100 WBC (Bld) 2.0 % Normal 0.1-4.0 [facility] Comment on above: Performed By: #### C BCDSAT ####[facility] PATHOLOGY [id number] [place] [address], Erythrocyte distribution width (RBC) [Ratio] 18.6 % High 11.5-14.5 [facility] Comment on above: Performed By: #### C BCDSAT ####[facility] PATHOLOGY [id number] [place] [address], Hematocrit (Bld) [Volume fraction] 33.2 % Low 36.0-46.0 [facility] Comment on above: Performed By: #### C BCDSAT ####[facility] PATHOLOGY [id number] [place] [address], Hemoglobin (Bld) [Mass/Vol] 10.2 g/dL Low 12.0-15.0 [facility] Comment on above: Performed By: #### C BCDSAT ####[facility] PATHOLOGY [id number] [place] [address], Lymphocytes (Bld) [#/Vol] 0.99 10*3/uL Low 1.00-4.80 [facility] Comment on above: Performed By: #### C BCDSAT ####[facility] PATHOLOGY [id number] [place] [address], Lymphocytes/100 WBC (Bld) 13.0 % Low 24.0-44.0 [facility] Comment on above: Performed By: #### C BCDSAT ####[facility] PATHOLOGY [id number] [place] [address], MCH (RBC) [Entitic mass] 22.9 pg Low 26.0-34.0 [facility] Comment on above: Performed By: #### C BCDSAT ####[facility] PATHOLOGY [id number] [place] [address], MCHC (RBC) [Mass/Vol] 30.8 g/dL Low 32.0-35.9 [facility] Comment on above: Performed By: #### C BCDSAT ####[facility] PATHOLOGY [id number] [place], [place], MCV (RBC) [Entitic vol] 74 fL Low 80-100 [facility] Comment on above: Performed By: #### C BCDSAT ####[facility] PATHOLOGY [id number] [place] [address], MONOCYTE DISTRIBUTION WIDTH Normal [facility] Comment on above: Performed By: #### C BCDSAT ####[facility] PATHOLOGY [id number] [place], [place], Monocytes (Bld) [#/Vol] 0.60 10*3/uL Normal 0.20-1.00 [facility] Comment on above: Performed By: #### C BCDSAT ####[facility] PATHOLOGY [id number] [place], [place], Monocytes/100 WBC (Bld) 7.9 % Normal 2.0-11.0 [facility] Comment on above: Performed By: #### C BCDSAT ####[facility] PATHOLOGY [id number] [place], [place], Neutrophils (Bld) [#/Vol] 5.81 10*3/uL Normal 1.50-8.00 [facility] Comment on above: Performed By: #### C BCDSAT ####[facility] PATHOLOGY [id number] [place] [address], Neutrophils/100 WBC (Bld) 76.5 % High 31.0-76.0 [facility] Comment on above: Performed By: #### C BCDSAT ####[facility] PATHOLOGY [id number] [place], [place], Platelet mean volume (Bld) [Entitic vol] 7.1 fL Low 7.5-11.2 [facility] Comment on above: Performed By: #### C BCDSAT ####[facility] PATHOLOGY [id number] [place], [place], Platelets (Bld) [#/Vol] 213 10*3/uL Normal 150-400 [facility] Comment on above: Performed By: #### C BCDSAT ####[facility] PATHOLOG[facility] [id number] [place], RBC (Bld) [#/Vol] 4.47 10*6/uL Normal 4.00-5.20 [facility] Comment on above: Performed By: #### C BCDSAT ####[facility] PATHOLOGY [id number] [place], [place], WBC (Bld) [#/Vol] 7.6 10*3/uL Normal 4.5-11.5 [facility] Comment on above: Performed By: #### C BCDSAT ####[facility] [id number] [place], [address] Care Plan Noteon 01-04-2021 Transfer And Line Up Worker Authentication Interface Message Text Problem: Discharge Planning: Goal: Discharge needs of the adult patient will be met Outcome: Not Progressing Note: No discharge indicated at this time. Patient will be included in plan of care, as well as discharging planning when appropriate. Interdisciplinary team collaboration. Patient will be educated on cardiac diet, activity, medications, and medication compliance. Follow-up appointments made. Problem: Routine Care: Goal: Patient care will be managed and maintained throughout hospital stay per unit specific routine care procedure Outcome: Progressing Note: Patient on continuous cardiac telemetry monitoring. Patient assessed Q4 hours by RN. Vitals performed Q1H hours. Strict I/O's. Daily weight. Problem: Alteration in Tissue Perfusion: Cardiac: Goal: Promote adequate perfusion and limit complications resulting from myocardial oxygen supply, demand and imbalance Outcome: Progressing Note: Patient is on continuous cardiac telemetry and pulse oximetry monitoring. Vitals signs Q1H. Full head to toe assessment by RN Q4 hours. Problem: Alteration in Respiratory Status: Goal: Achieve Optimal Respiratory Status with Minimal Ventilatory/Oxygen Support Outcome: Progressing Note: Patient is on continuous cardiac telemetry and pulse oximetry monitoring. Vitals signs Q1H. Full head to toe assessment by RN Q4 hours. Problem: Fluid and Electrolyte Imbalance: Goal: Adequate fluid and electrolyte balance will be achieved and maintained Outcome: Progressing Note: Daily BMP and Mg per CICU protocol. Electrolyte replacement performed per physician order. Strict I/O's. Daily weight. Fluid restriction per physician order. Problem: VTE Prophylaxis: Goal: Will be free of DVT Outcome: Progressing Note: Frequent ambulation encouraged. OOB to chair with meals encouraged. Patient educated on use of SCD's. SCD use while in bed encouraged. Anticoagulation medication as ordered by physician. Problem: Acute Pain: Goal: Ability to identify pain intensity on a pain scale and rate it consistently will be achieved and maintained Outcome: Progressing Note: nonverbal pain scale used with assessments Q4 hours. Medications administered PRN as ordered by physician. Pre and post pain scale performed for medication administration. Goal: Understanding of proper administration and use of medicines will be achieved Outcome: Progressing Problem: Safety: Goal: Patient will remain free of falls during hospital stay Outcome: Progressing Note: Fall precautions in place including yellow wrist band, yellow non-skid socks, and door sign. Bed in low locked position. Two patient identifiers utilized. Goal: Free from injury during hospitalization Outcome: Progressing Normal [facility] GLUCOSE, FINGERSTICK-IN OFFI CEon 01-04-2021 Glucose [Mass/Vol] 104 mg/dL Normal 80-116 [facility] Comment on above: Performed By: #### A PTT #### [facility] [address] [place], [place], Glucose [Mass/Vol] 96 mg/dL Normal 80-116 [facility] Comment on above: Performed By: #### [id number] #### NURSING GLUCOSE PROGRAM [address] [place], [address] Glucose [Mass/Vol] 89 mg/dL Normal 80-116 [facility] Comment on above: Performed By: #### C OVID19 #### [facility] [address] [place], [place], H AND Hemanth 01-04-2021 Transfer And Line Up Worker Authentication Interface Message Text Attestation signed by Andriy Lucas MD at 01/05/2021 2:24 PM Attending/Teaching Physician Attestation Note: I saw and evaluated the patient and personally obtained goldman elements of the history, physical examination, labs, and imaging. I reviewed the resident/fellow's documentation and discussed the patient with the resident/fellow. I agree with the resident/fellow's medical decision making as documented in the resident/fellow's note. Andriy Lucas MD, MS. Cardiology, Advanced Heart Failure and Transplantation Provider ID: [id number] CICU History and Physical Alexa Izquierdo 65 year old 0 lbs MRN/Room: [id number] Admit Date: 01/04/2021 : 1955 Code Status: Full Code Source of Information: Prior documentation, Nursing staff from Reason for admission: Acute hypoxemic hypercapnic respiratory failure of unknown etiology Subjective History of Present Illness: Ms. 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 Patient presented Intubated and Sedated and thus HPI is obtained from prior documentation and discussion with nurse at SNF. As per nursing staff, patient was complaining of shortness of breath and difficulty breathing over the last couple of days. They attempted to get patient to wear her BiPAP, however the patient continually refused. They noted several low Oxygen saturations and discussed being sent to the ED before yesterday, but patient refused. Last night, patient was saturating in the 70s and was somnolent and thus she was taken to the ED for evaluation. Upon arrival patient was placed on BiPAP and subsequently intubated due to acute hypoxia. Initial ABG demonstrated pH 7.47, CO2 64, Bicarb 47 and 51% O2 saturation. CXR demonstrated pulmonary congestion with possible bilateral opacities consistent with infections vs atelectasis. She was initiated on Vancomycin and Azithromycin as she has an allergy to Cephalexin. EKG demonstrated atrial fibrillation without ischemic changes. Troponin was negative at less than 0.03. Labs were grossly WNL with the exception of mild chronic microcytic anemia with Hb 10.2, aPTT 42, PT 20.5, and INR 1.8 (on Apixaban). Patient was given Versed, Propofol, Fentanyl, Etomidate and intubated. A total of 100 mg IV Lasix ws given. UA demonstrated Large RBC, RBC casts and > 1,000 glucose, however the serum glucose was 115. Patient was then transferred to [facility] due to current location being at full capacity. Patient has been hemodynamically stable and is still intubated. Of note, patient did have CAP and completed a full course of antibiotics 3-4 weeks ago without residual complications. She has a significant history for multiple hospitalizations for COPD exacerbations and usually does well once she utilizes her BiPAP, as per nursing staff at facility. ED Course: Triage vitals: BP: 128/102, HR 103 in afib, RR 22, SpO2 99% mechanical ventilation Labs: BMP: 146/4.1/96/40/17/0.60 Glucose: 110 CBC: WBC 9.6, Hb 10.2 Digoxin level: 0.60 Imaging: CXR demonstrated pulmonary congestion with bilateral lower lobe opacities concerning for pneumonia vs atelectasis EKG - Atrial fibrillation with normal ventricular response. No ischemic changes present. Interventions: IV Furosemide 100 mg IV Vancomycin and Azithromycin Endotracheal intubation Monique catheter insertion ROS Social history: Social History Tobacco Use * Smoking status: Not on file Substance Use Topics * Alcohol use: Not on file * Drug use: Not on file Past medical history: No past medical history on file. Past surgical history: There is no previous surgical history on file. Past family history: No family history on file. Allergies: Allergies Allergen Reactions * Cephalexin * Silver Sulfadiazine Medications Home cardiac meds: Apixaban 5 mg BID Diltiazem 360 mg daily Furosemide 40 mg PO daily Current Meds: * heparin (porcine) 8,000 Units STAT * aztreonam orderable 2,000 mg Q8H Antibiotic * azithromycin orderable 500 mg Q24H Antibiotic * albuterol 4 Puff Every 2 hours * [MAR Hold] albuterol 2.5 mg Every 2 hours * chlorhexidine oral care kit with toothette 1 Applicator EVERY 12 HOURS * heparin (porcine) * propofol 30 mcg/kg/min (01/04/21 1313) * heparin (porcine) 40-80 Units/kg Q6H PRN * vancomycin dosing pharmacy consult As Directed (more content not included)... Normal [facility] HEPATIC FUNCTION PANELon Albumin [Mass/Vol] 3.4 g/dL Normal 3.4-5.1 [facility] Comment on above: Performed By: #### C OVID19 #### [facility] [address] [place] [address], ALK 57 IU/L Normal 40-200 [facility] Comment on above: Performed By: #### C OVID19 #### [facility] [address] [place], [place], ALT [Catalytic activity/Vol] 10 U/L Normal 7-40 [facility] Comment on above: Performed By: #### C OVID19 #### [facility] [address] [place] [address], AST [Catalytic activity/Vol] 12 U/L Normal 7-40 [facility] Comment on above: Performed By: #### C OVID19 #### [facility] [address] [place] [address], Bilirubin [Mass/Vol] 1.2 mg/dL Normal 0.1-1.5 [facility] Comment on above: Performed By: #### C OVID19 #### [facility] [address] [place] [address], Bilirubin.direct [Mass/Vol] 0.20 mg/dL Normal 0.10-0.30 [facility] Comment on above: Performed By: #### C OVID19 #### [facility] [address] [place] [address], Protein [Mass/Vol] 5.7 g/dL Normal 5.7-8.1 [facility] Comment on above: Performed By: #### C OVID19 #### [facility] [address] [place] [address], MAGNESIUMon 01-04-2021 Magnesium [Mass/Vol] 1.6 mg/dL Normal 1.6-2.8 [facility] Comment on above: Performed By: #### C OVID19 #### [facility] [address] [place], [place], MRSA SCREENon 01-04-2021 MRSA DNA PARISH+probe Ql (Unsp spec) CMR: No methicillin resistant Staphylococcus aureus isolated. Normal No methicillin resistant Staphylococcus aureus isolated. [facility] Comment on above: Performed By: #### C MR #### [facility] [address] [place], [place] PARTIAL THROMBOPLASTIN TIMEo n 01-04-2021 aPTT Coag (Bld) [Time] 58 s High 25-37 [facility] Comment on above: Performed By: #### A PTT #### [facility] [address] [place], [place], aPTT Coag (Bld) [Time] 36 s Normal 25-37 [facility] Comment on above: Performed By: #### A PTT ####[facility] [id number] [place], [place], PROCALCITONINon 01-04-2021 PROCALCITONIN 0.09 ng/mL Normal <0.50 [facility] Comment on above: Result Comment: Proc alcitonin Concentrations < 0.50 ng/mL = Low Risk of severe sepsis and/or septic shock Procalcitonin Concentrations > 2.00 ng/mL = High Risk of severe sepsis and/or septic shock Concentrations under 0.50 ng/mL do not exclude local infections or systemic infections in their initial stages (e.g. under six hours from onset of illness). Procalcitonin concentrations between 0.50 and 2.00 ng/mL should be interpreted with consideration of the patient's history. In this range, it is recommended to retest Procalcitonin within 6 to 24 hours. Performed By: #### C OVID19 #### [facility] [address] [place], [place], Procedureson 01-04-2021 Transfer And Line Up Worker Authentication Interface Message Text Transthoracic Echocardiographic Report Name: FELECIA BARRON Interpreting CHERYL CHUNG MD Physician: : 1955 Referring ANDRIY LUCAS Physician: Age: 65 Staple Cutter: Rosalie Diamond RDCS Exam Date: 01/04/2021 Fellow: BOBO BOYLE MD 02:13 PM CVT: PCP: Gender: Female Height 180.34 cm Weight 144.2448 kg Encounter #: BSA 2.57 m2 Study CCU BMI 44.35 kg/m2 Location: Technical Fair Quality: Type of Study: TTE procedure: 2D echocardiogram, M-Mode, Doppler , Color Doppler, Contrast study. Indications for Study:Congestive heart failure. Tech. Comments Patient's preferred language is unable to be determined due to patient being intubated. . Patient unable to provide ID or confirm test being done. Armband ID verified. The patient was unable to provide verbal consent however the ordering and reporting attendings felt the benefit/risk evaluation strongly favored left heart contrast administration. Administration of 1 dose(s) of 1.5 ml of Definity diluted to 8.5 ml of saline was administered by Alie [facility] Supine BP: 130/67 mmHg Patient Status: Routine Contrast Medium: Definity. Left Ventricle Value Normal Value Normal LVIDd: 5.9 cm <5.7 cm Post. Wall 1.3 cm <1.2 cm Thickness: Septum 1.2 cm <1.2 cm LV FS: 10.17 % 30-40% Diastolic: Systolic 5.3 cm <4 cm LV Mass 389.22g Dimension: LV Mass Index: 151 g/m2 <110 Women<120 Men Right Cavities Ventricle Atrium RV (apical 4): 3.2 cm <4.3 cm RA (apical 4): 3.6 cm <4.6 cm Vessels Sinus of 3.7cm Valsalva: Findings/Conclusions Chambers LV Left ventricular systolic function is moderately globally reduced. The left ventricular ejection fraction (LVEF) is 40% +/- 5%by the triplane summation of disc (Valiente's rule) method. The left ventricle is dilated. Left ventricular hypertrophy is present. The hypertrophy is eccentric. LA The left atrial size is severely increased. The left atrial volume index is 60 mL/m2 (normal: <35 mL/m2, mild: 35-41 mL/m2, moderate: 42-48 mL/m2, severe: >48 mL/m2). RV Normal right ventricular size Right ventricular function is mildly-moderately globally reduced. The percent area shortening is 30 (normal >35%). RA Normal right atrium. Valves AV Normal aortic valve. There is trivial aortic regurgitation. MV There is mild mitral regurgitation. TV Normal tricuspid valve. There is physiologic tricuspid regurgitation. PV Normal pulmonic valve. Great Vessels Normal sinus of Valsalva. Pericardium/Pleura No evidence of a pericardial effusion. Hemodynamics Estimated pulmonary artery systolic pressure is 37 mmHg +/- 5 mmHg. (Upper normal is <40 mmHg). Estimated RA pressure is 15 mmHg. The cardiac index is normal at 3 L/min/m2 (normal is 2.5 to 4.3 L/min/m2: D lvot = 2.2 cm, TVI lvot = 19 cm, HR = 107 bpm). Miscellaneous No evidence of a thrombus in the left ventricular apex. Summary Left ventricular systolic function is moderately globally reduced. The left ventricular ejection fraction (LVEF) is 40% +/- 5% Eccentric left ventricular hypertrophy is present. Right ventricular function is mildly-moderately globally reduced. Dilated left ventricle, left atrium. There is mild mitral regurgitation. Noninvasive hemodynamic assessment is consistent with normal pulmonary artery systolic pressure, an elevated CVP, a normal cardiac output. See above for further details. Authenticated by: Normal [facility] Progress Noteson 01-04-2021 Transfer And Line Up Worker Authentication Interface Message Text Pharmacokinetic Dosing Service - VANCOMYCIN Initial Dosing Note Name: Alexa Izquierdo Age:[age] year old Gender: female Ht: 5' 11 Wt: 144.5 kg Indication: Pneumonia Desired Ranges: 15-20 Day of therapy: 1 Assessment and Recommendations: No loading dose of vancomycin is recommended. Maintenance dosing of vancomycin 2000 mg every 12 hours is recommended and has been ordered. A vancomycin level is due before the 4th dose. Pharmacy will post notes for trough levels upon return and for dose changes. The medication regimen has been updated per consult agreement procedures. Current Dose Active Vancomycin Orders (From admission, onward) Start Stop 01/04/21 1530 vancomycin (VANCOCIN) 2000 mg in iso-tonic danny'n 400 mL 2,000 mg, Intravenous, EVERY 12 HOURS Question: Suspected Source/Reason for Therapy Answer: Pneumonia (lung) -- Lab Values: Creatinine Date Value Ref Range Status 01/04/2021 0.92 0.50 - 1.10 mg/dL Final No results found for: VANCTR Lab Results Component Value Date/Time VANCR 9.0 01/04/2021 01:32 PM Serum creatinine: 0.92 mg/dL 01/04/21 1332 Estimated creatinine clearance: 99.1 mL/min Culture(s): PENDING oDn [facility] - Department of Pharmacy Services Normal [facility] VANCOMYCIN RANDOMon 01-05-20 21 VANC R 9.0 ug/mL Normal 5.0-40.0 [facility] Comment on above: Performed By: #### C OVID19 #### [facility] [address] [place], [address] XR CHEST 1 VIEW AP OR PAon 0 01-04-2021 XR CHEST 1 VIEW AP OR PA EXAMINATION: XR CHEST 1 VIEW AP OR PA 01/04/2021 04:08 PM CLINICAL HISTORY: Reason for Exam: Endotracheal tube assessment; Heart failure suspected ASSOCIATED DIAGNOSIS: Endotracheal tube assessment Heart failure suspected TECHNOLOGISTS NOTE: COMPARISON: 810 FINDINGS: Lines, tubes, and devices: Endotracheal tube is 3.5 cm above the tracheal bifurcation. NG tube extends in the stomach. The tip is outside the dxtet-it-qecn Lungs and pleura: Bilateral pulmonary congestive changes are noted with underlying chronic interstitial disease. Pleural effusions are noted in the bases with findings are suggestive of cardiac decompensation and fluid overload. Baseline interstitial edema is considered. Continued follow-up exam is recommended. Increased opacities noted in the left base secondary to partial loss of volume consolidation and pleural effusion. Coexisting pneumonia in the left lower lobe is not excluded. Cardiomediastinal silhouette: Cardiomegaly is unchanged. Musculoskeletal: Unremarkable. IMPRESSION: 1. Cardiomegaly with pulmonary congestive changes and interstitial edema. 2. Basilar pleural effusions with consolidation and partial atelectasis in the left lower lobe. 3. Lines and tubes as discussed. Continued follow-up exam is recommended. MACRO: None Normal [facility] Basic Metabolic Panelon 06-2 Calcium [Mass/Vol] 9.5 mg/dL Normal 8.2-10.2 [facility] Comment on above: Result Comment: PERF ORMED BY: [facility] [address] [place] [address] PATHOLOGIST CONTRACT ADMINISTRATIVE ASSISTANT ADELAIDE ESTRADA M.D. Performed By: #### B MP #### [facility] [address] [place] [address] [facility] Chloride [Moles/Vol] 88 mmol/L Low 95-114 [facility] Comment on above: Performed By: #### B MP #### [facility] [address] CO2 [Moles/Vol] 34.6 mmol/L High 22.0-30.0 [facility] Comment on above: Performed By: #### B MP #### [facility] [address] Creatinine [Mass/Vol] 0.75 mg/dL Normal 0.44-1.03 [facility] Comment on above: Performed By: #### B MP #### [facility] [address] Estimated GFR ( Kamla > 60 Normal [facility] Comment on above: Result Comment: GFR estimated reference range: According to KDOQI guidelines, <60 ml/min/1.73m2 is sufficient to diagnose a patient with chronic kidney disease. Performed By: #### B MP #### [address] Estimated GFR (Non- Am > 60 [facility] Comment on above: Performed By: #### B MP #### [place] [address] [place] Glucose [Mass/Vol] 257 mg/dL High 70-100 [facility] Comment on above: Result Comment: [place] om Glucose Reference Range is dependent on time and content of last meal. Glucose of more than 200 mg/dL in a nonstressed, ambulatory subject supports the diagnosis of Diabetes Mellitus. ADA recommended reference range Performed By: #### B MP #### [place] [address] [place] Potassium [Moles/Vol] 4.0 mmol/L Normal 3.5-5.1 [facility] Comment on above: Performed By: #### B MP #### [address] Sodium [Moles/Vol] 138 mmol/L Normal 136-146 [facility] Comment on above: Performed By: #### B MP #### [place] [address] [place] Urea nitrogen [Mass/Vol] 23 mg/dL Normal 9-23 [facility] Comment on above: Performed By: #### B MP #### [address] B-Type Natriuretic Peptideon 11-04-2020 Natriuretic peptide B (Bld) [Mass/Vol] 130.0 pg/mL High 5-100 [facility] Comment on above: Order Comment: PLEAS E FAX TO Result Comment: PERF ORMED BY: [place] [address] PATHOLOGIST CONTRACT ADMINISTRATIVE ASSISTANT ADELAIDE ESTRADA M.D. Performed By: #### B TYRE FITTER #### [address] Complete Blood Count Auto Di ffon 11-04-2020 Basophils (Bld) [#/Vol] 0.1 10*3/uL Normal 0.0-0.2 [facility] Comment on above: Order Comment: PLEAS E FAX TO Result Comment: PERF ORMED BY: [place] [address] PATHOLOGIST CONTRACT ADMINISTRATIVE ASSISTANT ADELAIDE ESTRADA M.D. Performed By: #### C BC, CMP #### [address] Basophils/100 WBC (Bld) 0.6 % Normal . [facility] Comment on above: Order Comment: PLEAS E FAX TO Performed By: #### C BC, CMP #### [place] [address] [place] Eosinophils (Bld) [#/Vol] 0.4 10*3/uL Normal 0.0-0.45 [facility] Comment on above: Order Comment: PLEAS E FAX TO Performed By: #### C BC, CMP #### [place] [address] [place] Eosinophils/100 WBC (Bld) 4.5 % Normal . [facility] Comment on above: Order Comment: PLEAS E FAX TO Performed By: #### C BC, CMP #### [facility] [address] [place] [address] Erythrocyte distribution width (RBC) [Ratio] 17.7 % High 11.9-15.3 [facility] Comment on above: Order Comment: PLEAS E FAX TO Performed By: #### C BC, CMP #### [address] Hematocrit (Bld) [Volume fraction] 33.1 % Low 34.0-46.4 [facility] Comment on above: Order Comment: PLEAS E FAX TO Performed By: #### C BC, CMP #### [address] Hemoglobin (Bld) [Mass/Vol] 10.1 g/dL Low 11.8-15.4 [facility] Comment on above: Order Comment: PLEAS E FAX TO Performed By: #### C BC, CMP #### [facility] [address] [place] [address] Lymphocytes (Bld) [#/Vol] 1.4 10*3/uL Normal 1.00-4.8 [facility] Comment on above: Order Comment: PLEAS E FAX TO Performed By: #### C BC, CMP #### [facility] [address] [place] [address] [place] Lymphocytes/100 WBC (Bld) 16.5 % Normal . [facility] Comment on above: Order Comment: PLEAS E FAX TO Performed By: #### C BC, CMP #### [facility] [address] [place] [address] MCH (RBC) [Entitic mass] 24.8 pg Normal 24.7-34.3 [facility] Comment on above: Order Comment: PLEAS E FAX TO Performed By: #### C BC, CMP #### [facility] [address] [place] [address] [place] MCV (RBC) [Entitic vol] 81.0 fL Normal 80-100 [facility] Comment on above: Order Comment: PLEAS E FAX TO Performed By: #### C BC, CMP #### [facility] [address] Mean Corpuscular HGB Conc 30.6 g/dL Low 32.0-35.0 [facility] Comment on above: Order Comment: PLEAS E FAX TO Performed By: #### C BC, CMP #### [facility] [address] [place] [address] [place] Monocytes (Bld) [#/Vol] 0.5 10*3/uL Normal 0.0-0.8 [facility] Comment on above: Order Comment: PLEAS E FAX TO Performed By: #### C BC, CMP #### [place] [address] [place] Monocytes/100 WBC (Bld) 6.6 % Normal . [facility] Comment on above: Order Comment: PLEAS E FAX TO Performed By: #### C BC, CMP #### [facility] [address] [place] [address] [place] Neutrophils (Bld) [#/Vol] 5.9 10*3/uL Normal 1.8-7.7 [facility] Comment on above: Order Comment: PLEAS E FAX TO Performed By: #### C BC, CMP #### [facility] [address] [place] [address] [place] Neutrophils/100 WBC (Bld) 71.8 % Normal . [facility] Comment on above: Order Comment: PLEAS E FAX TO Performed By: #### C BC, CMP #### [place] [address] [place] Nucleated RBC/100 WBC (Bld) [Ratio] 0.1 % Normal 0-0.5 [facility] Comment on above: Order Comment: PLEAS E FAX TO Performed By: #### C TREVOR, CMP #### [facility] [address] Platelet mean volume (Bld) [Entitic vol] 7.6 fL Normal 6.3-10.7 [facility] Comment on above: Order Comment: PLEAS E FAX TO Performed By: #### C BC, CMP #### [facility] [address] Platelets (Bld) [#/Vol] 184 10*3/uL Normal 150-450 [facility] Comment on above: Order Comment: PLEAS E FAX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 However, the narrative phrase printed from the coding software may appear abbreviated, or result in slightly different terminology. Coded By: Eva Carrillo CphT Date Saved: 07/11/2019 10:43 am Normal [facility] Vital Signs Date Time Vital Sign Value Performing Clinician Yaa noriega 05-02-2024 19:03-0500 Diastolic blood pressure 59 mm[Hg] [employer] DO [facility] Phone[email or web address] 05-02-2024 19:03-0500 Heart rate 96 /min BraydenClean Wave [employer]ng DO [facility] Phone: [facility] 05-02-2024 19:03-0500 Respiratory rate 20 /min BraydenCore [employer] DO Work Phone: [facility] [employer] [facility] 05-02-2024 19:03-0500 SaO2% (BldA) [Mass fraction] 93 % myAchyng DO Work Phone: [facility] [employer] [facility] 05-02-2024 19:03-0500 Systolic blood pressure 104 mm[Hg] Brayden [employer] DO Work Phone: [facility] 04-16-2024 21:46-0500 Body mass index (BMI) [Ratio] 35.44 kg/m2 Brayden Furlong DO Work Phone: [facility] [employer] [facility] 04-16-2024 21:46-0500 Body weight 115.21 kg Brayden Furlong DO Work Phone: [facility] 04-16-2024 21:46-0500 Diastolic blood pressure 74 mm[Hg] Brayden Furlong DO Work Phone: [facility] 04-16-2024 21:46-0500 Heart rate 96 /min Brayden Furlong DO Work Phone: [facility] 04-16-2024 21:46-0500 Respiratory rate 22 /min Brayden Furlong DO Work Phone: [facility] 04-16-2024 21:46-0500 SaO2% (BldA) [Mass fraction] 96 % Brayden Furlong DO Work Phone: [facility] 04-16-2024 21:46-0500 Systolic blood pressure 114 mm[Hg] Brayden Furlong DO Work Phone: [facility] 03-07-2024 19:11-0400 Body mass index (BMI) [Ratio] 35.3 kg/m2 Brayden Furlong DO Work Phone: [facility] 03-07-2024 19:11-0400 Body weight 114.76 kg Brayden Furlong DO Work Phone: [facility] 03-07-2024 19:11-0400 Diastolic blood pressure 69 mm[Hg] Brayden Furlong DO Work Phone: [facility] 03-07-2024 19:11-0400 Heart rate 80 /min Brayden Furlong DO Work Phone: [facility] 03-07-2024 19:11-0400 SaO2% (BldA) [Mass fraction] 95 % Brayden Furlong DO Work Phone: [facility] [employer] [facility] 03-07-2024 19:11-0400 Systolic blood pressure 134 mm[Hg] Brayden Furlong DO Work Phone: [facility] [employer] [facility] 08-31-2023 22:54-0400 Diastolic blood pressure 60 mm[Hg] Brayden Furlong DO Work Phone: [facility] [employer] [facility] 08-31-2023 22:54-0400 Heart rate 74 /min Brayden Furlong DO Work Phone: [facility] [employer] [facility] 08-31-2023 22:54-0400 Systolic blood pressure 90 mm[Hg] Brayden Furlong DO Work Phone: [facility] [employer] [facility] 07-27-2023 17:38-0500 Body mass index (BMI) [Ratio] 35.27 kg/m2 Brayden Furlong DO Work Phone: [facility] [employer] [facility] 07-27-2023 17:38-0500 Body temperature 98.1 [degF] Brayden Furlong DO Work Phone: [facility] [employer] 07-27-2023 17:38-0500 Body weight 114.67 kg Brayden Furlong DO Work Phone: [facility] [employer] 07-27-2023 17:38-0500 Diastolic blood pressure 62 mm[Hg] Brayden Furlong DO Work Phone: [facility] [employer] [facility] 07-27-2023 17:38-0500 Heart rate 76 /min Brayden Furlong DO Work Phone: [facility] [employer] 07-27-2023 17:38-0500 Respiratory rate 18 /min Brayden Furlong DO Work Phone: [facility] [employer] [facility] 07-27-2023 17:38-0500 SaO2% (BldA) [Mass fraction] 94 % Brayden Furlong DO Work Phone: [facility] 07-27-2023 17:38-0500 Systolic blood pressure 118 mm[Hg] Brayden Furlong DO Work Phone: [email or web address] 06-27-2023 18:50-0500 Diastolic blood pressure 68 mm[Hg] Brayden Furlong DO Work Phone: [email or web address] 06-27-2023 18:50-0500 Heart rate 84 /min Brayden Furlong DO [facility]: [facility] 06-27-2023 18:50-0500 Systolic blood pressure 114 mm[Hg] Brayden Furlong DO Work Phone: [email or web address] 06-22-2023 16:51-0500 Body mass index (BMI) [Ratio] 33.77 kg/m2 Brayden Furlong DO Work Phone: [email or web address] 06-22-2023 16:51-0500 Body weight 109.77 kg Brayden Furlong DO Work Phone: [email or web address] 06-22-2023 16:51-0500 Diastolic blood pressure 58 mm[Hg] Brayden Furlong DO Work Phone: [facility] 06-22-2023 16:51-0500 Heart rate 74 /min Brayden Furlong DO Work Phone: [email or web address] 06-22-2023 16:51-0500 Systolic blood pressure 116 mm[Hg] Brayden Furlong DO Work Phone: [facility] Encounters Encounter Date Encounter Type Care Provider Facility Start: 05-02-2024 End: 05-02-2024 ambulatory Brayden Flood Furlong DO Work Phone: [facility] Comment on above: Allergic conjunctivi tis of both eyes (Primary Dx); Morbid obesity ([facility]-HCC); Mucopurulent chronic bronchitis ([facility]-HCC); Xerosis of skin Start: 04-16-2024 End: 04-16-2024 ambulatory Brayden Remigio Furlong DO Work Phone: [facility] Comment on above: Benign essential hyp ertension (Primary Dx); Chronic combined systolic and diastolic heart failure (CMS-HCC); Mucopurulent chronic bronchitis (CMS-HCC); Sleep apnea, unspecified type Start: 03-23-2024 End: 03-23-2024 Telephone encounter [facility] Comment on above: High Blood Sugar - N o Symptoms Start: 03-07-2024 End: 03-07-2024 ambulatory Brayden Tomas DO Work Phone: [facility] Comment on above: Type 2 diabetes amparo itus with stage 2 chronic kidney disease, with long-term current use of insulin (CMS-HCC) (Primary Dx); Mixed hyperlipidemia; Benign essential hypertension; Chronic combined systolic and diastolic heart failure (CMS-HCC); Paroxysmal atrial fibrillation (CMS-HCC); Morbid obesity ([facility]-HCC) Start: 08-31-2023 Continuing Care Brayden toure DO Work Phone: [facility] Comment on above: Chronic combined sys tolic and diastolic heart failure (CMS- HCC) (Primary Dx); Morbid obesity (CMS-HCC); Major depressive disorder with single episode, in full remission ([facility]-HCC); Insomnia, unspecified type Start: 07-27-2023 ambulatory Brayden toure DO Work Phone: [facility] Comment on above: Chronic combined sys tolic and diastolic heart failure (CMS- HCC) (Primary Dx); Type 2 diabetes mellitus with stage 2 chronic kidney disease, with long-term current use of insulin ([facility]-HCC); Benign essential hypertension Start: 06-27-2023 ambulatory Brayden toure DO Work Phone: [facility] Comment on above: Chronic combined sys tolic and diastolic heart failure (CMS- HCC) (Primary Dx); Type 2 diabetes mellitus with stage 2 chronic kidney disease, with long-term current use of insulin ([facility]-HCC); Hyperkalemia; Left knee pain, unspecified chronicity Start: 06-22-2023 ambulatory Brayden toure DO Work Phone: [facility] Comment on above: Chronic combined sys tolic and diastolic heart failure ([facility]- HCC) (Primary Dx); Type 2 diabetes mellitus with stage 2 chronic kidney disease, with long-term current use of insulin ([facility]-HCC); Stage 2 chronic kidney disease; Hypokalemia; Hypoxemia; Hypocalcemia Start: 07-01-2022 End: 07-01-[address] BRYCE REID Facility: Start: 02-11-2021 End: 02-12-2021 ambulatory BRYCE REID Facility:[facility] Start: 01-04-2021 ambulatory UNKNOWN [facility] Start: 01-04-2021 End: 01-08-2021 Evaluation and management of inpatient IP PLASTICS PLATER SERVICE REQUEST Facility:[facility] Plan of Treatment Date Care Activity Detail Author Start: 04-16-2025 Adult BMI Screening Adult BMI Screening [facility] Start: 03-07-2025 Adult BMI Screening Adult BMI Screening [facility] Start: 02-13-2025 Adult BMI Screening Adult BMI Screening [facility] Start: 07-26-2024 Adult BMI Screening Adult BMI Screening [facility] Start: 07-26-2024 Tobacco Screening Tobacco Screening [facility] Start: 06-22-2024 Adult BMI Screening Adult BMI Screening [facility] Start: 05-22-2024 Adult BMI Screening Adult BMI Screening [facility] Start: 04-18-2024 Tobacco Screening Tobacco Screening [facility] Start: 01-27-2024 Influenza vaccination Influenza Vaccine [facility] Start: 01-26-2023 Influenza vaccination Influenza Vaccine [facility] Start: 2022 Fall Risk Screening Fall Risk Screening [facility] Start: 2007 Administration of varicella zoster vaccine Zoster (Shingles) Vaccine (1 of 2) [facility] Start: 1976 DTaP,Tdap and Td Vaccines (1 - Tdap) DTaP,Tdap and Td Vaccines (1 - Tdap) [facility] Start: 1975 Adult BMI Follow Up Plan Adult BMI Follow Up Plan [facility] Start: 1975 Diabetic foot examination Diabetic Foot Exam [facility] Start: 1969 Depression Screening Depression Screening [facility] Start: 1957 Glaucoma screening Diabetic Ophthalmology Exam [facility] Start: 1955 Medicare Annual Wellness Visit Medicare Annual Wellness Visit [facility] Immunizations Immunization Date Immunization Notes Care Provider Fa cility 02-25-2019 influenza virus vaccine, unspecified formulation Brayden Tomas DO Work Phone: [facility] Payers Date Payer Category Payer Medicare HMO [facility] [id number] 2023 Medicare [id number] 2020 Medicaid [id number] 1959 Medicaid [id number] 1959 Medicare [id number] 1955 Unknown [id number] 1957 Unknown [id number] 1957 Unknown [id number] 1957 Unknown [id number] 1957 Unknown [id number] Social History Date Type Detail Facility Start: 09-06-2022 Tobacco smoking stat NHIS Ex-smoker [facility] Start: 08-30-1979 End: 08-26-2018 History of tobacco use Current smoker [facility] Start: 08-30-1979 End: 08-26-2018 History of tobacco use Cigarette Smoker [facility] Start: 07-08-2020 End: 09-06-2022 Cigarettes smoked current (pack per day) - Reported 3 [facility] Start: 09-06-2022 Tobacco use and exposure Smokeless tobacco non-user [facility] Start: 07-08-2020 End: 04-18-2023 Tobacco use panel [facility] Childcare Unknown [facility] Start: 1955 Sex Assigned At Not on file P [facility] Start: 12-31-2014 Sex Female (finding) [facility] Clinical Notes 01-04-2021 to 05-02-2024 Brayden Tomas, DO - 05/02/2024 7:03 PM Guido Tomas, DO - 04/16/2024 9:46 PM ESTTelephone Encounter - Jaja Lugo Joe - 03/23/2024 5:46 PM EDTBrayden Tomas, DO - 03/07/2024 7:11 PM EDT Note Date & Type Note Facility 05-02-2024 History of Presen t illness Narrative Images from the original note were not included. Patient Name: Alexa Izquierdo Date of : 1955 Date of Service: 05/02/2024 Facility: [facility] Type of Visit: Acute Visit Subjective Alexa Izquierdo is a 68 y.o. female seen today at alf facility for problem and monthly visit. Juliette is complaining of itching eyes. It started recently. She doesn't have any pain or drainage. Her vision is not impaired. No recent illness. Otherwise no new problems. She has been getting cream for her lower legs. Allergies: Keflex [cephalexin], Silvadene [silver sulfadiazine], and Sulfamethoxazole-trimethoprim Code Status: FULL CODE BP 104/59 Pulse 96 Resp 20 SpO2 93% Physical Exam Constitutional: General: She is not in acute distress. Appearance: She is obese. She is not ill-appearing. Comments: In bed watching TV HENT: Head: Normocephalic. Eyes: General: Right eye: No discharge or hordeolum. Left eye: No discharge or hordeolum. Extraocular Movements: Right eye: Normal extraocular motion. Left eye: Normal extraocular motion. Conjunctiva/sclera: Right eye: Right conjunctiva is injected. No chemosis, exudate or hemorrhage. Left eye: Left conjunctiva is injected. No chemosis, exudate or hemorrhage. Comments: Both lower eyelids are red and swollen L>R and minimally on upper eyelids. There was minimal injection of sclerae. No discharge. Cardiovascular: Rate and Rhythm: Normal rate and regular rhythm. Pulses: Normal pulses. Heart sounds: Normal heart sounds. No murmur heard. Pulmonary: Effort: Pulmonary effort is normal. No respiratory distress. Breath sounds: Normal breath sounds. No wheezing, rhonchi or rales. Abdominal: General: Bowel sounds are normal. Palpations: Abdomen is soft. Tenderness: There is no abdominal tenderness. Musculoskeletal: Cervical back: Neck supple. Right lower leg: No edema. Left lower leg: No edema. Neurological: General: No focal deficit present. Mental Status: She is alert and oriented to person, place, and time. Psychiatric: Attention and Perception: Attention normal. Mood and Affect: Mood and affect normal. Speech: Speech normal. Behavior: Behavior normal. Behavior is cooperative. Thought Content: Thought content normal. Summary / Assessment / Plan 1. Allergic conjunctivitis of both eyes 2. Morbid obesity (CMS-HCC) 3. Mucopurulent chronic bronchitis (CMS-HCC) 4. Xerosis of skin [employer] ophthalmic soln 1 gtt BID OU. Continue other medications as before. All medications reviewed and are medically necessary. ELECTRONICALLY SIGNED BY: Brayden Tomas DO documented in this encounter [facility] [employer] 04-16-2024 History of Presen t illness Narrative Patient Name: Alexa Izquierdo Date of : 1955 Date of Service: 04/16/2024 Facility: [facility] Type of Visit: Subsequent Visit Subjective Alexa Izquierdo is a 68 y.o. female seen today at alf facility for monthly visit. No new problems reported by staff or patient. Allergies: Keflex [cephalexin], Silvadene [silver sulfadiazine], and Sulfamethoxazole-trimethoprim Code Status: FULL CODE BP 114/74 Pulse 96 Resp 22 Wt 115.2 kg (254 lb) SpO2 96% BMI 35.44 kg/m Physical Exam Constitutional: General: She is not in acute distress. Appearance: She is obese. She is not ill-appearing. Comments: In bed getting a breathing treatment watching TV HENT: Head: Normocephalic. Cardiovascular: Rate and Rhythm: Normal rate and regular rhythm. Pulses: Normal pulses. Heart sounds: Normal heart sounds. No murmur heard. Pulmonary: Effort: Pulmonary effort is normal. No respiratory distress. Breath sounds: Normal breath sounds. No wheezing, rhonchi or rales. Abdominal: General: Bowel sounds are normal. Palpations: Abdomen is soft. Tenderness: There is no abdominal tenderness. Musculoskeletal: Cervical back: Neck supple. Right lower leg: No edema. Left lower leg: No edema. Neurological: General: No focal deficit present. Mental Status: She is alert and oriented to person, place, and time. Psychiatric: Attention and Perception: Attention normal. Mood and Affect: Mood and affect normal. Speech: Speech normal. Behavior: Behavior normal. Behavior is cooperative. Thought Content: Thought content normal. Summary / Assessment / Plan 1. Benign essential hypertension 2. Chronic combined systolic and diastolic heart failure (CMS-HCC) 3. Mucopurulent chronic bronchitis (CMS-HCC) 4. Sleep apnea, unspecified type Medically stable. Continue current regimen. All medications reviewed and are medically necessary. ELECTRONICALLY SIGNED BY: Brayden Tomas DO documented in this encounter [employer] 03-23-2024 Miscellaneous Notes Contract: [address] [place] [address] Blood Sugar reading high Contract: [id number] Tomas and connected call documented in this encounter [facility] 03-23-2024 Telephone encounter Note Contract: [address] Blood Sugar reading high [facility] 03-23-2024 Telephone encounter Note Contract: [id number] Tomas and connected call [facility] 03-07-2024 History of Presen t illness Narrative Patient Name: Alexa Izquierdo Date of : 1955 Date of Service: 03/07/2024 Facility: [facility] Type of Visit: Subsequent Visit Subjective Alexa Izquierdo is a 68 y.o. female seen today at alf facility for regular visit. Nurses report that she had abnormal labs. Juliette denies any new problems. She has not been out of bed in the past month. Allergies: Keflex [cephalexin], Silvadene [silver sulfadiazine], and Sulfamethoxazole-trimethoprim Code Status: FULL CODE BP 134/69 Pulse 80 Wt 114.8 kg (253 lb) SpO2 95% BMI 35.30 kg/m Physical Exam Constitutional: General: She is not in acute distress. Appearance: She is obese. She is not ill-appearing. Comments: In bed eating snacks and watching TV HENT: Head: Normocephalic. Cardiovascular: Rate and Rhythm: Normal rate and regular rhythm. Pulses: Normal pulses. Heart sounds: Normal heart sounds. No murmur heard. Pulmonary: Effort: Pulmonary effort is normal. No respiratory distress. Breath sounds: Normal breath sounds. No wheezing, rhonchi or rales. Abdominal: General: Bowel sounds are normal. Palpations: Abdomen is soft. Tenderness: There is no abdominal tenderness. Musculoskeletal: Cervical back: Neck supple. Right lower leg: No edema. Left lower leg: No edema. Neurological: General: No focal deficit present. Mental Status: She is alert and oriented to person, place, and time. Psychiatric: Attention and Perception: Attention normal. Mood and Affect: Mood and affect normal. Speech: Speech normal. Behavior: Behavior normal. Behavior is cooperative. Thought Content: Thought content normal. Labs: A1c-7.6% Total cholesterol-176 Triglycerides-438 which is high HDL-34 which is low Digoxin level -0.6 which is low Glucose was 157 and the BUN creatinine ratio was a little high but otherwise BMP was normal. GFR was 63 A1c was 7.6%. They were unable to collect a urine specimen for an ACR Assessment/Plan Summary / Assessment / Plan 1. Type 2 diabetes mellitus with stage 2 chronic kidney disease, with long-term current use of insulin ([facility] 2. Mixed hyperlipidemia 3. Benign essential hypertension 4. Chronic combined systolic and diastolic heart failure ([facility]) 5. Paroxysmal atrial fibrillation ([facility]) 6. Morbid obesity ([facility]) Her triglycerides were too high, in fact too high to calculate LDL which is important to know. I am going to increase her atorvastatin to 80 mg daily. We discussed her A1c at 7.6%. We will continue current regimen for now. It is only fair. Encouraged to snack on healthy foods and not drink pop. Continue other orders as directed. All other medications reviewed and are medically necessary. ELECTRONICALLY SIGNED BY: Brayden Tomas DO documented in this encounter [facility] [employer] [facility] 08-31-2023 History of Presen t illness Narrative Patient Name: Alexa Izquierdo Date of : 1955 Date of Service: 08/31/2023 Facility: [facility] Type of Visit: Subsequent Visit Subjective Alexa Izquierdo is a 68 y.o. female seen today at alf facility for regular visit. No new problems reported. Pharmacy recommended a gradual dose reduction for her trazodone 25 mg. She is also taking melatonin 5 mg at bedtime. She is ok with a trial off of the medication but she is concerned that she might not be able to sleep at night. She does admit to taking naps off and on during the day. Her breathing has been pretty good lately. Allergies: Keflex [cephalexin], Silvadene [silver sulfadiazine], and Sulfamethoxazole-trimethoprim Code Status: FULL CODE Review of Systems Psychiatric/Behavioral: Positive for sleep disturbance. BP 90/60 Pulse 74 Physical Exam Constitutional: General: She is not in acute distress. Appearance: She is obese. She is not ill-appearing. HENT: Head: Normocephalic. Cardiovascular: Rate and Rhythm: Normal rate and regular rhythm. Pulses: Normal pulses. Heart sounds: Normal heart sounds. Pulmonary: Effort: Pulmonary effort is normal. No respiratory distress. Breath sounds: Normal breath sounds. No wheezing, rhonchi or rales. Abdominal: General: Bowel sounds are normal. Palpations: Abdomen is soft. Tenderness: There is no abdominal tenderness. Musculoskeletal: Cervical back: Neck supple. Right lower leg: No edema. Left lower leg: No edema. Neurological: General: No focal deficit present. Mental Status: She is alert and oriented to person, place, and time. Psychiatric: Attention and Perception: Attention normal. Mood and Affect: Mood and affect normal. Speech: Speech normal. Behavior: Behavior normal. Behavior is cooperative. Thought Content: Thought content normal. Summary / Assessment / Plan 1. Chronic combined systolic and diastolic heart failure (CMS-HCC) 2. Morbid obesity (CMS-HCC) 3. Major depressive disorder with single episode, in full remission (CMS-HCC) 4. Insomnia, unspecified type We will try to stop trazodone and will increase melatonin to 10 mg daily for insomnia as she is worried about sleeping at night. I encouraged her not to sleep during the day so she will be tired at night and may sleep better. Her depression seems to be in remission. All other medications reviewed and are medically necessary. ELECTRONICALLY SIGNED BY: Brayden Tomas DO documented in this encounter [facility] [employer] 07-27-2023 History of Presen t illness Narrative Patient Name: Alexa Izquierdo Date of : 1955 Date of Service: 07/27/2023 Facility: [facility] Type of Visit: Subsequent Visit Subjective Alexa Izquierdo is a 68 y.o. female seen today at alf facility for regular visit. Juliette had labs and there were some abnormalities. Her A1c was high at 7.8% her FBSs are mostly high. She is on multiple medications. She is essentially bedbound. Her BNP was very good at 30.5. GFR was 71. CO2 high at 40. Cl- low at 96. BUN and BUN/creat ration were high. She has no new concerns. No recent troubles with her breathing. It is at baseline. Allergies: Keflex [cephalexin], Silvadene [silver sulfadiazine], and Sulfamethoxazole-trimethoprim Code Status: FULL CODE BP 118/62 Pulse 76 Temp 36.7 C (98.1 F) Resp 18 Wt 114.7 kg (252 lb 12.8 oz) SpO2 94% BMI 35.27 kg/m Physical Exam Constitutional: Appearance: She is obese. HENT: Head: Normocephalic. Cardiovascular: Rate and Rhythm: Normal rate and regular rhythm. Pulses: Normal pulses. Heart sounds: Normal heart sounds. Pulmonary: Effort: Pulmonary effort is normal. No respiratory distress. Breath sounds: Normal breath sounds. No wheezing, rhonchi or rales. Abdominal: General: Bowel sounds are normal. Palpations: Abdomen is soft. Musculoskeletal: Right lower leg: No edema. Left lower leg: No edema. Neurological: General: No focal deficit present. Mental Status: She is alert and oriented to person, place, and time. Labs noted in history. Summary / Assessment / Plan 1. Chronic combined systolic and diastolic heart failure (CMS-HCC) 2. Type 2 diabetes mellitus with stage 2 chronic kidney disease, with long-term current use of insulin (CMS-HCC) 3. Benign essential hypertension Increase Tresiba to 14 units daily. Continue other diabetic medications/other medications as directed. She can increase her fluid restriction to 2400ml/24 hours. Check BMP, BNP and A1c in October All medications reviewed and are medically necessary. Addendum It looks like she had labs drawn 3 times in June. Her A1c was repeated and it was 7.4% Her GFR was consistent at 71. Her BUN and BUN/creat ratio improved. Another BNP was 85 which is normal. ELECTRONICALLY SIGNED BY: Brayden Tomas DO documented in this encounter [employer] 06-27-2023 History of Presen t illness Narrative Patient Name: Alexa Izquierdo Date of : 1955 Date of Service: 06/27/2023 Facility: [facility] Type of Visit: Acute Visit Subjective Alexa Izquierdo is a 68 y.o. female seen today at [facility] for abnormal labs. Nurses report abnormal labs. Patient denies any symptoms. Her K+ was 5.8 and there was no hemolysis with the specimen. She also says she is having left knee pain. She would like something else for pain. She is on norco routinely. There was no injury. It isn't red or swollen. Allergies: Keflex [cephalexin], Silvadene [silver sulfadiazine], and Sulfamethoxazole-trimethoprim Code Status: FULL CODE BP 114/68 Pulse 84 Physical Exam Constitutional: Appearance: She is morbidly obese. Comments: Patient in bed watching TV. She is wearing nebulizer mask but no medication is in it. I offered to turn it off but she wants it on. She has O2 via NC ordered but not using. HENT: Head: Normocephalic. Cardiovascular: Rate and Rhythm: Normal rate and regular rhythm. Pulses: Normal pulses. Heart sounds: Normal heart sounds. No murmur heard. Pulmonary: Effort: Pulmonary effort is normal. No respiratory distress. Breath sounds: Wheezing present. Musculoskeletal: General: Tenderness (left knee) present. Left knee: Bony tenderness present. No swelling, deformity, effusion or erythema. Decreased range of motion. Right lower leg: No edema (trace). Left lower leg: No edema. Skin: Findings: Rash (chronic venous stasis dermatitis) present. Neurological: Mental Status: She is alert. Psychiatric: Attention and Perception: Attention normal. Mood and Affect: Mood normal. Speech: Speech normal. Behavior: Behavior normal. Behavior is cooperative. Thought Content: Thought content normal. Labs: A1c 7.8% K+ 5.8-H Na+ 138-wnl GFR 62 Summary / Assessment / Plan 1. Chronic combined systolic and diastolic heart failure ([facility]) 2. Type 2 diabetes mellitus with stage 2 chronic kidney disease, with long-term current use of insulin ([facility]) 3. Hyperkalemia 4. Left knee pain, unspecified chronicity Hold K+Cl- 20mg BID for 1 day then restart at 20 meq daily and recheck BMP in 1 week. Add Tresiba 10 units subcutaneously daily. Continue jardiance, trulicity and humalog 10 units BID. Check X-ray of left knee. Try diclofenac gel 1% BID to knee. Continue other orders as directed. ELECTRONICALLY SIGNED BY: Brayden Tomas DO documented in this encounter [employer] 06-22-2023 History of Presen t illness Narrative Patient Name: Alexa Izquierdo Date of : 1955 Date of Service: 06/22/2023 Facility: [facility] Type of Visit: Subsequent Visit Subjective Alexa Izquierdo is a 67 y.o. female seen today at alf facility for monthly visit. Juliette has no new problems to report. I had ordered labs last month but they were not entered. Nursing reports that she wears the nebulizer mask all the time and refuses BiPAP at night. Allergies: Keflex [cephalexin], Silvadene [silver sulfadiazine], and Sulfamethoxazole-trimethoprim Code Status: FULL CODE BP 116/58 Pulse 74 Wt 109.8 kg (242 lb) BMI 33.77 kg/m Physical Exam Constitutional: Appearance: She is morbidly obese. Comments: Patient in bed watching TV. She is wearing nebulizer mask but no medication is in it. I offered to turn it off but she wants it on. She has O2 via NC ordered but not using. HENT: Head: Normocephalic. Cardiovascular: Rate and Rhythm: Normal rate and regular rhythm. Pulses: Normal pulses. Heart sounds: Normal heart sounds. No murmur heard. Pulmonary: Effort: Pulmonary effort is normal. No respiratory distress. Breath sounds: Wheezing present. Musculoskeletal: Right lower leg: Edema (trace) present. Left lower leg: No edema. Neurological: Mental Status: She is alert. Psychiatric: Attention and Perception: Attention normal. Mood and Affect: Mood normal. Speech: Speech normal. Behavior: Behavior normal. Behavior is cooperative. Thought Content: Thought content normal. Summary / Assessment / Plan 1. Chronic combined systolic and diastolic heart failure ([facility]) 2. Type 2 diabetes mellitus with stage 2 chronic kidney disease, with long-term current use of insulin ([facility]) 3. Stage 2 chronic kidney disease 4. Hypokalemia 5. Hypoxemia 6. Hypocalcemia Check BMP, BNP and A1c to monitor DM, CHF, hypocalcemia and hypokalemia. Check VS monthly and record results including O2 sats. She is non-compliant with BiPAP I told the nurse to give her a breathing treatment now. All medications reviewed and are medically necessary. ELECTRONICALLY SIGNED BY: Brayden Tomas DO documented in this encounter [facility] 01-10-2021 Note Transitional Care Esperanza melissa Contact Initial communication post- discharge: Sources of Information: []Patient, family member or rn intensive care unit: Name and Relationship to patient: [x] Hospital Discharge Summary reviewed: [] Hospital fax received from: [x] List of recent hospitalizations or ED visits reviewed : [x]Other: Chart review completed: Date of Admission: 01/04/21 Date of Discharge: 01/08/21 Hospital Discharge diagnosis: Acute on chronic respiratory failure requiring intubation 2/2 to Acute decompensated HFrEF and Atrial fibrillation with RVR Pt is admitted to SNF . Pt will not be followed by HF Care Coordination. Jennifer Wyatt RN, BSN, CHFN Heart Failure [employer] Head [facility] 01-08-2021 Note DISCHARGE SUMMARY [address] [id number] Alexa Izquierdo Date of : 1955 65 year old female Attending Andriy Lucas MD Date of Admission 01/04/2021 Date of Discharge 01/08/2021 [Principal Hospital Problem (Final Diagnosis)] Congestive heart failure, unspecified HF chronicity, unspecified heart failure type (HCC) Alexa Izquierdo Home Medication Instructions ELENA:[id number] Printed on:01/08/21 0616 Medication Information Apixaban (ELIQUIS) 5 MG tablet Take 1 Tablet by mouth 2 times daily. Bismuth Subsalicylate 525 MG/15ML SUSP Take by mouth daily as needed. empagliflozin (JARDIANCE) 10 MG TABS tablet Take 1 Tablet by mouth daily. fluticasone-salmeterol (Advair Diskus) 250-50 MCG/DOSE inhaler Inhale 1 Puff by mouth 2 times daily. hydrocodone-acetaminophen (NORCO) 10-325 MG per tablet Take 1 Tablet by mouth every 6 hours as needed for Pain. insulin aspart (NovoLOG FlexPen) 100 UNIT/ML SOPN flexpen injection Inject 10 Units under the skin 2 times daily. ipratropium (ATROVENT) 0.03 % nasal spray Use 2 Sprays in each nostril 3 times daily. lisinopril (ZESTRIL) 5 MG tablet Take 1 Tablet by mouth daily. Melatonin 3 MG CAPS Take by mouth. metformin (GLUCOPHAGE) 500 MG tablet Take 1 Tablet by mouth daily. metoprolol (Toprol XL) 100 mg XL tablet Take 1 Tablet by mouth daily (with breakfast). metoprolol (TOPROL-XL) 50 mg XL tablet Take 1 Tablet by mouth at bedtime. morphine 15 MG ir tablet Take 1 Tablet by mouth 2 times daily. ondansetron (Zofran) 4 MG tablet Take 1 Tablet by mouth every 12 hours as needed for Nausea. potassium chloride SA (K-DUR) 20 MEQ controlled release tablet Take 2 Tablets by mouth 2 times daily. senna (SENOKOT) 8.6 MG tablet Take 1 Tablet by mouth daily as needed for Constipation. trazodone (DESYREL) 50 mg tablet Take 1 Tablet by mouth at bedtime. As Directed Current Facility-Administered Medications: * potassium chloride SA (K-DUR) 20 MEQ controlled release tablet, 40 mEq, Oral, 2x Daily, Niles Hernandez MD, 40 mEq at 01/08/21 0848 * oxyCODONE 5 MG immediate release tablet, 5 mg, Oral, Q6H PRN, Israel Trimble MD, 5 mg at 01/08/21 0940 * Apixaban (ELIQUIS) 5 MG tablet, 5 mg, Oral, 2x Daily, Israel Trimble MD, 5 mg at 01/08/21 0804 * metoprolol (TOPROL-XL) 50 mg 24 hour tablet, 50 mg, Oral, 2x Daily, Israel Trimble MD, 50 mg at 01/08/21 0804 * lisinopril (ZESTRIL) 5 MG tablet, 5 mg, Oral, Daily, Israel Trimble MD, 5 mg at 01/08/21 0804 * acetaminophen (TYLENOL) 325 mg tablet, 650 mg, Oral, Q4H PRN, Jonah Ga MD, 650 mg at 01/08/21 1220 * digoxin (LANOXIN) 125 MCG tablet, 0.125 mg, Oral, Daily Digoxin, Niles Hernandez MD, 0.125 mg at 01/08/21 1304 * insulin lispro (HumaLOG) 100 UNIT/ML injection, 2-14 Units, Subcutaneous, Every 6 hours, Huber George MD, 2 Units at 01/08/21 1304 * [MAR Hold] albuterol (PROVENTIL HFA) 108 (90 Base) MCG/ACT HFA inhaler, 4 Puff, Inhalation, QID RT, Andriy Lucas MD, 4 Puff at 01/06/21 1146 * dextrose 50 % injection, 12.5 g, Intravenous Push, PRN OR glucagon (GLUCAGEN) 1 MG injection, 1 mg, Subcutaneous, PRN OR dextrose (GLUTOSE) 40 % gel, 15 g of glucose, Buccal, PRN OR dextrose (GLUTOSE) 40 % gel, 30 g of glucose, Buccal, PRN, Huber George MD * [MAR Hold] albuterol (PROVENTIL) (2.5 MG/3ML) 0.083% nebulizer solution, 2.5 mg, Nebulization, Every 2 hours, Andriy Lucas MD, 2.5 mg at 01/04/21 1154 * albuterol (PROVENTIL) (2.5 MG/3ML) 0.083% nebulizer solution, 2.5 mg, Nebulization, Q4H PRN, Jonah Ga MD Condition at Discharge Improved Activity No restrictions Diet Diabetic and 2 gram sodium Disposition alf facility Functional Status Ambulatory Reason for Hospitalization Acute on chronic respiratory failure requiring intubation 2/2 to Acute decompensated HFrEF and Atrial fibrillation with RVR Significant Findings Patient was found to have significant hypervolemia 2/2 to acute decompensated HFrEF. Hospital Course Patient is a 65-year-old female who presented to [facility] after being transferred from an outside facility. She presented intubated and sedated for acute on chronic hypoxemic hypercapnic respiratory failure. 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 Patient had significant UOP after 2 doses of 40 mg IV Furosemide. Patient has paroxysmal atrial fibrillation which was previously controlled on Diltiazem. ??? Patient continues to diurese well without renal impairment. Improvement in respiratory status with aggressive diuresis. Patient was extubated on 01/06 without complication. Continues to oxygenate on baseline 3L appropriately. Metoprolol will be transitioned to suc (more content not included)... [facility] 01-08-2021 Note CICU Progress Note Alexa Izquierdo 65 year old [id number] lbs MRN/Room: [id number]/CP3-153/1 Code Status: Full Code Admit Date: 01/04/2021 Length of stay: 4 day(s) Summary: Patient is a 65-year-old female who presented to [facility] after being transferred from an outside facility. She presented intubated and sedated for acute on chronic hypoxemic hypercapnic respiratory failure. 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 Patient had net of -2.37L of UOP after 2 doses of 40 mg IV Furosemide. Patient has paroxysmal atrial fibrillation which was previously controlled on Diltiazem. Patient continues to diurese with 1.792L of net urine output. Improvement in respiratory status with aggressive diuresis. Patient was extubated on 01/06 without complication. Continues to oxygenate on baseline 3L appropriately. Metoprolol will be transitioned to succinate 50 mg BID today for rate control. Continue to optimize GDMT along with oxygen status. Patient will plan for discharge back to facility today after COVID-19 test completed. Recent Events: Patient refused to wear BiPAP over night. No other acute events. Tele: Atrial fibrillation without RVR. No acute ischemic changes. Subjective: Patient seen at bedside doing well. Patient continues to oxygenate well on home 3L NC. She states she still feels mildly short of breath but states she has improved by about 90-95% since admission. She continues to refuse her BiPAP overnight. She denies any chest pain or pain other than her chronic pain. No other acute concerns at this time. Vital Signs and I/Os: Vital sign ranges over the past 24 hours (retrieved 01/08/2021 at 7:05 AM): Tmax (24 hours): 98.4 ???F (36.9 ???C) Pulse Av Min: 92 Max: 109 Systolic (24hrs), Av , Min:99 , Max:128 Diastolic (24hrs), Av, Min:57, Max:88 MAP (mmHg) Av.1 mmHg Min: 69 mmHg Max: 96 mmHg Resp Av Min: 15 Max: 23 SpO2 Av.8 % Min: 88 % Max: 100 % Patient Vitals for the past 24 hrs: BP Temp Temp src Pulse Resp SpO2 O2 Device O2 Flow Rate (l/min) 01/08/21 0600 106/70 -- -- 101 17 99 % -- -- 01/08/21 0500 99/57 -- -- 97 18 97 % -- -- 01/08/21 0400 101/57 -- -- 103 19 95 % -- -- 01/08/21 0300 115/73 -- -- 92 17 100 % -- -- 01/08/21 0200 120/68 -- -- 93 17 96 % -- -- 01/08/21 0100 114/88 -- -- 94 19 99 % -- -- 01/08/21 0000 106/67 -- -- 102 21 96 % -- -- 01/07/21 2300 117/61 -- -- 99 17 98 % -- -- 01/07/21 2200 112/71 98.4 ???F (36.9 ???C) Oral 94 21 97 % Nasal cannula 3 01/07/21 2100 117/79 -- -- 101 19 97 % -- -- 01/07/21 2000 120/60 -- -- 101 19 97 % -- -- 01/07/21 1900 117/67 98.4 ???F (36.9 ???C) Oral 106 20 95 % Nasal cannula 3 01/07/21 1702 122/69 -- -- 102 15 98 % -- -- 01/07/21 1600 112/76 -- -- 97 20 97 % -- -- 01/07/21 1500 114/63 97.6 ???F (36.4 ???C) Oral 109 17 98 % Nasal cannula 3 01/07/21 1441 -- -- -- 101 23 95 % Nasal cannula 3 01/07/21 1400 113/61 -- -- 101 22 97 % -- -- 01/07/21 1300 112/58 -- -- 102 23 97 % -- -- 01/07/21 1200 99/78 -- -- 99 23 88 % -- -- 01/07/21 1100 109/61 97.7 ???F (36.5 ???C) Oral 93 20 99 % Nasal cannula 5 01/07/21 1000 128/69 -- -- 102 18 97 % -- -- 01/07/21 0905 -- -- -- 101 18 97 % Nasal cannula 5 01/07/21 0900 121/60 -- -- 96 19 95 % -- -- 01/07/21 0829 107/68 -- -- 105 16 100 % BiPAP 4 01/07/21 0800 107/ -- -- 107 18 97 % -- -- 01/07/21 0745 -- -- -- 101 17 97 % Nasal cannula 5 Admission Weight Today's Weight BMI 41.48 Change in Weight: Current value is 297.4 lb (134.899 kg) on 01/07/2021 at 0600 -1.1 lb (-0.500 kg) (-0.37 %) from 298.5 lb (135.399 kg) on 01/06/2021 at 0519 (previous value) -21.2 lb (-9.616 kg) (-6.65 %) from 318.6 lb (144.515 kg) on 01/04/2021 at 1300 (first value for this admission) Intake/Output Summary (Last 24 hours) at 01/08/2021 0705 Last data filed at 01/08/2021 0430 Gross per 24 hour Intake 634 ml Output 2845 ml Net -221 ml In: 634 (4.7 mL/kg) [P.O.:600; I.V.:34 (0 mL/kg/hr)] Out: 2845 (21.1 mL/kg) [Urine:2845 (0.9 mL/kg/hr)] Net: -2210 Weight: 134.9 kg Lines/Drains Peripheral IV Access: 01/04/21 1119 20 gauge Right Antecubital (Active) Site Assessment WNL;Dressing intact 01/05/21 1200 Infusion Status Port #1 Infusing;Patent 01/05/21 1200 Number of days: 1 Peripheral IV Access: 01/04/21 1119 22 gauge Left Antecubital (Active) Site Assessment WNL;Dressing intact 01/05/21 1200 Infusion Status Port #1 Infusing;Patent 01/05/21 1200 Number of days: 1 Peripheral IV Access: 01/04/21 1930 20 gauge Anterior;Right;Upper Arm (Active) $ Lines: $ IV Start (procedure) 01/04/21 1930 Site Assessment WNL;Dressing intact 01/05/21 1200 Infusion Status Port #1 Infusing;Patent 01/05/21 1200 Number of days: 1 Peripheral IV Access: 01/05/21 0800 22 gauge Anterior;Right Hand (Active) $ Lines: $ IV Start (procedure) (more content not included)... [facility] 01-07-2021 Note CICU Progress Note Alexa Izquierdo 65 year old [id number] lbs MRN/Room: [id number]/CP3-153/1 Code Status: Full Code Admit Date: 01/04/2021 Length of stay: 3 day(s) Summary: Patient is a 65-year-old female who presented to [facility] after being transferred from an outside facility. She presented intubated and sedated for acute on chronic hypoxemic hypercapnic respiratory failure. 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 Patient had net of -2.37L of UOP after 2 doses of 40 mg IV Furosemide. Patient has paroxysmal atrial fibrillation which was previously controlled on Diltiazem. Patient continues to diurese with 1.792L of net urine output. Improvement in respiratory status with aggressive diuresis. Patient was extubated on 01/06 without complication. Continues to oxygenate on baseline 3L appropriately. Metoprolol will be transitioned to succinate 50 mg BID today for rate control. Recent Events: Patient refused to wear BiPAP over night. No other acute events. Tele: Atrial fibrillation without RVR. No acute ischemic changes. Subjective: Patient seen at bedside doing well. Patient continues to oxygenate well on home 3L NC. She states she still feels mildly short of breath but states she has improved by about 80% since extubation yesterday. She denies any chest pain or pain other than her chronic pain. No other acute concerns at this time. Vital Signs and I/Os: Vital sign ranges over the past 24 hours (retrieved 01/07/2021 at 1:07 PM): Tmax (24 hours): 99.6 ???F (37.6 ???C) Pulse Av.2 Min: 88 Max: 140 Systolic (24hrs), Av , Min:102 , Max:147 Diastolic (24hrs), Av, Min:50, Max:99 MAP (mmHg) Av.7 mmHg Min: 61 mmHg Max: 114 mmHg Resp Av.5 Min: 2 Max: 29 SpO2 Av.8 % Min: 86 % Max: 100 % Patient Vitals for the past 24 hrs: BP Temp Temp src Pulse Resp SpO2 O2 Device O2 Flow Rate (l/min) FiO2 (%) 01/07/21 1100 109/61 97.7 ???F (36.5 ???C) Oral 93 20 99 % Nasal cannula 5 -- 01/07/21 1000 128/69 -- -- 102 18 97 % -- -- -- 01/07/21 0905 -- -- -- 101 18 97 % Nasal cannula 5 -- 01/07/21 0900 121/60 -- -- 96 19 95 % -- -- -- 01/07/21 0829 107/68 -- -- 105 16 100 % BiPAP 4 -- 01/07/21 0800 107/68 -- -- 107 18 97 % -- -- -- 01/07/21 0745 -- -- -- 101 17 97 % Nasal cannula 5 -- 01/07/21 0700 110/70 98.1 ???F (36.7 ???C) Oral 88 20 100 % Nasal cannula 5 -- 01/07/21 0600 112/64 -- -- 104 17 100 % -- -- -- 01/07/21 0526 109/73 -- -- 103 20 99 % -- -- -- 01/07/21 0500 -- 97.6 ???F (36.4 ???C) Oral -- -- -- -- -- -- 01/07/21 0400 102/50 -- -- 106 19 98 % Nasal cannula 5 -- 01/07/21 0300 118/68 -- -- 104 23 98 % -- -- -- 01/07/21 0200 102/55 -- -- 103 20 97 % -- -- -- 01/07/21 0100 111/76 -- -- 103 21 97 % -- -- -- 01/07/21 0000 102/64 -- -- 107 22 97 % Nasal cannula 5 -- 01/06/21 2300 123/70 -- -- 110 21 97 % -- -- -- 01/06/21 2200 116/80 99 ???F (37.2 ???C) Axillary 112 2 98 % Nasal cannula 5 -- 01/06/21 2100 131/81 -- -- 134 17 99 % -- -- -- 01/06/211999 139/83 -- -- 114 19 96 % -- -- -- 01/06/21 1930 -- -- -- -- -- -- Nasal cannula 5 -- 01/06/211841 -- 99.6 ???F (37.6 ???C) Axillary -- -- -- -- -- -- 01/06/21 183 -- -- -- 140 29 88 % Venti mask -- 50 01/06/21 1800 127/64 -- -- 115 20 96 % -- -- -- 01/06/21 1700 147/88 -- -- 117 16 89 % -- -- -- 01/06/21 1600 140/74 -- -- 128 20 96 % -- -- -- 01/06/21 1500 144/99 98 ???F (36.7 ???C) Oral 120 18 97 % Nasal cannula 5 -- 01/06/21 1441 -- -- -- -- -- 94 % -- -- -- 01/06/21 1440 -- -- -- -- -- 95 % -- -- -- 01/06/21 1439 -- -- -- -- -- 96 % -- -- -- 01/06/21 1438 -- -- -- -- -- 93 % -- -- -- 01/06/21 143 -- -- -- -- -- 89 % Nasal cannula 5 -- 01/06/21 1436 -- -- -- -- -- 92 % -- -- -- 01/06/21 1435 -- -- -- -- -- 92 % -- -- -- 01/06/21 1434 -- -- -- -- -- 91 % -- -- -- 01/06/21 1433 -- -- -- -- -- 90 % -- -- -- 01/06/21 1432 -- -- -- -- -- 86 % -- -- -- 01/06/21 1431 -- -- -- -- -- 89 % -- -- -- 01/06/21 1430 -- -- -- -- -- 92 % -- -- -- 01/06/21 1429 -- -- -- -- -- 92 % -- -- -- 01/06/21 1428 -- -- -- -- -- 88 % Nasal cannula 4 -- 01/06/21 1427 -- -- -- -- -- 91 % -- -- -- 01/06/21 1421 -- -- -- 103 16 95 % Nasal cannula 3 -- 01/06/21 1400 143/83 -- -- 124 14 99 % -- -- -- Admission Weight Today's Weight BMI 41.48 Change in Weight: Current value is 297.4 lb (134.899 kg) on 01/07/2021 at 0600 -1.1 lb (-0.500 kg) (-0.37 %) from 298.5 lb (135.399 kg) on 01/06/2021 at 0519 (previous value) -21.2 lb (-9.616 kg) (-6.65 %) from 318.6 lb (144.515 kg) on 01/04/2021 at 1300 (first value for this admission) Intake/Output Summary (Last 24 hours) at 01/07/2021 1307 Last data filed at 01/07/2021 1120 Gross per 24 hour Intake 1242.55 ml Output 3475 ml Net -2232.45 ml In: 1623 (12 mL/kg) [P.O.:500; I.V.:1023 (0.3 mL/kg/hr)] Out: 3375 (25 mL/kg) [Urine:3375 (more content not included)... [facility] 01-07-2021 Note OCCUPATIONAL THERAPY INITIAL EVALUATION Patient seen from 11:00AM to 11:10AM on ccp3e unit for 10 minutes. Reason for Admit:65 year old???yo female???with a PMH of COPD on 3L NC at baseline, paroxsymal vs longstanding persistent atrial fibrillation, Mixed systolic and diastolic HF, ???IDDM type II, CKD unknown stage, Class III obesity (no official diagnosis of TIFFANIE) presenting with???acute on chronic hypoxemic hypercapnic respiratory failure requiring mechanical ventilation 2/2 to HFrEF exacerbation. Precautions/Activity Order: [place] Past Medical and Surgical History: PMH: No past medical history on file. PSH: No past surgical history on file. SUBJECTIVE: Patient Subjective: Im ready to go back today Patient Identified Goal(s): to return to LTC facility Home Living Situation Pt admitted from LTC facility, reports assist with all ADL tasks, inocencia for functional transfers OBJECTIVE: Patient Identification: patient verbalizing his/her name and date of . Risks and benefits of occupational therapy: Patient informed of risks and benefits of treatment Appearance: Obese, Oxygen, Iv, EKG, pulse ox, BP cuff Alertness: WFL Affect: WNL Cooperation/Behavior: Appropriate dialogue with therapist Communication: WFL Pain: Pain rating: unrated/10, Location: all over Pain Relief Interventions Implemented: Positioning and Rest Self Care: Assistance Level Dep Max Mod Min CG CS DS MT I Set-Up Comment Feeding x With tray Grooming/Hygiene x At bed level Bathing:UB x Anticipate Bathing:LB x Anticipate Dressing:UB x Gown Dressing: LB x Socks Toileting x Anticipate for clothing management, toileting hygiene Transfers/Bed Mobility: Assistance Level Dep Max Mod Min CG CS DS MT I Set-Up Comment Toilet Transfers x Inocencia at baseline Bed Transfers x Inocencia at baseline Bed Mobility x Endurance for Self Care: Impaired Static Sitting Balance: N/T Dynamic Sitting Balance: N/T UE Motor: RUE-AROM WFL LUE- shoulder flexion 1/2 AROM, elbow/wrist/digits WFL Vision/Perception: WFL Cognition: Orientation: Oriented to person, place and date Follows Commands: WFL Attention: WNL Memory: WFL Problem Solving: WFL Safety/Judgement: WFL Sequencing: WFL Other Specialized Tests: None Patient/Family Education: Instructed patient in roles of therapy Patient up in bed with call light in reach DME: With Patients permission ordered no equipment via [employer] Order. If any questions contact [facility] DME Provider at [phone]. ??? 6 Clicks Daily Activity OT 01/07/2021 Help from another person Eating meals 3 Help from another person taking care of personal grooming 3 Help from another person bathing 2 Help from another person putting on and taking off regular upper body clothing 2 Help from another person putting on and taking off regular lower body clothing 1 Help from another person toileting 1 OT 6 Clicks Score 12 6 Click Score Guidelines: 1 - Unable = Total/Dependent Assist 2 - A lot = Max/Moderate Assist 3 - A little = Minimum/Contact Guard Assist/Supervision 4 - Non = Modified Brohard/Independent ASSESSMENT: Patient is currently funcitoning at baseline, recommending return to LTC facility with OT/PT screen. No further skilled OT needs at this time. PLAN: D/C from OT able to discuss the evaluation findings and treatment plan with the patient/family. The patient/family did participate in the development of plan and goals. Pastora Sylvester OT NA = Not Assessed, I = Independent, MT = Modified Independent, Sup = Supervised, Set up = Physical Assistance for Set-up Only, Min = Minimal Assistance, Mod = Moderate Assistance, Max = Max assistance; Dep = Dependent; AROM = Active Range of Motion;PROM=Passive Range of Motion; MMT = Manual Muscle Test; UB = Upper Body; LB = Lower Body [facility] 01-07-2021 Note PHYSICAL THERAPY ACU TE EVALUATION Referral received, chart reviewed. Patient seen from 11:00am to 11:10am on CCP3E unit for 10 minutes. Admit date/time: 01/04/2021 11:09 AM Reason for Admit: acute respiratory failure requiring mechanical ventilation Diagnosis: Acute respiratory failure Precautions: Falls Progressive mobility Past Medical and Surgical History: PMH: PMH of COPD on 3L NC at baseline, paroxsymal vs longstanding persistent atrial fibrillation, Mixed systolic and diastolic HF, ???IDDM type II, CKD unknown stage, Class III obesity (no official diagnosis of TIFFANIE) PSH: No past surgical history on file. Identification was verified by patient verbalizing his/her name and date of . Risks and Benefits of physical therapy: Patient informed of risks and benefits of treatment SUBJECTIVE: Patient Subjective: I just want to go back home. 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 Bilateral hip and knee flexion is limited due to pain and soft tissue approximation Strength/Active ROM: 2-/5 BLE Mobility: NT secondary to Patient being dependent at baseline. Endurance: Impaired Patient/Family Education: Instructed Patient in roles of therapy. Patient up in bed with call light in reach. ??? DME: With Patients permission ordered no equipment via [employer] Order. If any questions contact [facility] DME Provider at [phone]. 0 Clicks Basic Mobility PT 01/07/2021 Difficulty turning over in bed 2 Difficulty sitting down and standing up from a chair with arms 1 Difficulty moving from lying on back to sitting on the side of the bed 1 Help from another person moving to and from bed to a chair 1 Help from another person to walk in hospital room 1 Help from another person climbing 3-5 steps with a railing 1 PT 6 Clicks Score 7 6 Click Score Guidelines: 1 - Total = Requires total assistance, or cannot do at all. 2 - A lot = Requires a lot of help (maximun to moderate assistance) Can use assistive devices. 3 - A little = Requires a little help (supervision, minimal assistance) Can use assistive devices. 4 - None = Does not require any help and does the activity independently. Can use assistive devices. ??? ASSESSMENT: Alexa Izquierdo is a 65 year old yo female admitted from senior care care facility where she has been a resident for 2 years. Patient is functionally appropriate for discharge back to LTC once medically cleared. No further Physical Therapy services recommended at this time. PLAN OF CARE: DC PT. Patient has no acute care PT needs. Facility staff can rescreen upon return to LTC to determine if patient has post acute PT needs. The evaluation findings and treatment plan were discussed with the patient/family. The patient/family indicated understanding and agreement with the plan. Sarah Preciado, PT NA = Not Assessed, I = Independent, MT = Modified Independent, Sup = Supervised, Set up = Physical Assistance for Set-up Only, Min = Minimal Assistance, Mod = Moderate Assistance, Max = Max assistance; Dep = Dependent; AROM = Active Range of Motion; PROM = Passive Range of Motion; MMT = Manual Muscle Test; LE = Lower Extremity [facility] 01-06-2021 Note CICU Progress Note Alexa Izquierdo 65 year old [id number] lbs MRN/Room: [id number]/CP3-153/1 Code Status: Full Code Admit Date: 01/04/2021 Length of stay: 2 day(s) Summary: Patient is a 65-year-old female who presented to [facility] after being transferred from an outside facility. She presented intubated and sedated for acute on chronic hypoxemic hypercapnic respiratory failure. 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 Patient had net of -2.37L of UOP after 2 doses of 40 mg IV Furosemide. Patient has paroxysmal atrial fibrillation which was previously controlled on Diltiazem. Patient continues to diurese well with further 3.335L of net urine output. Improvement in respiratory status with aggressive diuresis. Heart rate being controlled with Metoprolol tartrate 25mg PO q 6 hours with PRN IV Lopressor. Recent Events: Patient transitioned to PO Metoprolol 25 mg q 6 hours overnight with relative rate control. Tele: Atrial fibrillation without RVR. No acute ischemic changes. Subjective: Patient is intubated and sedated with propofol. Has pain control with Fentanyl. She is arousable to normal verbal stimuli. She is unable to speak due to intubation. She is following commands and answering Yes and No questions appropriately. She endorses mild lower extremity pain which is baseline for her. She denies chest pain but does feel mildly short of breath. No further concerns at this time. Vital Signs and I/Os: Vital sign ranges over the past 24 hours (retrieved 01/06/2021 at 7:18 AM): Tmax (24 hours): 98.3 ???F (36.8 ???C) Pulse Av.9 Min: 98 Max: 173 Systolic (24hrs), Av , Min:89 , Max:149 Diastolic (24hrs), Av, Min:54, Max:97 MAP (mmHg) Av mmHg Min: 67 mmHg Max: 110 mmHg Resp Av Min: 14 Max: 53 SpO2 Av.4 % Min: 89 % Max: 100 % Patient Vitals for the past 24 hrs: BP Temp Temp src Pulse Resp SpO2 O2 Device FiO2 (%) 01/06/21 0700 -- -- -- 99 14 98 % -- -- 01/06/21 0600 89/72 -- -- 111 14 97 % -- -- 01/06/21 0514 127/86 -- -- 101 17 97 % -- -- 01/06/21 0400 110/60 -- -- 98 14 95 % -- -- 01/06/21 0318 -- 97.7 ???F (36.5 ???C) Axillary -- -- -- -- -- 01/06/21 0300 123/63 -- -- 110 14 96 % -- -- 01/06/21 0200 124/79 -- -- 104 14 95 % -- -- 01/06/21 0110 -- -- -- 104 14 95 % Ventilator 40 01/06/21 0100 120/89 -- -- 109 14 95 % -- -- 01/06/21 0000 109/69 -- -- 106 14 97 % -- -- 01/05/21 2346 -- 97.8 ???F (36.6 ???C) Oral 101 14 100 % Ventilator 40 01/05/21 2300 90/54 -- -- 107 14 97 % -- -- 01/05/21 2200 107/79 -- -- 104 14 97 % Ventilator 40 01/05/21 2100 111/71 -- -- 106 14 98 % Ventilator 40 01/05/212020 -- -- -- 136 -- 97 % Ventilator 40 01/05/21 2000 120/59 -- -- 112 14 97 % Ventilator 40 01/05/21 1900 116/71 98.1 ???F (36.7 ???C) Oral 113 14 98 % Ventilator -- 01/05/21 1800 114/65 -- -- 117 14 98 % -- -- 01/05/21 1708 144/86 -- -- 122 14 99 % -- -- 01/05/21 1635 149/88 -- -- 120 15 96 % -- -- 01/05/21 1559 -- -- -- 104 14 99 % Ventilator 40 01/05/21 1500 139/71 -- -- 114 14 99 % -- -- 01/05/21 1417 137/88 97.6 ???F (36.4 ???C) Oral 120 14 99 % Ventilator 40 01/05/21 1400 146/97 -- -- 126 18 99 % -- -- 01/05/21 1313 -- -- -- 105 19 99 % -- -- 01/05/21 1308 -- -- -- 109 15 99 % -- 40 01/05/21 1300 136/82 -- -- 119 15 99 % -- -- 01/05/21 1200 141/79 -- -- 112 15 98 % Ventilator 50 01/05/21 1100 144/93 98.3 ???F (36.8 ???C) Oral 131 24 98 % Ventilator 50 01/05/21 1031 -- -- -- 129 -- 98 % -- 50 01/05/21 1022 -- -- -- -- -- -- -- 50 01/05/21 1000 132/88 -- -- 120 19 98 % -- -- 01/05/21 0954 -- -- -- 110 15 100 % -- -- 01/05/21 0944 -- -- -- 113 20 89 % -- 50 01/05/21 0900 127/79 -- -- 105 31 96 % -- -- 01/05/21 0800 131/68 -- -- 133 53 99 % Ventilator 40 01/05/21 0758 -- -- -- 169 17 99 % -- -- 01/05/21 0757 -- -- -- 173 18 95 % -- -- Admission Weight Today's Weight BMI 41.63 Change in Weight: Current value is 298.5 lb (135.399 kg) on 01/06/2021 at 0519 -19.6 lb (-8.900 kg) (-6.17 %) from 318.1 lb (144.299 kg) on 01/05/2021 at 0521 (previous value) -20.1 lb (-9.116 kg) (-6.31 %) from 318.6 lb (144.515 kg) on 01/04/2021 at 1300 (first value for this admission) Intake/Output Summary (Last 24 hours) at 01/06/2021 0718 Last data filed at 01/06/2021 0700 Gross per 24 hour Intake 1954.69 ml Output 5175 ml Net -3220.31 ml In: 1954.7 (14.4 mL/kg) [I.V.:1894.7 (0.6 mL/kg/hr)] Out: 5175 (38.2 mL/kg) [Urine:5175 (1.6 mL/kg/hr)] Net: -3220.3 Weight: 135.4 kg Lines/Drains Peripheral IV Access: 01/04/21 1119 20 gauge Right Antecubital (Active) Site Assessment WNL;Dressing intact 01/05/21 1200 Infusion Status Port #1 Infusing;Patent 01/05/21 1200 Number of days: 1 Peripheral IV Access: 01/04/21 1119 22 gauge Left Antecubital (Active) Site Assessment WNL;Dressing intact 01/05/21 1200 (more content not included)... [facility] 01-06-2021 Note Problem: Discharge P camilla: Goal: Discharge needs of the adult patient will be met Outcome: Not Progressing Continuing plan of care as ordered, medications, vital signs and telemetry. Lasix IV and strict intake and output. [facility] 01-05-2021 Note SECLUSION/RESTRAINTS PROVIDER [id number] EVALUATION NOTE Alexa Izquierdo was evaluated on 01/05/21 at 20:10. The attending, Dr. Lucas will be notified. The patient's immediate situation: Patient pulling medical devices. The patient's reaction to the intervention(s): Patient failed to respond to verbal redirection. The patient's medical and behavioral condition at this time: Patient in critical condition and requires medical devices. Need to continue restraint/seclusion order: Yes Patient needs restraints due to risk of harm to self [facility] 01-05-2021 Note CICU Progress Note Alexa Izquierdo 65 year old [id number] lbs MRN/Room: [id number]/CP3-153/1 Code Status: Full Code Admit Date: 01/04/2021 Length of stay: 1 day(s) Summary: Patient is a 65-year-old female who presented to [facility] after being transferred from an outside facility. She presented intubated and sedated for acute on chronic hypoxemic hypercapnic respiratory failure. 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 Patient had net of -2.37L of UOP after 2 doses of 40 mg IV Furosemide. Patient has paroxysmal atrial fibrillation which was previously controlled on Diltiazem. Recent Events: Patient had increased ventricular response with rates into the 140s. She was given Lopressor 5 mg IV x 2 with appropriate response. Tele: Atrial fibrillation with intermittent RVR. No acute ischemic changes. Subjective: Patient is intubated and sedated with propofol. However, she does become arousable with minimal touch with verbal stimuli. She is somnolent and unable to answer questions. She remains hemodynamically stable. Vital Signs and I/Os: Vital sign ranges over the past 24 hours (retrieved 01/05/2021 at 12:52 PM): Tmax (24 hours): 99.5 ???F (37.5 ???C) Pulse Av.6 Min: 98 Max: 173 Systolic (24hrs), Av , Min:117 , Max:144 Diastolic (24hrs), Av, Min:64, Max:96 MAP (mmHg) Av.7 mmHg Min: 84 mmHg Max: 106 mmHg Resp Av.7 Min: 14 Max: 53 SpO2 Av.6 % Min: 89 % Max: 100 % Patient Vitals for the past 24 hrs: BP Temp Temp src Pulse Resp SpO2 O2 Device FiO2 (%) 01/05/21 1200 141/79 -- -- 112 15 98 % Ventilator 50 01/05/21 1100 144/93 98.3 ???F (36.8 ???C) Oral 131 24 98 % Ventilator 50 01/05/21 1031 -- -- -- 129 -- 98 % -- 50 01/05/21 1022 -- -- -- -- -- -- -- 50 01/05/21 1000 132/88 -- -- 120 19 98 % -- -- 01/05/21 0954 -- -- -- 110 15 100 % -- -- 01/05/21 0944 -- -- -- 113 20 89 % -- 50 01/05/21 0900 127/79 -- -- 105 31 96 % -- -- 01/05/21 0800 131/68 -- -- 133 53 99 % Ventilator 40 01/05/21 0758 -- -- -- 169 17 99 % -- -- 01/05/21 0757 -- -- -- 173 18 95 % -- -- 01/05/21 0700 121/84 98.5 ???F (36.9 ???C) Oral 124 17 96 % Ventilator 40 01/05/21 0600 125/68 -- -- 124 16 95 % Ventilator 40 01/05/21 0500 138/85 -- -- 114 14 94 % -- -- 01/05/21417 -- -- -- 113 22 95 % Ventilator 40 01/05/21416 -- -- -- 115 22 95 % Ventilator 40 01/05/21 0400 117/74 98.7 ???F (37.1 ???C) Axillary 116 22 94 % Ventilator 40 01/05/21 0300 129/73 -- -- 111 22 95 % -- -- 01/05/21 0200 131/77 -- -- 115 22 96 % -- -- 01/05/21 0110 128/79 -- -- 112 22 97 % Ventilator 40 01/05/21 0100 -- -- -- 108 -- 98 % -- -- 01/05/21 0041 -- -- -- 107 -- 92 % Ventilator 40 01/05/21 0012 -- -- -- 112 -- 95 % Ventilator 40 01/04/21 2300 132/64 -- -- 109 20 96 % -- -- 01/04/21 2202 130/72 -- -- 115 19 96 % -- -- 01/04/21 2100 140/76 -- -- 114 22 100 % Ventilator -- 01/04/21 2005 136/83 -- -- 115 22 99 % Ventilator 40 01/04/21 2000 136/83 98.9 ???F (37.2 ???C) Axillary 117 22 92 % -- -- 01/04/21 1800 125/80 -- -- 106 22 100 % -- -- 01/04/21 1700 135/70 -- -- 98 22 -- -- -- 01/04/21 1634 -- -- -- -- -- -- Ventilator 50 01/04/21 1628 -- -- -- 106 22 100 % Ventilator 50 01/04/21 1600 134/66 -- -- 98 22 -- -- -- 01/04/21 1500 143/83 -- -- 109 22 -- -- -- 01/04/21 1400 134/96 99.5 ???F (37.5 ???C) Axillary 104 22 100 % Ventilator -- 01/04/21 1300 133/83 -- -- 109 22 100 % -- -- Admission Weight Today's Weight BMI 44.37 Change in Weight: Current value is 318.1 lb (144.299 kg) on 01/05/2021 at 0521 -0.5 lb (-0.216 kg) (-0.15 %) from 318.6 lb (144.515 kg) on 01/04/2021 at 1300 (previous value) -0.5 lb (-0.216 kg) (-0.15 %) from 318.6 lb (144.515 kg) on 01/04/2021 at 1300 (first value for this admission) Intake/Output Summary (Last 24 hours) at 01/05/2021 1252 Last data filed at 01/05/2021 1207 Gross per 24 hour Intake 2439.68 ml Output 5000 ml Net -2560.32 ml In: 2054.9 (14.2 mL/kg) [I.V.:1404.9 (0.4 mL/kg/hr)] Out: 4425 (30.7 mL/kg) [Urine:4425 (1.3 mL/kg/hr)] Net: -2370.1 Weight: 144.3 kg Lines/Drains Peripheral IV Access: 01/04/21 1119 20 gauge Right Antecubital (Active) Site Assessment WNL;Dressing intact 01/05/21 1200 Infusion Status Port #1 Infusing;Patent 01/05/21 1200 Number of days: 1 Peripheral IV Access: 01/04/21 1119 22 gauge Left Antecubital (Active) Site Assessment WNL;Dressing intact 01/05/21 1200 Infusion Status Port #1 Infusing;Patent 01/05/21 1200 Number of days: 1 Peripheral IV Access: 01/04/21 1930 20 gauge Anterior;Right;Upper Arm (Active) $ Lines: $ IV Start (procedure) 01/04/211929 Site Assessment WNL;Dressing intact 01/05/21 1200 Infusion Status Port #1 Infusing;Patent 01/05/21 1200 Number of days: 1 Peripheral IV Access: 01/05/21 0800 22 gauge Anterior;Right Hand (Active) $ Lines: $ IV Start (proc (more content not included)... [facility] 01-04-2021 Note SECLUSION/RESTRAINTS PROVIDER [id number] EVALUATION NOTE Alexa Izquierdo was evaluated on 01/04/21 at 2055. The attending, Dr. Lucas was notified. The patient's immediate situation: Patient pulling medical devices. The patient's reaction to the intervention(s): Patient did not redirect with verbal cues. The patient's medical and behavioral condition at this time: Patient in critical condition and requires medical devices. 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, with long-term current use of insulin (CMS-[facility]) Stage 2 chronic kidney disease Hypokalemia Hypopotassemia Hypoxemia Hypocalcemia [facility] Diagnosis Chronic combined systolic and diastolic heart failure (CMS-HCC)- Primary Chronic combined systolic and diastolic heart failure Type 2 diabetes mellitus with stage 2 chronic kidney disease, with long-term current use of insulin (CMS-[facility]) Hyperkalemia Hyperpotassemia Left knee pain, unspecified chronicity documented [facility] Diagnosis Chronic combined systolic and diastolic heart failure (CMS-HCC)- Primary Chronic combined systolic and diastolic heart failure Type 2 diabetes mellitus with stage 2 chronic kidney disease, with long-term current use of insulin (CMS-HCC) Benign essential hypertension Essential hypertension, benign [facility] Diagnosis Chronic combined systolic and diastolic heart failure (CMS-HCC)- Primary Chronic combined systolic and diastolic heart failure Morbid obesity (CMS-HCC) Morbid obesity Major depressive disorder with single episode, in full remission ([facility]) Insomnia, unspecified type [facility] Diagnosis Type 2 diabetes mellitus with stage 2 chronic kidney disease, with long-term current use of insulin (CMS-HCC)- Primary Mixed hyperlipidemia Benign essential hypertension Essential hypertension, benign Chronic combined systolic and diastolic heart failure (CMS-HCC) Chronic combined systolic and diastolic heart failure Paroxysmal atrial fibrillation (CMS-HCC) Atrial fibrillation Morbid obesity ([facility]-HCC) Morbid obesity [facility] Benign essential hypertension- Primary Essential hypertension, benign Chronic combined systolic and diastolic heart failure (CMS-HCC) Chronic combined systolic and diastolic heart failure Mucopurulent chronic bronchitis ([facility]-HCC) Mucopurulent chronic bronchitis Sleep apnea, unspecified type [facility] Diagnosis Allergic conjunctivitis of both eyes- Primary Other chronic allergic conjunctivitis Morbid obesity ([facility]-HCC) Morbid obesity Mucopurulent chronic bronchitis ([facility]-HCC) Mucopurulent chronic bronchitis Xerosis of skin [facility] filed[facility] filedocumented in [facility] on filedocumented in [facility] filedocumented in [facility] filedocumented in [facility] filedocumented in [facility] Summary Purpose Family History No Family History Records FoundNo Family History Records FoundNo Family History Records FoundNo Family History Records FoundNo Family History Records Found Advance Directives No Advanced Directives Records FoundNo Advanced Directives Records FoundNo Advanced Directives Records FoundNo Advanced Directives Records FoundNo Advanced Directives Records Found Additional Source Comments INFORMATION SOURCE (unrecogn ized section and content) DATE CREATED AUTHOR 01/19/2020 [facility] DATE CREATED AUTHOR AUTHOR'S ORGANIZ ATION 02/13/2021 [facility] DATE CREATED AUTHOR AUTHOR'S ORGANIZ ATION 07/05/2021 [facility] DATE CREATED AUTHOR AUTHOR'S ORGANIZ ATION 07/18/2021 [facility] DATE CREATED AUTHOR AUTHOR'S ORGANIZ ATION 07/05/2022 [facility] Teams (unrecognized sec tion and content) Plc Technician Relationship Specialty Start Date End Date Brayden Tomas DO [address] [facility] [place] [address] PCP - General Family Medicine 01/03/21 Plc Technician Relationship Specialty Start Date End Date Brayden Tomas DO [address] [place] [address] PCP - General Family Medicine 01/03/21 Plc Technician Relationship Specialty Start Date End Date Brayden Tomas DO [address] [place] [address] PCP - General Family Medicine 01/03/21 Plc Technician Relationship Specialty Start Date End Date Brayden Tomas DO [address] [place] [address] PCP - General Family Medicine 01/03/21 Plc Technician Relationship Specialty Start Date End Date Brayden Tomas DO [address] [place] [address] PCP - General Family Medicine 01/03/21 Reason for Visit (unrecogniz ed section and content) Reason Onset Date Comments High Blood Sugar - No Symptoms 03/23/2024 FOR RECORDS PERTAINING TO PATIENTS WHO ARE OR HAVE BEEN ENROLLED IN A CHEMICAL DEPENDENCY/SUBSTANCEABUSE PROGRAM, SOME INFORMATION MAY BE OMITTED. This clinical summary was aggregated from multiple sources. Caution should be exercised in using it in the provision of clinical care. This summary normalizes information from multiple sources, and as a consequence, information in this document may materially change the coding, format and clinical context of patient data. In addition, data may be omitted in some cases. CLINICAL DECISIONS SHOULD BE BASED ON THE PRIMARY CLINICAL RECORDS. [facility]. provides no warranty or guarantee of the accuracy or completeness of information in this document.
[2024-05-08 09:45] LABS: Basophils Absolute Auto 0.1 10^3/uL (0.0-0.1); Eosinophils Absolute Auto 0.4 10^3/uL (0.0-0.7); Eosinophils Percent Auto 4.6 % (0.9-7.0); Hematocrit 44.1 % (36.0-48.0); Hemoglobin 13.9 g/dL (12.0-16.0); Immature Granulocytes Abs Auto 0.06 10^3/uL (0.00-0.03); Immature Granulocytes Pct Auto 0.7 % (0.0-0.5); Lymphocytes Absolute Auto 2.2 10^3/uL (1.2-3.8); Lymphocytes Percent Auto 26.7 % (20.5-60.0); Mean Corpuscular HGB Conc 31.5 g/dL (29.9-35.2); Mean Corpuscular Hemoglobin 29.2 pg (26.7-34.0); Mean Corpuscular Volume 92.6 fL (81.0-99.0); Mean Platelet Volume 9.8 fL (9.5-13.5); Monocytes Absolute Auto 0.7 10^3/uL (0.3-0.8); Monocytes Percent Auto 8.7 % (1.7-12.0); Neutrophils Absolute Auto 4.8 10^3/uL (1.4-6.5); Neutrophils Percent Auto 58.3 % (43.0-75.0); Platelet Count 213 10^3/uL (150-450); Red Blood Count 4.76 10^6/uL (4.20-5.40); Red Cell Distribution Width 14.6 % (11.0-15.0); White Blood Count 8.3 10^3/uL (4.0-11.0)
[2024-05-08 09:59] LABS: Alanine Aminotransferase 18 U/L (14-59); Albumin Globulin Ratio 0.8; Albumin Level 3.1 g/dL (3.4-5.0); Alkaline Phosphatase 67 U/L (46-116); Aspartate Amino Transferase 19 U/L (15-37); BUN Creatinine Ratio 31.5; Bilirubin Total 0.5 mg/dL (0.2-1.0); Carbon Dioxide 31.8 mmol/L (21.0-32.0); Chloride 98 mmol/L (98-107); Estimated GFR (African America 60 (>=60 mL/min/1.73m^2); Estimated GFR (Non-African Ame 49 (>=60 mL/min/1.73m^2); Globulin 3.7 g/dL; Glucose 247 mg/dL (74-106); Potassium 5.8 mmol/L (3.5-5.1); Sodium 138 mmol/L (136-145); Total Protein 6.8 g/dL (6.4-8.2)
[2024-05-08 10:01] LABS: INR 1.08; Prothrombin Time 11.4 sec (9.0-11.6); Troponin I High Sensitivity 26.1 pg/mL (4.0-51.3)
[2024-05-08 10:47] LABS: Potassium 5.7 mmol/L (3.5-5.1)
[2024-05-08] MEDS: METHYLPREDNISOLONE SOD SUCC PF 125 MG/2 ML VIAL IVP (10:47)
[2024-05-08] MEDS: IPRATROPIUM/ALBUTEROL SULFATE 3 ML AMPUL.NEB IH (11:24)
[2024-05-08 11:26] VITALS: PULSE 98; O2SAT 95
[2024-05-08 12:32] VITALS: PULSE 88; O2SAT 95
--- NOTE | 2024-05-08 13:10 | ED_ITS ---
HPI - SOB/Dyspnea General Chief Complaint: Shortness of Breath/Dyspnea Stated Complaint: SHORTNESS OF BREATH Time Seen by Provider: 05/08/24 08:56 Source: patient and EMR Mode of arrival: ambulance History of Present Illness HPI Narrative: The patient have a history of the multiple comorbidities including COPD and CHF is coming to us from a residential facility with history of being bedridden complaining of shortness of breath for the last few days. The patient not a good historian as she is not giving any details about when discharge getting short of breath or she have any other symptoms. The patient does have a cough nonproductive that was noticed as she does not have any chest pain or nausea or vomiting By the time the patient arrived to the ER she was already provided with a breathing treatment and she was feeling better Related Data Home Medications ?Medication ?Instructions ?Recorded ?Confirmed Saccharomyces boulardii 250 mg 250 mg PO DAILY 11/25/22 11/25/22 capsule (Daily Probiotic (S. boulardii)) ammonium lactate 12 % topical cream 1 applic topical QPM 11/25/22 05/08/24 apixaban 5 mg tablet (Eliquis) 5 mg PO BID 11/25/22 05/08/24 bismuth subsalicylate 525 mg/15 mL 525 mg PO .q24 hours PRN diarrhea 11/25/22 11/25/22 oral suspension calcium carbonate (Calcium 500) 1,000 mg PO .q6 hours PRN 11/25/22 11/25/22 indigestion digoxin 125 mcg (0.125 mg) tablet 0.125 mg PO .QD 11/25/22 05/08/24 dulaglutide 3 mg/0.5 mL 3 mg subcut QWEEK 11/25/22 11/25/22 subcutaneous pen injector (Trulicity) empagliflozin 25 mg tablet 25 mg PO .QD 11/25/22 05/08/24 (Jardiance) flash glucose sensor (FreeStyle 11/25/22 11/25/22 Mara 14 Day Sensor kit) fluticasone 500 mcg-salmeterol 50 1 inh inhalation BID 11/25/22 11/25/22 mcg/dose blistr powdr for inhalation (Advair Diskus) hydrocodone 5 mg-acetaminophen 325 1 tab PO Q8H pain 07/01/23 12/12/24 mg tablet ipratropium 0.5 mg-albuterol 3 mg 3 ml inhalation Q4H PRN shortness 11/25/22 05/08/24 (2.5 mg base)/3 mL nebulization of breath or wheezing soln ipratropium bromide 21 mcg (0.03 2 spray intranasal TID PRN allergy 11/25/2205/20 %) nasal spray symptoms loperamide 2 mg capsule 4 mg PO Q6H PRN loose stool 11/25/22 05/08/24 (Anti-Diarrheal (loperamide)) metoprolol succinate 100 mg 100 mg PO .QD 11/25/22 05/08/24 tablet,extended release 24 hr nystatin 100,000 unit/gram topical 1 applic topical DAILY PRN 11/25/22 05/08/24 powder excoriation ondansetron HCl 4 mg tablet 4 mg PO BID PRN nausea and vomiting 11/25/22 11/25/22 polyethylene glycol 3350 17 17 g PO DAILY PRN constipation 11/25/22 05/08/24 gram/dose oral powder (ClearLax) psyllium 1 packet PO DAILY 11/25/22 05/08/24 sennosides 8.6 mg tablet (Shannen-victor manuel) 8.6 mg PO DAILY PRN constipation 11/25/22 11/25/22 spironolactone 50 mg tablet 50 mg PO .QD 11/25/22 11/25/22 trazodone 50 mg tablet 50 mg PO .QHS 11/25/22 11/25/22 triamcinolone acetonide 0.1 % 1 applic topical .QHS PRN TOP 11/25/22 11/26/22 topical cream melatonin 5 mg tablet 10 mg PO .QHS 11/26/22 05/08/24 atorvastatin 80 mg tablet 80 mg PO .QHS 05/08/24 05/08/24 azelastine 0.05 % eye drops 2 drp ophthalmic (eye) BID 05/08/24 05/08/24 ceftriaxone 1 gram solution for 05/08/24 injection diclofenac sodium 1 % topical gel 4 g topical BID 05/08/24 05/08/24 furosemide 20 mg tablet 20 mg PO DAILY 05/08/24 05/08/24 gabapentin 300 mg capsule 300 mg PO .QHS 05/08/24 05/08/24 insulin degludec 100 unit/mL (3 unit subcut 05/08/24 mL) subcutaneous pen (Tresiba FlexTouch U-100 insulin) insulin lispro 100 unit/mL 10 unit subcut BIDWM 05/08/24 05/08/24 subcutaneous pen lidocaine HCl 10 mg/mL (1 %) 05/08/24 injection solution sacubitril 24 mg-valsartan 26 mg 1 tab PO BID 05/08/24 05/08/24 tablet (Entresto) semaglutide 2 mg/dose (8 mg/3 mL) 2 mg subcut QWEEK 05/08/24 05/08/24 subcutaneous pen injector (Ozempic) tiotropium 2.5 mcg-olodaterol 2.5 inhalation 05/08/24 mcg/actuation mist for inhalation (Stiolto Respimat) Previous Rx's ?Medication ?Instructions ?Recorded methylprednisolone 4 mg tablets in 4 mg PO DAILY #21 ea 11/27/22 a dose pack (Methylpred DP) prednisone 50 mg tablet 50 mg PO DAILY 5 days #5 tabs 05/08/24 Allergies Allergy/AdvReac Type Severity Reaction Status Date / Time cephalexin (From Keflex) Allergy Intermediate Unknown Verified 05/08/24 08:57 silver sulfadiazine (From Allergy Intermediate Unknown Verified 05/08/24 08:57 Silvadene) Review of Systems ROS Status of ROS 10 or more systems reviewed and unremark able except as noted in history and below [facility] Medical History (Updated 05/08/24 @ 13:09 by Amanda Piña MD) Congestive heart failure ?I50.9 - Heart failure, unspecified (ICD-10) Gout ?M10.9 - Gout, unspecified (ICD-10) Anxiety ?F41.9 - Anxiety disorder, unspecified (ICD-10) Morbid obesity ?E66.01 - Morbid (severe) obesity due to excess calories (ICD-10) Atopic dermatitis ?L20.9 - Atopic dermatitis, unspecified (ICD-10) Tachycardia ?R00.0 - Tachycardia, unspecified (ICD-10) Obesity (BMI 30-39.9) ?E66.9 - Obesity, unspecified (ICD-10) Paroxysmal atrial fibrillation ?I48.0 - Paroxysmal atrial fibrillation (ICD-10) Benign essential hypertension ?I10 - Essential (primary) hypertension (ICD-10) Type 2 diabetes mellitus with hyperglycemia ?E11.65 - Type 2 diabetes mellitus with hyperglycemia (ICD-10) COPD with exacerbation ?J44.1 - Chronic obstructive pulmonary disease with (acute) exacerbation (ICD-10) Acute on chronic respiratory failure with hypoxia and hypercapnia ?J96.21 - Acute and chronic respiratory failure with hypoxia (ICD-10) ?J96.22 - Acute and chronic respiratory failure with hypercapnia (ICD-10) Acute on chronic HFrEF (heart failure with reduced ejection fraction) ?I50.23 - Acute on chronic systolic (congestive) heart failure (ICD-10) Social History Little interest or pleasure in doing things: not at all Feeling down, depressed, or hopeless: not at all Exam Narrative Exam Narrative: Nurses notes and vital signs reviewed and patient is not hypoxic. General: Well-appearing and in no apparent distress. Skin: Warm, dry, no pallor noted. No rash. Head: Normocephalic, atraumatic. Neck: Supple, non-tender. Cardiovascular: Irregularly irregular rhythm rate and rhythm without murmur, gallop or rub. Respiratory: No accessory muscle use or respiratory distress. Lungs are clear to auscultation, no wheezing, rales or rhonchi Chest Wall: no tenderness Back: No midline thoracic or lumbar vertebral tenderness. No CVA tenderness Bilateral chronic skin changes with the patient have atrophy of both legs more the left than the right. Chronic edema mostly in the right side GI: Abdomen is soft, non-distended. Normal bowel sounds. No masses appreciated. No tenderness to palpation. No rebound, guarding, or rigidity noted. Neurological: A&O x4. No cranial nerve dysfunction observed. Constitutional Vital Signs, click to edit/add: Last Vital Signs Temp 97.6 F 05/08/24 08:58 Pulse 102 H 05/08/24 15:58 Resp 18 05/08/24 15:58 BP 106/64 05/08/24 08:58 Pulse Ox 95 05/08/24 15:58 O2 Del Method Room Air 05/08/24 15:58 O2 Flow Rate 3 05/08/24 14:15 Course Vital Signs Vital signs: Vital Signs Temperature 97.6 F 05/08/24 08:58 Pulse Rate 102 H 05/08/24 08:58 Respiratory Rate 24 H 05/08/24 08:58 Blood Pressure 106/64 05/08/24 08:58 Pulse Oximetry 96 05/08/24 08:58 Oxygen Delivery Method Nasal Cannula 05/08/24 08:58 Oxygen Delivery Flow Rate 3 05/08/24 08:58 Temperature 97.6 F 05/08/24 08:58 Pulse Rate 102 H 05/08/24 15:58 Respiratory Rate 18 05/08/24 15:58 Blood Pressure 106/64 05/08/24 08:58 Pulse Oximetry 95 05/08/24 15:58 Oxygen Delivery Method Room Air 05/08/24 15:58 Oxygen Delivery Flow Rate 3 05/08/24 14:15 MDM - SOB/Dyspnea MDM Narrative Medical decision making narrative: The patient chest x-ray showed no acute pathology EKG showing A-fib with a heart rate of [address] elevation or depression The patient chest x-ray showed no acute pathology her blood workup showed no acute pathology as well except for elevated potassium level and that could be secondary to the fact that the patient being provided with a potassium supplement The patient had her potassium supplements stopped in addition to Lokelma started she have a normal kidney function and the EKG does not show any hyperkalemic changes Patient provided with 1 dose of Lokelma today and she will just have to stop the supplement and follow-up with the potassium tomorrow Regarding the patient breathing the patient was feeling better after Solu-Medrol as well as breathing treatment she was discharged home with prednisone in addition to continue supportive care her presentation mostly secondary to COPD exacerbation that was mild as the patient was already feeling better after breathing treatment before arrival The patient have no infiltrate on the x-ray that require any antibiotic and with her history of being DNR CC the patient was discharged with prednisone as supportive care for his COPD BNP was normal Lab Data Labs: Lab Results 05/08/24 05/08/24 Range/Units 09:38 10:31 WBC 8.3 (4.0-11.0) 10^3/uL RBC 4.76 (4.20-5.40) 10^6/uL Hgb 13.9 (12.0-16.0) g/dL Hct 44.1 (36.0-48.0) % MCV 92.6 (81.0-99.0) fL MCH 29.2 (26.7-34.0) pg MCHC 31.5 (29.9-35.2) g/dL RDW 14.6 (11.0-15.0) % Plt Count 213 (150-450) 10^3/uL MPV 9.8 (9.5-13.5) fL Neut % (Auto) 58.3 (43.0-75.0) % Lymph % (Auto) 26.7 (20.5-60.0) % Sierra % (Auto) 8.7 (1.7-12.0) % Eos % (Auto) 4.6 (0.9-7.0) % Baso % (Auto) 1.0 (0.2-2.0) % Neut # (Auto) 4.8 (1.4-6.5) 10^3/uL Lymph # (Auto) 2.2 (1.2-3.8) 10^3/uL Sierra # (Auto) 0.7 (0.3-0.8) 10^3/uL Eos # (Auto) 0.4 (0.0-0.7) 10^3/uL Baso # (Auto) 0.1 (0.0-0.1) 10^3/uL Abs Immat Gran (auto) 0.06 H (0.00-0.03) 10^3/uL Imm/Tot Granulo (auto) 0.7 H (0.0-0.5) % PT 11.4 (9.0-11.6) sec INR 1.08 Sodium 138 (136-145) mmol/L Potassium 5.8 H 5.7 H (3.5-5.1) mmol/L Chloride 98 (98-107) mmol/L Carbon Dioxide 31.8 (21.0-32.0) mmol/L Anion Gap 14.0 BUN 35.0 H (7.0-18.0) mg/dL Creatinine 1.11 H (0.55-1.02) mg/dL Est GFR ( Amer) 60 (>=60 mL/min/1.73m^2) Est GFR (Non-Af Amer) 49 L (>=60 mL/min/1.73m^2) BUN/Creatinine Ratio 31.5 Glucose 247 H (74-106) mg/dL Calcium 10.0 (8.5-10.1) mg/dL Total Bilirubin 0.5 (0.2-1.0) mg/dL AST 19 (15-37) U/L ALT 18 (14-59) U/L Alkaline Phosphatase 67 (46-116) U/L Troponin I High Sens 26.1 (4.0-51.3) pg/mL NT-Pro-B Natriuret Pep 352.0 (<=900.0) pg/mL Total Protein 6.8 (6.4-8.2) g/dL Albumin 3.1 L (3.4-5.0) g/dL Globulin 3.7 g/dL Albumin/Globulin Ratio 0.8 Discharge Plan Discharge Chief Complaint: Shortness of Breath/Dyspnea Clinical Impression: COPD exacerbation, Acute hyperkalemia Patient Disposition: Home, Self-Care Time of Disposition Decision: 13:05 Condition: Good Prescriptions / Home Meds: New prednisone 50 mg tablet 50 mg PO DAILY 5 Days Qty: 5 0RF Discontinued potassium chloride 20 mEq tablet,ER particles/crystals 20 meq PO TID No Action ipratropium-albuterol 0.5 mg-3 mg(2.5 mg base)/3 mL solution for nebulization 3 ml INHALATION Q4H PRN (Reason: shortness of breath or wheezing) trazodone 50 mg tablet 50 mg PO .QHS ondansetron HCl 4 mg tablet 4 mg PO BID PRN (Reason: nausea and vomiting) metoprolol succinate 100 mg tablet extended release 24 hr 100 mg PO .QD triamcinolone acetonide 0.1 % cream 1 applic TOPICAL .QHS PRN (Reason: TOP) Rx Instructions: APPLY TO FEET fluticasone propion-salmeterol [Advair Diskus] 500-50 mcg/dose blister with device 1 inh INHALATION BID digoxin 125 mcg (0.125 mg) tablet 0.125 mg PO .QD Patient Comments: HOLD FOR HR < 60 ipratropium bromide 21 mcg (0.03 %) spray,non-aerosol 2 spray INTRANASAL TID PRN (Reason: allergy symptoms) spironolactone 50 mg tablet 50 mg PO .QD Eliquis 5 mg tablet 5 mg PO BID Jardiance 25 mg tablet 25 mg PO .QD Trulicity 3 mg/0.5 mL pen injector 3 mg subcut QWEEK ammonium lactate 12 % cream 1 applic topical QPM Rx Instructions: apply to BLE topically every evening bismuth subsalicylate 525 mg/15 mL suspension 525 mg PO .q24 hours PRN (Reason: diarrhea) Patient Comments: PRN every 24 hours for diarrhea Rx Instructions: do not exceed 8 doses in a 24 hour period (DME) FreeStyle Mara 14 Day Sensor Kit See Rx Instructions .ROUTE Rx Instructions: As directed polyethylene glycol 3350 [ClearLax] 17 gram/dose powder 17 g PO DAILY PRN (Reason: constipation) loperamide [Anti-Diarrheal (loperamide)] 2 mg capsule 4 mg PO Q6H PRN (Reason: loose stool) psyllium Packet 1 packet PO DAILY Rx Instructions: mix into at least 8 oz of water or juice before administering hydrocodone-acetaminophen 5-325 mg tablet 1 tab PO Q8H nystatin 100,000 unit/gram powder 1 applic topical DAILY PRN (Reason: excoriation) Patient Comments: APPLY TO PERINEUM Saccharomyces boulardii [Daily Probiotic (S. boulardii)] 250 mg capsule 250 mg PO DAILY Rx Instructions: probiotic sennosides [Shannen-victor manuel] 8.6 mg tablet 8.6 mg PO DAILY PRN (Reason: constipation) calcium carbonate [Calcium 500] 500 mg calcium (1,250 mg) tablet,chewable 1,000 mg PO .q6 hours PRN (Reason: indigestion) melatonin 5 mg tablet 10 mg PO .QHS methylprednisolone [Methylpred DP] 4 mg tablets,dose pack 4 mg PO DAILY Qty: 21 0RF Rx Instructions: as directed lidocaine HCl 10 mg/mL (1 %) solution atorvastatin 80 mg tablet 80 mg PO .QHS azelastine 0.05 % drops 2 drp OPHTHALMIC (EYE) BID Rx Instructions: BOTH EYES ceftriaxone 1 gram recon soln gabapentin 300 mg capsule 300 mg PO .QHS furosemide 20 mg tablet 20 mg PO DAILY insulin lispro 100 unit/mL insulin pen 10 unit SUBCUT BIDWM diclofenac sodium 1 % gel 4 g TOPICAL BID Rx Instructions: APPLY TO LEFT KNEE insulin degludec [Tresiba FlexTouch U-100] 100 unit/mL (3 mL) insulin pen SUBCUT Stiolto Respimat 2.5-2.5 mcg/actuation mist INHALATION sacubitril-valsartan [Entresto] 24-26 mg tablet 1 tab PO BID Ozempic 2 mg/dose (8 mg/3 mL) pen injector 2 mg SUBCUT QWEEK Rx Instructions: ON Print Language: Latvian Instructions: COPD (Chronic Obstructive Pulmonary Disease) (DC), Hyperkalemia (ED) Additional Instructions: Please stop the potassium supplement and the patient have to have a blood workup done within 24 hours for potassium level Referrals: MERVAT ARECHIGA [Primary Care Provider] - 1 week
[2024-05-08] MEDS: SODIUM ZIRCONIUM CYCLOSILICATE 10 GM POWD.PACK PO (13:19)
[2024-05-08 13:20] VITALS: PULSE 90; O2SAT 95
[2024-05-08 14:15] VITALS: PULSE 88; O2SAT 93
[2024-05-08] MEDS: HYDROCODONE/ACET 5-325 MG TABLET 1 TAB PO (15:36)
[2024-05-08 15:58] VITALS: PULSE 102; O2SAT 95
== END 2024-05-08 17:07 | disposition home or self-care (01) ==
PROVIDERS: Emergency Provider Emergency Medicine; PCP Internal Medicine
DX: J44.1 Chronic obstructive pulmonary disease with (acute) exacerbation (principal); E87.5 Hyperkalemia; R06.02 Shortness of breath; I50.9 Heart failure, unspecified; Z66 Do not resuscitate
CPT/HCPCS: 36415; 71045; 80053; 83880; 84132; 84484; 85025; 85610; 93005; 94640; 96374; 99285; J2919